=== PATIENT | male | born 1985 | race African-American/Black ===

== ENCOUNTER 2016-11-15 01:43 | Emergency (ER) | payer OTHER ==
--- NOTE | 2016-11-15 01:57 | PDOC ---
History of Present Illness - General Chief Complaint: Rash Stated Complaint: CHEMICAL BURN Time Seen by Provider: 11/15/16 01:57 History Source: Patient - History of Present Illness Initial Comments: 11/15/16 02:25 30 year old male c/o b/l axilla skin maceration after using Veet wax product to body prior to arrival. Past History - Past Medical History Allergies/Adverse Reactions: Allergies Allergy/AdvReac Type Severity Reaction Status Date / Time shellfish derived Allergy Verified 04/10/16 01:23 Home Medications: Ambulatory Orders Methimazole [Tapazole] 10 mg PO DAILY 01/07/15 Diphenhydramine [Benadryl -] 50 mg NR DAILY PRN #20 capsule 04/10/16 Divalproex *ER* [Depakote *ER* -] 250 mg PO DAILY 04/10/16 Bacitracin 1 applic TP TID #1 tube 11/15/16 GI Disorders: Yes (GERD) Seizures: Yes Thyroid Disease: Yes - Immunization History Immunization Up to Date: No - Psycho/Social/Smoking Cessation Hx Anxiety: No Suicidal Ideation: No Smoking History: Unknown if ever smoked Have you smoked in the past 12 months: No Hx Alcohol Use: No Drug/Substance Use Hx: No Substance Use Type: None *DC/Admit/Observation/Transfer Diagnosis at time of Disposition: Skin maceration - Discharge Dispostion Disposition: HOME Condition at time of disposition: Fair - Prescriptions Prescriptions: Bacitracin 1 applic TP TID #1 tube - Patient Instructions Printed Discharge Instructions: How to Perform a Skin Exam, Bacitracin Topical Additional Instructions: apply bacitracin to both axilla. apply ice to the area. keep skin clean and dry follow up with your doctor for a wound check
[2016-11-15 02:30] VITALS: BP 131/87; PULSE 72; TEMP 97.5; BMI 29.5
== END 2016-11-15 02:33 | disposition home or self-care (01) ==
LOC: JER 01:43 → SUPCPDRO 01:43 → JER 02:33
DX: T22.542A Corrosion of first degree of left axilla, initial encounter (principal); T22.5 Corrosion of first degree of shoulder and upper limb, except wrist and hand; T49.4X1A Poisoning by keratolytics, keratoplastics, and other hair treatment drugs and preparations, accidental (unintentional), initial encounter; Y92.038 Other place in apartment as the place of occurrence of the external cause; K21.9 Gastro-esophageal reflux disease without esophagitis; R56.9 Unspecified convulsions; E07.9 Disorder of thyroid, unspecified
CPT/HCPCS: 99281-25

== ENCOUNTER 2017-09-16 12:56 | Emergency (ER) | payer OTHER ==
[2017-09-16 13:01] VITALS: BP 147/72; PULSE 100; TEMP 98.1; BMI 24.3
--- NOTE | 2017-09-16 13:18 | PDOC ---
History of Present Illness - General Chief Complaint: RX Refill Stated Complaint: RX REFILL (PCP SENT) Time Seen by Provider: 09/16/17 13:06 History Source: Patient Exam Limitations: No Limitations - History of Present Illness Initial Comments: 09/16/17 13:15 31 yr pt with history of folliculitus pt asking for refill for permetherin cream pt has used in the past and has had good results Past History - Past Medical History Allergies/Adverse Reactions: Allergies Allergy/AdvReac Type Severity Reaction Status Date / Time shellfish derived Allergy Verified 09/16/17 13:01 Home Medications: Ambulatory Orders Methimazole [Tapazole] 10 mg PO DAILY 01/07/15 Diphenhydramine [Benadryl -] 50 mg NR DAILY PRN #20 capsule 04/10/16 Divalproex *ER* [Depakote *ER* -] 250 mg PO DAILY 04/10/16 Permethrin 5% Topical Cream [Elimite -] 1 applic TP ONCE #1 tube 09/16/17 COPD: No GI Disorders: Yes (GERD) Seizures: Yes Thyroid Disease: Yes (graves disease) - Immunization History Immunization Up to Date: No - Suicide/Smoking/Psychosocial Hx Smoking History: Unknown if ever smoked Have you smoked in the past 12 months: No Hx Alcohol Use: No Drug/Substance Use Hx: No Substance Use Type: None *Physical Exam - Vital Signs Last Vital Signs Temp Pulse Resp BP Pulse Ox 98.1 F 100 H 20 147/72 99 09/16/17 12:57 09/16/17 12:57 09/16/17 12:57 09/16/17 12:57 09/16/17 12:57 - Physical Exam General Appearance: Yes: Nourished, Appropriately Dressed HEENT: positive: EOMI, SALOME Integumentary: positive: Normal Color, Dry, Warm, Other (facial de luna folliculitus , no abscesses, lower legs with same ) *DC/Admit/Observation/Transfer Diagnosis at time of Disposition: Chronic folliculitis - Discharge Dispostion Disposition: HOME Condition at time of disposition: Good - Prescriptions Prescriptions: Permethrin 5% Topical Cream [Elimite -] 1 applic TP ONCE #1 tube - Referrals Referrals: Mary Ann Davis MD [Primary Care Provider] - - Patient Instructions Additional Instructions: use the permetherin cream as directed follow with the tile erector as planned on October 23 cool water to bathe - Post Discharge Activity
== END 2017-09-16 13:19 | disposition home or self-care (01) ==
LOC: JERFT 12:56
DX: L73.8 Other specified follicular disorders (principal)
CPT/HCPCS: 99281-25

== ENCOUNTER 2017-11-12 11:24 | Inpatient (IN) | payer OTHER ==
[2017-11-12 11:57] VITALS: TEMP 98.8; BMI 24.0
--- NOTE | 2017-11-12 12:19 | PDOC ---
Attending Attestation - Resident Resident Name: ChristinaGeraldo lock - ED Attending Attestation I have performed the following: I have examined & evaluated the patient, The case was reviewed & discussed with the resident, I agree w/resident's findings & plan, Exceptions are as noted - HPI HPI: 11/12/17 12:19 31y M hx of graves, seizure d/o, presents with complaint of lightheadedness/ heart racing, cp started when he was walking to the bus. Pt notes he has felt like this for a few days, but feels more lightheaded today than usual. The patient notes that the last time he followed up with his PMD and derm a few weeks ago, he was noted to have a high heart rate. He was given a referral to endocrine, but his appointment is not for another month or two. The pt also endorses mild chest pain/sob. denies any leg sewlling, hemoptysis. GENERAL: The patient is awake, alert, and fully oriented, Nontoxic - in no acute distress, jittery HEAD: Normocephalic, atraumatic. EYES: exalthamos ENT: Normal voice, Moist mucous membranes. NECK: Normal range of motion, supple LUNGS: Breath sounds equal, clear to auscultation bilaterally. No wheezes, no rhonchi, no rales. HEART: tachycardic ABDOMEN: Soft, nontender, No guarding, no rebound. . No CVA tenderness EXTREMITIES: Normal range of motion, no edema. No clubbing or cyanosis. No cords, erythema, or tenderness. NEUROLOGICAL: No facial assymetry, Normal speech, moving all 4 extermities spontaneously and ysmmetrically PSYCH: Normal mood, normal affect. SKIN: Warm, Dry, normal turgor, - Critical Care Time Total Critical Care Time: 35 Critical Care Statement: The care of this patient involved high complexity decision making to prevent further life threatening deterioration of the patient 's condition and/or to evaluate & treat vital organ system(s) failure or risk of failure. - Medical Decision Making 11/12/17 13:13 suspect hyperhtyhridsm no other symptoms to suggest his tachycardia is compensating for another etiology pts labs reviewed noted for very low thryoid function tests based on his TSH and clinical condtion, suspect thyroid storm will give propanolol IV will admit for further management and nik lconsult endocrine
[2017-11-12 12:35] LABS: BASO % 0.5 % (0-2.0); EOS % 2.5 % (0-4.5); HEMATOCRIT 38.7 % (35.4-49); HEMOGLOBIN 13.2 GM/dL (11.7-16.9); LYMPH % 39.5 % (8-40); MCH 28.3 pg (25.7-33.7); MCHC 34.2 g/dl (32.0-35.9); MEAN CELL VOLUME 82.9 fl (80-96); MEAN PLT VOLUME 9.7 fl (7.5-11.1); MONO % 16.6 % (3.8-10.2); NEUT % 40.9 % (42.8-82.8); PLATELET COUNT 210 K/MM3 (134-434); RBC 4.67 M/mm3 (4.00-5.60); RDW 13.7 % (11.9-15.9); WHITE BLOOD COUNT 3.2 K/mm3 (4.0-10.0)
--- NOTE | 2017-11-12 12:37 | PDOC ---
History of Present Illness - General Chief Complaint: Syncope/Near Syncope Stated Complaint: WEAKNESS, DEHYDRATED Time Seen by Provider: 11/12/17 12:18 - History of Present Illness Initial Comments: The patient is a 31M with a history of Graves' Dz and Seizure d/o (not on ppx) who presents with mild, substernal, non-radiating, sharp chest pain associated with palpitations, lightheadedness, and some anxiety. He reports that he chronically feels this way, 2-3 times/month, however, today his symptoms are worse. He denies BLACK, blurry/change in vision, SOB, N/V/D, dysuria, smoking or other drug use. He states that in the past he has been held at his PCP's office before for with similar symptoms, was not given any medication, and allowed to leave once his heart rate slowed. He denies personal history of cardiac dz; however, he states having had a cardiac cath in the past but does not recall the result and denies procedural intervention after. He was also on metoprolol in the past, but it as discontinued by his PCP 'several' years ago because he was told he didn't need it anymore. He endorses a family history of stroke and MD in his aunt. Denies family history of sudden . 11/12/17 12:28 Past History - Past Medical History Allergies/Adverse Reactions: Allergies Allergy/AdvReac Type Severity Reaction Status Date / Time shellfish derived Allergy Verified 11/12/17 12:24 Home Medications: Ambulatory Orders Methimazole [Tapazole] 10 mg PO DAILY 01/07/15 Diphenhydramine [Benadryl -] 50 mg NR DAILY PRN 11/12/17 COPD: No GI Disorders: Yes (GERD) Seizures: Yes Thyroid Disease: Yes (graves disease) - Immunization History Immunization Up to Date: No - Suicide/Smoking/Psychosocial Hx Smoking History: Never smoked Have you smoked in the past 12 months: No Hx Alcohol Use: No Drug/Substance Use Hx: No Substance Use Type: None Review of Systems - Review of Systems Able to Perform ROS?: Yes Comments:: GENERAL/CONSTITUTIONAL: No fever or chills HEAD, EYES, EARS, NOSE AND THROAT: No change in vision. No ear pain or discharge. No sore throat CARDIOVASCULAR: +palpitations, No current chest pain or shortness of breath RESPIRATORY: No cough, wheezing, or hemoptysis GASTROINTESTINAL: No nausea, vomiting, diarrhea or constipation, and denies blood in stool GENITOURINARY: No dysuria, frequency, or change in urination MUSCULOSKELETAL: No joint or muscle swelling or pain. No neck or back pain SKIN: No rash NEUROLOGIC: No headache, vertigo, loss of consciousness, or change in strength/ sensation ENDOCRINE: +Graves' Dz, +anxiety, +palpitations, No increased thirst. No abnormal weight change HEMATOLOGIC/LYMPHATIC: No anemia, easy bleeding, or history of blood clots ALLERGIC/IMMUNOLOGIC: No hives or skin allergy 11/12/17 12:55 Is the patient limited Pashto proficient: No *Physical Exam - Vital Signs Last Vital Signs Temp Pulse Resp BP Pulse Ox 98.8 F 132 H 20 129/79 99 11/12/17 11:52 11/12/17 11:52 11/12/17 11:52 11/12/17 11:52 11/12/17 11:52 - Physical Exam Comments: GENERAL: Awake, alert, and fully oriented, appears anxious HEAD: No signs of trauma, normocephalic, atraumatic EYES: PERRLA, EOMI, sclera anicteric, conjunctiva clear ENT: Hearing grossly normal, nares patent, oropharynx clear without exudates. Dry mucosa NECK: Normal ROM, supple, no lymphadenopathy LUNGS: No distress, speaks full sentences, clear to auscultation bilaterally HEART: Tachycardic with regular rhythm, normal S1 and S2, no murmurs appreciated , peripheral pulses normal and equal bilaterally ABDOMEN: Soft, mild RLQ TTP (reportedly chronic), normoactive bowel sounds. No guarding, no rebound. EXTREMITIES : Normal inspection, Normal range of motion, no edema. No clubbing or cyanosis. NEUROLOGICAL: Cranial nerves II through XII grossly intact. Normal speech, normal gait, no focal sensorimotor deficits SKIN: Warm, Dry, no rashes or lesions noted 11/12/17 12:47 ED Treatment Course - LABORATORY CBC & Chemistry Diagram: 11/12/17 12:30 11/12/17 12:30 Medical Decision Making - Medical Decision Making The patient is a 31M with a history of Graves' Dz and Seizure d/o (not on ppx) who presents with mild, substernal, non-radiating, sharp chest pain associated with palpitations, lightheadedness, and some anxiety. Ddx: ACS, Graves' dx/hyperthyroidism/thyrotoxicosis, PNX, PNA, possibly hypovolemia/dehydration, cocaine/stimulant use, considered but less likely infection ED Course: CMP, CBC, Cardiac Enzymes, TSH, UA, UDS, ECG, CXR 1L NS 11/12/17 12:37 Patient extremely anxious and states that he wants to leave AMA because he feels anxious and threatened. He voiced he feels like he's having a 'Thyroid flair'. However he states that he doesn't feel comfortable but refuses to give specific examples why. The patient appears to be extremely anxious, is tachycardic to the 130s, and diaphoretic. TSH < 0.01, and CXR negative for PNX, not likely PE Propranolol 1mg over 10min for Thyrotoxicosis 11/12/17 14:30 Patient's anxiety moderately improved s/p Propranolol Tachycardia somewhat improved to 110s 11/12/17 15:[address] Layton regarding the patient's Graves'/Thyrotoxicosis. He recommends Methimazole 10mg PO Q8H and Propanolol 10mg PO Q6H. Will give a dose of Methimazole. Patient was only taking Methimazole 10mg PO daily at home. 11/12/17 17:41 Patient eloped from the hospital. Staff plan to contact police to search for patient as he eloped with an IV in place. *DC/Admit/Observation/Transfer Diagnosis at time of Disposition: Thyrotoxicosis Qualifiers: Thyrotoxicosis type: other Thyrotoxic crisis or storm presence: without thyrotoxic crisis or storm Qualified Code(s): E05.80 - Other thyrotoxicosis without thyrotoxic crisis or storm - Discharge Dispostion Disposition: ELOPED Condition at time of disposition: Guarded Decision to Admit order: Yes - Referrals - Patient Instructions - Post Discharge Activity
[2017-11-12 12:51] LABS: ALBUMIN 3.8 g/dl (3.4-5.0); ANION GAP 8 (8-16); BILIRUBIN,TOTAL 0.6 mg/dL (0.2-1.0); BLOOD UREA NITROGEN 15 mg/dL (7-18); CALCIUM 11.5 mg/dL (8.5-10.1); CHLORIDE 98 mmol/L (98-107); CO2 29 mmol/L (21-32); CREATININE 0.6 mg/dL (0.7-1.3); GLUCOSE,RANDOM 94 mg/dL (74-106); SGPT/ALT 27 U/L (12-78); SODIUM 135 mmol/L (136-145); TOT PROT 7.2 g/dl (6.4-8.2)
[2017-11-12 12:59] LABS: ALK PHOS 137 U/L (45-117)
[2017-11-12 13:01] LABS: POTASSIUM 4.6 mmol/L (3.5-5.1); SGOT/AST 48 U/L (15-37)
[2017-11-12 14:26] LABS: URINE APPEARANCE CLEAR; URINE BILIRUBIN NEGATIVE (<2.0 mg/dL); URINE COLOR YELLOW; URINE GLUCOSE (UA) NEGATIVE (NEGATIVE); URINE KETONE NEGATIVE (NEGATIVE); URINE LEUK ESTERASE NEGATIVE (NEGATIVE); URINE NITRITE NEGATIVE (NEGATIVE); URINE PROTEIN NEGATIVE (NEGATIVE); URINE UROBILINOGEN NEGATIVE mg/dL (0.2-1.0)
[2017-11-12 14:36] LABS: OPIATES, URI NEGATIVE ng/ml (CUTOFF=300); URINE AMPHETAMINES NEGATIVE ng/ml (CUTOFF=500); URINE BARBITURATES NEGATIVE ng/ml (CUTOFF=200); URINE BENZODIAZEPINES NEGATIVE ng/ml (CUTOFF=200)
[2017-11-12 14:44] LABS: COCAINE, UR NEGATIVE ng/ml (CUTOFF=300); METHADONE, UR NEGATIVE ng/ml (CUTOFF=300); PHENCYCLIDINE,URINE NEGATIVE ng/ml (CUTOFF=25)
[2017-11-12 14:51] VITALS: BP 126/77; PULSE 113
--- NOTE | 2017-11-12 15:59 | EKG ---
Test Reason : Blood Pressure : / mmHG Vent. Rate : 121 BPM Atrial Rate : 121 BPM P-R Int : 168 ms QRS Dur : 088 ms QT Int : 298 ms P-R-T Axes : 075 041 064 degrees QTc Int : [address] ELEVATION, CONSIDER EARLY REPOLARIZATION, PERICARDITIS, OR INJURY ABNORMAL ECG WHEN COMPARED WITH ECG OF 12-NOV-2017 12:01, NO SIGNIFICANT CHANGE WAS FOUND Confirmed by GARIMA BLOCK MD ([id number]) on 11/12/2017 3:59:18 PM Referred By: Confirmed By:GARIMA BLOCK MD
[2017-11-12] MEDS ORDERED: METHIMAZOLE 10 MG TABLET (FP) PO ONE (17:40)
--- NOTE | 2017-11-12 19:10 | HP ---
Admitting History and Physical - Primary Care Physician PCP: Alexey Crawley - Admission History of Present Illness: 31y M hx of graves, seizure d/o, presents with complaint of lightheadedness/ heart racing, cp started when he was walking to the bus. Pt notes he has felt like this for a few days, but feels more lightheaded today than usual. The patient notes that the last time he followed up with his PMD and derm a few weeks ago, he was noted to have a high heart rate. He was given a referral to endocrine, but his appointment is not for another month or two. The pt also endorses mild chest pain/sob. denies any leg sewlling, hemoptysis. - Past Medical History Endocrine: Yes: Hyperthyroidism - Smoking History Smoking history: Never smoked Have you smoked in the past 12 months: No - Alcohol/Substance Use Hx Alcohol Use: No Home Medications - Allergies Allergies/Adverse Reactions: Allergies Allergy/AdvReac Type Severity Reaction Status Date / Time shellfish derived Allergy Verified 11/12/17 12:24 - Home Medications Home Medications: Ambulatory Orders Methimazole [Tapazole] 10 mg PO DAILY 01/07/15 Diphenhydramine [Benadryl -] 50 mg NR DAILY PRN 11/12/17 Physical Examination Vital Signs: Vital Signs Temperature 98.8 F 11/12/17 11:52 Pulse Rate 113 H 11/12/17 14:50 Respiratory Rate 18 11/12/17 14:50 Blood Pressure 126/77 11/12/17 14:50 O2 Sat by Pulse Oximetry (%) 99 11/12/17 11:52 Constitutional: Yes: No Distress HENT: Yes: Atraumatic Neck: Yes: Supple Cardiovascular: Yes: Regular Rate and Rhythm Respiratory: Yes: CTA Bilaterally Gastrointestinal: Yes: Normal Bowel Sounds Extremities: Yes: WNL Neurological: Yes: Alert, Oriented Labs: CBC, BMP 11/12/17 12:30 11/12/17 12:30 Problem List - Problems (1) Abnormal echocardiogram Code(s): R93.1 - ABNORMAL FINDINGS ON DX IMAGING OF HEART AND COR CIRC (2) Anxiety Code(s): F41.9 - ANXIETY DISORDER, UNSPECIFIED (3) Graves disease Code(s): E05.00 - THYROTOXICOSIS W DIFFUSE GOITER W/O THYROTOXIC CRISIS Assessment/Plan Laboratory Tests 11/12/17 11/12/17 11/12/17 12:30 12:30 14:15 WBC 3.2 L RBC 4.67 Hgb 13.2 Hct 38.7 MCV 82.9 MCH 28.3 MCHC 34.2 RDW 13.7 Plt Count 210 MPV 9.7 Absolute Neuts (auto) 1.3 Neutrophils % 40.9 L Lymphocytes % 39.5 Monocytes % 16.6 H D Eosinophils % 2.5 Basophils % 0.5 Nucleated RBC % 0 Sodium 135 L Potassium 4.6 D Chloride 98 Carbon Dioxide 29 Anion Gap 8 BUN 15 Creatinine 0.6 L Creat Clearance w eGFR > 60 Random Glucose 94 Calcium 11.5 H D Total Bilirubin 0.6 AST 48 H D ALT 27 D Alkaline Phosphatase 137 H Creatine Kinase 114 Troponin I < 0.02 Total Protein 7.2 Albumin 3.8 TSH < 0.01 L D Urine Color Yellow Urine Appearance Clear Urine pH 5.0 Ur Specific [place] 1.008 Urine Protein Negative Urine Glucose (UA) Negative Urine Ketones Negative Urine Blood Negative Urine Nitrite Negative Urine Bilirubin Negative Urine Urobilinogen Negative Ur Leukocyte Esterase Negative Opiates Screen Methadone Screen Barbiturate Screen Phencyclidine Screen Ur Amphetamines Screen MDMA (Ecstasy) Screen Benzodiazepines Screen Cocaine Screen U Marijuana (THC) Screen 11/12/17 14:15 WBC RBC Hgb Hct MCV MCH MCHC RDW Plt Count MPV Absolute Neuts (auto) Neutrophils % Lymphocytes % Monocytes % Eosinophils % Basophils % Nucleated RBC % Sodium Potassium Chloride Carbon Dioxide Anion Gap BUN Creatinine Creat Clearance w eGFR Random Glucose Calcium Total Bilirubin AST ALT Alkaline Phosphatase Creatine Kinase Troponin I Total Protein Albumin TSH Urine Color Urine Appearance Urine pH Ur Specific [place] Urine Protein Urine Glucose (UA) Urine Ketones Urine Blood Urine Nitrite Urine Bilirubin Urine Urobilinogen Ur Leukocyte Esterase Opiates Screen Negative Methadone Screen Negative Barbiturate Screen Negative Phencyclidine Screen Negative Ur Amphetamines Screen Negative MDMA (Ecstasy) Screen Negative Benzodiazepines Screen Negative Cocaine Screen Negative U Marijuana (THC) Screen Negative
[2017-11-13] MEDS ORDERED: METHIMAZOLE 10 MG TABLET (FP) PO SCH (10:00)
--- NOTE | 2017-11-13 17:05 | EKG ---
Test Reason : Blood Pressure : / mmHG Vent. Rate : 111 BPM Atrial Rate : 111 BPM P-R Int : 154 ms QRS Dur : 098 ms QT Int : 316 ms P-R-T Axes : 083 063 071 degrees QTc Int : 429 ms SINUS TACHYCARDIA POSSIBLE LEFT ATRIAL ENLARGEMENT RSR' OR QR PATTERN IN V1 SUGGESTS RIGHT VENTRICULAR CONDUCTION DELAY NONSPECIFIC T WAVE ABNORMALITY ABNORMAL ECG Confirmed by MD KORTNEY, APARNA ([id number]) on 11/13/2017 5:04:36 PM Referred By: Confirmed By:APARNA SHEETS MD
== END 2017-11-12 17:00 | disposition left against medical advice (07) | DRG 424 ==
LOC: JER 11:24 → JERBED 14:22
PROVIDERS: ADMIT Internal Medicine; ATTEND Internal Medicine
DX: E05.80 Other thyrotoxicosis without thyrotoxic crisis or storm (principal); R07.9 Chest pain, unspecified; F41.9 Anxiety disorder, unspecified; K21.9 Gastro-esophageal reflux disease without esophagitis
CPT/HCPCS: 36415; 71045-TC-FY; 80053; 80307; 81003; 82550; 84443; 84484; 85025; 93005; 93010; 99284-25

== ENCOUNTER 2018-02-07 18:44 | Observation (INO) | payer OTHER ==
--- NOTE | 2018-02-07 18:59 | PDOC ---
Rapid Medical Evaluation Chief Complaint: Chest Pain Time Seen by Provider: 02/07/18 18:55 Medical Evaluation: Allergies Allergy/AdvReac Type Severity Reaction Status Date / Time shellfish derived Allergy Verified 11/12/17 12:24 02/07/18 18:56 I have performed a brief in person evaluation of this patient. The patient present with a CC of: Cough and CP Pt has been having CP and cough x 1 week Pertinent PE findings: Lungs Clear Heart Tachy, no rubs or gallops MS: Moves extremities without difficulty. Psych: Appropriate affect I have ordered the following: Cardiac protocol The patient will proceed to the ED for further evaluation: Discharge Disposition - Diagnosis Respiratory abnormalities - Referrals - Patient Instructions - Post Discharge Activity
[2018-02-07 19:02] VITALS: BMI 21.7
[2018-02-07] MEDS ORDERED: ALBUTEROL SO4 2.5/IPRATROPIUM 0.5 INH SOL 3 ML VIAL.NEB. NEB ONE (19:58)
--- NOTE | 2018-02-07 20:04 | PDOC ---
History of Present Illness - General Chief Complaint: Chest Pain Stated Complaint: PALPITATIONS Time Seen by Provider: 02/07/18 18:55 History Source: Patient Exam Limitations: Clinical Condition - History of Present Illness Initial Comments: 02/07/18 19:59 Patient with history of hyperthyroidism on methimazole present with complain of 5 day history of persistent cough, chest tightness, palpitations, nasal congestion and malaise. Patient reported he was seen in another emergency room 5 days ago and was sent home on antibiotics for bronchitis the symptoms still persist. Patient reports finishing the course of 5 day antibiotics. Patient reported last dose of methimazole taking a year ago and only takes his medication when he has hyperthyroidism flareup. patient also report nonbloody diarrhea for 5 days now.Patient denies fever, chills, nausea, vomiting, sweats or dizziness. 02/07/18 20:03 Timing/Duration: other (5 days) Past History - Past Medical History Allergies/Adverse Reactions: Allergies Allergy/AdvReac Type Severity Reaction Status Date / Time shellfish derived Allergy Verified 11/12/17 12:24 Home Medications: Ambulatory Orders Methimazole [Tapazole] 10 mg PO DAILY 01/07/15 Diphenhydramine [Benadryl -] 50 mg NR DAILY PRN 11/12/17 COPD: No GI Disorders: Yes (GERD) Seizures: Yes Thyroid Disease: Yes (graves disease) - Immunization History Immunization Up to Date: No - Suicide/Smoking/Psychosocial Hx Smoking History: Never smoked Have you smoked in the past 12 months: No Hx Alcohol Use: No Drug/Substance Use Hx: No Substance Use Type: None Review of Systems - Review of Systems Able to Perform ROS?: Yes Is the patient limited Uzbek proficient: No Constitutional: Yes: Malaise. No: Chills, Fever, Night Sweats, Weakness HEENTM: Yes: Nose Congestion. No: Eye Pain, Blurred Vision, Tearing, Recent change in vision, Double Vision, Cataracts, Ear Pain, Ocular Prothesis, Ear Discharge, Nose Pain, Tinnitus, Nose Bleeding, Hearing Loss, Throat Pain, Throat Swelling, Mouth Pain, Dental Problems, Difficulty Swallowing, Mouth Swelling, Other Respiratory: Yes: Cough, Productive cough, Other (bronchospasm). No: Orthopnea , SOB with Exertion, SOB at Rest, Stridor, Wheezing, Hemoptysis Cardiac (ROS): Yes: Irregular Heart Rate, Palpitations, Chest Tightness. No: Chest Pain, Edema, Lightheadedness, Syncope ABD/GI: Yes: Diarrhea. No: Abdominal Distended, Nausea, Rectal Bleeding, Vomiting, Abdominal cramping All Other Systems: Reviewed and Negative *Physical Exam - Vital Signs Last Vital Signs Temp Pulse Resp BP Pulse Ox 99.6 F 114 H 22 H 126/70 100 02/07/18 18:53 02/07/18 18:53 02/07/18 18:53 02/07/18 18:53 02/07/18 18:53 - Physical Exam Comments: 02/07/18 20:04 GENERAL: Well developed, well nourished. Awake and alert. No acute distress. mildy anxious HEENT: Normocephalic, atraumatic. PERRLA, EOMI. No conjunctival pallor. Sclera are non-icteric. Moist mucous membranes. Oropharynx is clear. NECK: Supple. Full ROM. CARDIOVASCULAR: Regular rate and rhythm. No murmurs, rubs, or gallops. Distal pulses are 2+ and symmetric. PULMONARY: No evidence of respiratory distress. Lungs clear to auscultation bilaterally. No wheezing, rales or rhonchi. ABDOMINAL: Soft. Non-tender. Non-distended. No rebound or guarding. No organomegaly. Normoactive bowel sounds. MUSCULOSKELETAL Normal range of motion at all joints. EXTREMITIES: No cyanosis. No clubbing. No edema. No calf tenderness. SKIN: Warm and dry. Normal capillary refill. No rashes. No jaundice. NEUROLOGICAL: Alert, awake, appropriate. Gait is normal without ataxia. PSYCHIATRIC: Cooperative. Good eye contact. Appropriate mood General Appearance: Yes: Nourished, Appropriately Dressed, Other (anxious) ED Treatment Course - LABORATORY CBC & Chemistry Diagram: 02/07/18 20:35 02/07/18 20:35 Medical Decision Making - Medical Decision Making 02/07/18 20:04 Patient with history of hyperthyroidism presenting with complain of 5 day history of palpitations, persistent cough, nasal congestion, diarrhea and malaise. Patient seen in another emergency room and given 5 day course of antibiotics which patient does not know the name and still have persistent symptoms. Exam significant for patient being mildly anxious. Lungs clear to auscultation bilateral. Basic labs ordered. Thyroid profile ordered. Chest x- ray ordered. When the treatment ordered to help with bronchospasm. Treat based on imaging lab results. 02/07/18 22:18 elavated tropinis and d-dimer level. TSH low and T3 high. patient likely in thyroid storm. propanolol 60mg given. ASA 325mg PO given. methimazole 10mg PO given. V/Q scan ordered r/o PE instead of CT/PE protocol due to hyperthyroidism. b/l LE doppler ordered to r/o DVT. CXR ordered. low potassium and magnesium levels. will replete. patient to be admitted for observation 02/07/18 22:47 02/08/18 00:05 solu-medrol 125m IV ordered. patient accepted for admission by hospitalist . spoke to bitumastic applier Dr. Durant who will see patient in the AM 02/08/18 00:16 02/08/18 00:17 *DC/Admit/Observation/Transfer Diagnosis at time of Disposition: Respiratory abnormalities Thyrotoxicosis Qualifiers: Thyrotoxicosis type: unspecified thyrotoxicosis type Thyrotoxic crisis or storm presence: with thyrotoxic crisis or storm Qualified Code(s): E05.91 - Thyrotoxicosis, unspecified with thyrotoxic crisis or storm - Discharge Dispostion Condition at time of disposition: Stable Decision to Admit order: Yes Decision to Admit order Date/Time: 02/07/18 22:33 Patient with symptoms of thyroid storm and possible PE. Case discussed with Dr. Layton and hospitalist. both agrees to admit patient for observation. patient to b admitted to telemetry as per Dr. Layton for observation - Referrals - Patient Instructions - Post Discharge Activity
[2018-02-07 20:52] LABS: BASO % 0.6 % (0-2.0); EOS % 0.2 % (0-4.5); HEMATOCRIT 31.3 % (35.4-49); HEMOGLOBIN 10.5 GM/dL (11.7-16.9); LYMPH % 32.8 % (8-40); MCH 27.8 pg (25.7-33.7); MCHC 33.7 g/dl (32.0-35.9); MEAN CELL VOLUME 82.4 fl (80-96); MEAN PLT VOLUME 9.4 fl (7.5-11.1); MONO % 8.4 % (3.8-10.2); PLATELET COUNT 201 K/MM3 (134-434); RBC 3.79 M/mm3 (4.00-5.60); RDW 13.3 % (11.9-15.9); WHITE BLOOD COUNT 7.8 K/mm3 (4.0-10.0)
[2018-02-07 21:18] LABS: ALBUMIN 3.1 g/dl (3.4-5.0); ALK PHOS 106 U/L (45-117); ANION GAP 12 MMOL/L (8-16); BILIRUBIN,TOTAL 0.7 mg/dL (0.2-1); BLOOD UREA NITROGEN 8 mg/dL (7-18); CALCIUM 7.5 mg/dL (8.5-10.1); CHLORIDE 104 mmol/L (98-107); CO2 27 mmol/L (21-32); CREATININE 0.4 mg/dL (0.55-1.3); GLUCOSE,RANDOM 90 mg/dL (74-106); POTASSIUM 3.4 mmol/L (3.5-5.1); SGOT/AST 32 U/L (15-37); SGPT/ALT 27 U/L (13-61); SODIUM 142 mmol/L (136-145); TOT PROT 5.9 g/dl (6.4-8.2)
[2018-02-07 21:25] LABS: INR 1.47 (0.83-1.09); PROTHROMBIN TIME (PATIENT) 17.4 SEC (9.7-13.0)
[2018-02-07] MEDS ORDERED: ASPIRIN 325 MG ENTERIC COATED TABLET (FP) PO ONE (21:45)
[2018-02-07] MEDS ORDERED: ASPIRIN 325 MG ENTERIC COATED TABLET (FP) ONE (22:14)
[2018-02-07] MEDS ORDERED: METHIMAZOLE 10 MG TABLET (FP) PO SCH (23:00)
[2018-02-08] MEDS ORDERED: methylPREDNISolone NA SUCC 125 MG/2 ML VIAL IVPUSH ONE (00:03)
[2018-02-08] MEDS ORDERED: ENOXAPARIN NA (PORCINE) 80 MG/0.8 ML DISP.SYRIN SQ ONE ×2 (00:11→03:22)
[2018-02-08] MEDS ORDERED: POTASSIUM CHLORIDE TABS 20 MEQ TABLET.ER (FP) PO ONE ×2 (02:05→03:21)
--- NOTE | 2018-02-08 02:08 | HP ---
CHIEF COMPLAINT: chest pain, cough, palpitations PCP: Herman @ [facility]; Endo: Calin HISTORY OF PRESENT ILLNESS: This is a 32 year old male with a past medical history of hyperthyroid presented to the ED with cough, chest tightess, palpitations, nasal congestion and malaise since last week. Was seen at [facility] and prescribed azithromycin without relief. Also reports nonbloody diarrhea x 5 days. Pt reports he has not taken his methimazole since May when a physician stopped it because he "didn't need it anymore and it made his blood too thin." ER course was notable for: (1) TSH <0.01; FT4 5.78 (2) troponin 0.08 (3) ddimer 1017 Recent Travel: pt denies PAST MEDICAL HISTORY: hyperthyroid, GERD PAST SURGICAL HISTORY: pt denies Social History: Smoking: quit 2 year ago Alcohol: pt denies Drugs: pt denies Family History: mother with DM father alive and well siblings alive and well Allergies shellfish derived Allergy (Verified 11/12/17 12:24) HOME MEDICATIONS: 3 Medication Instructions omeprazole 20 mg PO DAILY fluticasone nasal spray REVIEW OF SYSTEMS CONSTITUTIONAL: Present: malaise Absent: fever, chills, diaphoresis, generalized weakness, loss of appetite, weight change HEENT: Present: nasal congestion Absent: rhinorrhea, throat pain, throat swelling, difficulty swallowing, mouth swelling, ear pain, eye pain, visual changes CARDIOVASCULAR: Present: chest pain Absent: syncope, palpitations, irregular heart rate, lightheadedness, peripheral edema RESPIRATORY: Present: cough Absent: shortness of breath, dyspnea with exertion, orthopnea, wheezing, stridor , hemoptysis GASTROINTESTINAL: Absent: abdominal pain, abdominal distension, nausea, vomiting, diarrhea, constipation, melena, hematochezia GENITOURINARY: Absent: dysuria, frequency, urgency, hesitancy, hematuria, flank pain, genital pain MUSCULOSKELETAL: Absent: myalgia, arthralgia, joint swelling, back pain, neck pain SKIN: Absent: rash, itching, pallor HEMATOLOGIC/IMMUNOLOGIC: Absent: easy bleeding, easy bruising, lymphadenopathy, frequent infections ENDOCRINE: Absent: unexplained weight gain, unexplained weight loss, heat intolerance, cold intolerance NEUROLOGIC: Absent: headache, focal weakness or paresthesias, dizziness, unsteady gait, seizure, mental status changes, bladder or bowel incontinence PSYCHIATRIC: Absent: anxiety, depression, suicidal or homicidal ideation, hallucinations. PHYSICAL EXAMINATION Vital Signs - 24 hr 3 02/07/18 02/07/18 18:53 19:15 Temperature 99.6 F 99.0 F Pulse Rate 114 H Pulse Rate [ 110 H Left Radial] Respiratory 22 H 20 Rate Blood Pressure 126/70 Blood Pressure 126/72 [Left Arm] O2 Sat by Pulse 100 100 Oximetry (%) GENERAL: Awake, alert, and fully oriented, in no acute distress. HEAD: Normal with no signs of trauma. EYES: Pupils equal, round and reactive to light, extraocular movements intact, sclera anicteric, conjunctiva clear. No lid lag. EARS, NOSE, THROAT: Ears normal, nares patent, oropharynx clear without exudates. Moist mucous membranes. NECK: Normal range of motion, supple without lymphadenopathy, JVD, or masses. LUNGS: Spastic cough noted. Breath sounds equal, clear to auscultation bilaterally. No wheezes, and no crackles. No accessory muscle use. HEART: Regular rate and rhythm, tachycardia noted, normal S1 and S2 without murmur, rub or gallop. ABDOMEN: Soft, nontender, not distended, normoactive bowel sounds, no guarding, no rebound, no masses. No hepatomegaly or splenomegaly. MUSCULOSKELETAL: Normal range of motion at all joints. No bony deformities or tenderness. No CVA tenderness. UPPER EXTREMITIES: 2+ pulses, warm, well-perfused. No cyanosis. No clubbing. No peripheral edema. LOWER EXTREMITIES: 2+ pulses, warm, well-perfused. No calf tenderness. tr peripheral edema bilat ankles NEUROLOGICAL: Cranial nerves II-XII intact. Normal speech. Normal gait. PSYCHIATRIC: Cooperative. Good eye contact. Appropriate mood and affect. SKIN: Warm, dry, normal turgor, no rashes or lesions noted, normal capillary refill. Laboratory Results - last 24 hr 3 02/07/18 02/07/18 02/07/18 20:35 20:35 20:35 WBC 7.8 RBC 3.79 L Hgb 10.5 L Hct 31.3 L D MCV 82.4 MCH 27.8 MCHC 33.7 RDW 13.3 Plt Count 201 MPV 9.4 Absolute Neuts (auto) 4.5 Neutrophils % 58.0 D Lymphocytes % 32.8 Monocytes % 8.4 Eosinophils % 0.2 D Basophils % 0.6 Nucleated RBC % 0 PT with INR 17.40 H INR 1.47 H D-Dimer 1017 H Sodium Potassium Chloride Carbon Dioxide Anion Gap BUN Creatinine Creat Clearance w eGFR Random Glucose Calcium Magnesium Total Bilirubin AST ALT Alkaline Phosphatase Creatine Kinase Troponin I Total Protein Albumin TSH Free T4 3 02/07/18 20:35 WBC RBC Hgb Hct MCV MCH MCHC RDW Plt Count MPV Absolute Neuts (auto) Neutrophils % Lymphocytes % Monocytes % Eosinophils % Basophils % Nucleated RBC % PT with INR INR D-Dimer Sodium 142 Potassium 3.4 L Chloride 104 Carbon Dioxide 27 Anion Gap 12 BUN 8 Creatinine 0.4 L Creat Clearance w eGFR > 60 Random Glucose 90 Calcium 7.5 L Magnesium 1.0 L Total Bilirubin 0.7 AST 32 ALT 27 Alkaline Phosphatase 106 Creatine Kinase 90 Troponin I 0.08 H Total Protein 5.9 L Albumin 3.1 L TSH < 0.01 L Free T4 5.78 H ASSESSMENT/PLAN: 32yM with PMH hyperthyroid and GERD presented to the ED with cough, chest tightness, palpitations, nasal congestion, malaise, nonbloody diarrhea. chest pain with elevated D dimer and troponin - + tachycardia, unable to obtain CTA due to hyperthyroid - US doppler study pending, CXR pending - admit to tele, trend trops - VQ scan ordered, Pulm consult for approval - lovenox 80mg x 1 dose acute bronchitis/URI - tx with azithromycin already, no elevated WBC or fever, defer further antibiotic course - albuterol nebs QID - cont home fluticasone nasal GERD - home omeprazole changed to formulary protonix DVT PPX - received full dose lovenox x 1 dose, f/u for further treatment/PPX FEN - tolerating po - BMP in AM - regular diet as tolerated Dispo: pt currently requires further observation for management of his emergent condition.
[2018-02-08] MEDS ORDERED: methylPREDNISolone NA SUCC 125 MG/2 ML VIAL ONE (03:22)
[2018-02-08] MEDS ORDERED: METHIMAZOLE 10 MG TABLET (FP) PO SCH ×2 (06:00→22:16)
[2018-02-08 06:52] VITALS: BP 129/86; PULSE 96; TEMP 98
[2018-02-08] MEDS ORDERED: ALBUTEROL SO4 0.083% IH SOL 2.5 MG/3 ML VIAL.NEB. NEB SCH (08:00)
--- NOTE | 2018-02-08 09:35 | DS ---
Physical Exam: HOSPITAL COURSE: Date of Admission:02/07/18 Date of Discharge: 02/08/18 Signed out AMA from ED. Minutes to complete discharge: 5 Discharge Summary Reason For Visit: RESPIRATORY ABNORMALITY/THYROIDTOXICOSIS Condition: Stable - Instructions Referrals: Mary Ann Davis MD [Primary Care Provider] - Disposition: AGAINST MEDICAL ADVICE - Home Medications Comprehensive Discharge Medication List: Ambulatory Orders Fluticasone Prop 0.05% Nasal [Flonase -] 1 spray NS BID 02/08/18 Omeprazole 20 mg PO DAILY 02/08/18 This patient is new to me today: Yes Date on this admission: 02/08/18 Emergency Visit: Yes ED Registration Date: 02/07/18 Care time: The patient presented to the Emergency Department on the above date and was hospitalized for further evaluation of their emergent condition. Critical Care patient: No - Discharge Referral Referred to [facility] Med P.C.: No
--- NOTE | 2018-02-08 09:37 | EKG ---
Test Reason : Blood Pressure : / mmHG Vent. Rate : 113 BPM Atrial Rate : 113 BPM P-R Int : 158 ms QRS Dur : 098 ms QT Int : 332 ms P-R-T Axes : 075 043 062 degrees QTc Int : 455 ms SINUS TACHYCARDIA POSSIBLE LEFT ATRIAL ENLARGEMENT INCOMPLETE RIGHT BUNDLE BRANCH BLOCK NONSPECIFIC T WAVE ABNORMALITY ABNORMAL ECG Confirmed by SRAVANTHI DÍAZ MD ([id number]) on 02/08/2018 9:36:44 AM Referred By: Confirmed By:SRAVANTHI DÍAZ MD
[2018-02-08] MEDS ORDERED: PANTOPRAZOLE 20 MG TABLET (FP) PO SCH (10:00)
[2018-02-08] MEDS ORDERED: FLUTICASONE PROP 0.05% 16 GM NASAL SPRAY NS SCH (10:00)
== END 2018-02-08 09:10 | disposition left against medical advice (07) ==
LOC: JER 18:44 → JERBED 22:36 → UNDOADMOB 23:15
PROVIDERS: ADMIT Internal Medicine; ATTEND Nurse Practitioner Acute Care
PROC: 3E0333Z Introduction of Anti-inflammatory into Peripheral Vein, Percutaneous Approach (ICD-10-PCS; principal; 2018-02-07)
PROC: 3E013GC Introduction of Other Therapeutic Substance into Subcutaneous Tissue, Percutaneous Approach (ICD-10-PCS; 2018-02-07)
DX: J98.9 Respiratory disorder, unspecified (principal); E05.91 Thyrotoxicosis, unspecified with thyrotoxic crisis or storm; R77.8 Other specified abnormalities of plasma proteins; R07.9 Chest pain, unspecified; R79.1 Abnormal coagulation profile; J06.9 Acute upper respiratory infection, unspecified; J20.9 Acute bronchitis, unspecified; K21.9 Gastro-esophageal reflux disease without esophagitis
CPT/HCPCS: 36415; 71046-TC-FY; 80053; 82550; 83735; 84439; 84443; 84484; 85025; 85379; 85610; 87324; 87449; 93005; 93010; 93970-TC; 99283-25; G0378

== ENCOUNTER 2018-09-12 03:13 | Inpatient (IN) | payer OTHER ==
--- NOTE | 2018-09-12 04:17 | PDOC ---
History of Present Illness - General Chief Complaint: Chest Pain Stated Complaint: CHEST PAIN Time Seen by Provider: 09/12/18 04:16 History Source: Patient - History of Present Illness Initial Comments: 09/12/18 04:51 32-year-old male complaining of left-sided chest painFor several days. Patient has been seen at [facility] yesterday. Patient had a CAT scan with contrast for abdominal swelling, and leg swelling. Patient reports that bilateral leg swelling is new since discharge from the hospital yesterday. Patient has a past medical history of hyperthyroidism, personality disorder and right-sided heart failure.Patient reports that he recently lost weight after taking Hydroxycut report slight shortness of breath. Denies nausea, vomiting, headache, dizziness.. Past History - Past Medical History Allergies/Adverse Reactions: Allergies Allergy/AdvReac Type Severity Reaction Status Date / Time shellfish derived Allergy Verified 09/12/18 04:45 Home Medications: Ambulatory Orders Fluticasone Prop 0.05% Nasal [Flonase -] 1 spray NS BID 02/08/18 Omeprazole 20 mg PO DAILY 02/08/18 COPD: No GI Disorders: Yes (GERD) Seizures: Yes Thyroid Disease: Yes (graves disease) - Immunization History Immunization Up to Date: No - Suicide/Smoking/Psychosocial Hx Smoking History: Never smoked Have you smoked in the past 12 months: No Hx Alcohol Use: No Drug/Substance Use Hx: No Substance Use Type: None Review of Systems - Review of Systems Able to Perform ROS?: Yes Is the patient limited Marshallese proficient: No Constitutional: No: Symptoms Reported, See HPI, Chills, Diaphoresis, Fever, Loss of Appetite, Malaise, Night Sweats, Weakness, Weight Stable, Unintentional Wgt. Loss, Unexplained wgt Loss, Other HEENTM: No: Symptoms Reported, See HPI, Eye Pain, Blurred Vision, Tearing, Recent change in vision, Double Vision, Cataracts, Ear Pain, Ocular Prothesis, Ear Discharge, Nose Pain, Nose Congestion, Tinnitus, Nose Bleeding, Hearing Loss , Throat Pain, Throat Swelling, Mouth Pain, Dental Problems, Difficulty Swallowing, Mouth Swelling, Other Cardiac (ROS): Yes: Chest Pain, Edema *Physical Exam - Vital Signs Last Vital Signs Temp Pulse Resp BP Pulse Ox 97.8 F 100 H 20 122/92 100 09/12/18 03:13 09/12/18 05:38 09/12/18 05:38 09/12/18 05:38 09/12/18 05:38 - Physical Exam General Appearance: Yes: Appropriately Dressed Respiratory/Chest: positive: Lungs Clear, Normal Breath Sounds Cardiovascular: positive: Regular Rate, Murmur Gastrointestinal/Abdominal: positive: Normal Bowel Sounds, Soft Extremity: positive: Normal Capillary Refill, Normal Inspection, Normal Range of Motion, Swelling (b/l ) Neurologic: positive: Fully Oriented, Alert ED Treatment Course - RADIOLOGY Radiology Studies Ordered: Category Date Time Status CHEST PA & LAT [RAD] Stat Radiology 09/12/18 04:39 Ordered Medical Decision Making - Medical Decision Making 09/12/18 05:08 A: chest pain P: Labs EKG chest xray 09/12/18 06:5 *DC/Admit/Observation/Transfer Diagnosis at time of Disposition: Chest pain Qualifiers: Chest pain type: unspecified Qualified Code(s): R07.9 - Chest pain, unspecified - Discharge Dispostion Condition at time of disposition: Fair - Referrals Referrals: Mary Ann Davis MD [Primary Care Provider] - - Patient Instructions - Post Discharge Activity
--- NOTE | 2018-09-12 04:38 | PDOC ---
Medical Decision Making - Medical Decision Making 09/12/18 04:38 Patient seen by the advanced practice provider under my direct supervision. Ancillary testing reviewed as necessary. I agree with plan as outlined by the advanced practice provider. *DC/Admit/Observation/Transfer Diagnosis at time of Disposition: Chest pain - Discharge Dispostion Condition at time of disposition: Fair - Referrals Referrals: Mary Ann Davis MD [Primary Care Provider] - - Patient Instructions - Post Discharge Activity
[2018-09-12 07:02] LABS: BASO % 0.4 % (0-2.0); EOS % 0.8 % (0-4.5); HEMOGLOBIN 11.3 GM/dL (11.7-16.9); LYMPH % 26.4 % (8-40); MCH 28.8 pg (25.7-33.7); MCHC 33.3 g/dl (32.0-35.9); MEAN CELL VOLUME 86.4 fl (80-96); MEAN PLT VOLUME 8.1 fl (7.5-11.1); MONO % 8.1 % (3.8-10.2); NEUT % 64.3 % (42.8-82.8); PLATELET COUNT 164 K/MM3 (134-434); RBC 3.93 M/mm3 (4.00-5.60); RDW 15.2 % (11.9-15.9); WHITE BLOOD COUNT 4.8 K/mm3 (4.0-10.0)
--- NOTE | 2018-09-12 07:39 | PDOC ---
*Physical Exam - Vital Signs Last Vital Signs Temp Pulse Resp BP Pulse Ox 97.8 F 100 H 20 122/92 100 09/12/18 03:13 09/12/18 05:38 09/12/18 05:38 09/12/18 05:38 09/12/18 05:38 ED Treatment Course - LABORATORY CBC & Chemistry Diagram: 09/12/18 06:30 09/12/18 06:30 - ADDITIONAL ORDERS Additional order review: Laboratory Results 09/12/18 06:30 PT with INR 20.60 H INR 1.74 H Medical Decision Making - Medical Decision Making 09/12/18 07:39 Patient received in signout from VIRGINIA Siegel. Patient here with complaints of lower extremity edema along with chest pain. Patient with history of CHF and hyperthyroidism along with multiple ER visits for the same but has failed to follow up with the saw grinder only receiving workup within institutions via ER. Patient was last seen at [facility] yesterday and has a follow-up appointment with his PCP next week Patient currently has no complaints of chest pain upon my arrival. Patient States was taking Hydroxycut up until 2 months ago for weight loss. Patient also states has been off methimazole for 2 years. Patient pending all labs and x-ray 09/12/18 08:24 Laboratory Tests 09/12/18 09/12/18 09/12/18 06:30 06:30 06:30 WBC 4.8 Hgb 11.3 L Hct 34.0 L Neutrophils % 64.3 PT with INR 20.60 H INR 1.74 H Sodium 142 Potassium 3.6 Chloride 109 H Carbon Dioxide 25 Anion Gap 8 BUN 15 Creatinine 0.9 Est GFR (CKD-EPI)AfAm 128.70 Est GFR (CKD-EPI)NonAf 111.04 Random Glucose 137 H Calcium 7.9 L Magnesium 1.4 L Total Bilirubin 1.2 H Alkaline Phosphatase 180 H B-Natriuretic Peptide 2799.2 H Total Protein 5.6 L Albumin 3.2 L TSH 09/12/18 06:30 WBC Hgb Hct Neutrophils % PT with INR INR Sodium Potassium Chloride Carbon Dioxide Anion Gap BUN Creatinine Est GFR (CKD-EPI)AfAm Est GFR (CKD-EPI)NonAf Random Glucose Calcium Magnesium Total Bilirubin Alkaline Phosphatase B-Natriuretic Peptide Total Protein Albumin TSH 0.01 L Patient ordered for magnesium 1 g. message sent to hospitalist *DC/Admit/Observation/Transfer Diagnosis at time of Disposition: Hyperthyroidism Chest pain Qualifiers: Chest pain type: unspecified Qualified Code(s): R07.9 - Chest pain, unspecified - Discharge Dispostion Decision to Admit order: Yes - Referrals Referrals: Mary Ann Davis MD [Primary Care Provider] - - Patient Instructions - Post Discharge Activity
[2018-09-12 07:41] LABS: ALBUMIN 3.2 g/dl (3.4-5.0); BILIRUBIN,TOTAL 1.2 mg/dL (0.2-1); CALCIUM 7.9 mg/dL (8.5-10.1); CREATININE 0.9 mg/dL (0.55-1.3); MAGNESIUM 1.4 mg/dL (1.8-2.4); N-TERMINAL BNP 2799.2 pg/ml (5-125); POTASSIUM 3.6 mmol/L (3.5-5.1); TOT PROT 5.6 g/dl (6.4-8.2)
[2018-09-12] MEDS ORDERED: MAGNESIUM SULF 50% (8.12 MEQ/2 ML-1 GM VIAL) IVPB ONE (08:25)
[2018-09-12] MEDS ORDERED: CALCIUM GLUCONATE 10% - 1,000 MG/10 ML VIAL IVPB ONE (09:14)
--- NOTE | 2018-09-12 09:40 | HP ---
CHIEF COMPLAINT: Chest discomfort and edema PCP: Dr. Rushing ([facility]) HISTORY OF PRESENT ILLNESS: 32yo M with significant h/o Grave's disease, epilepsy (not on prophylaxis), and personality disorder who presents today with complaints of diffuse thoracic chest pressure. He also endorsed worsening lower extremity edema to his abdomen within the past day or two. Pt states he was at [facility] yesterday where he was found to have a pericardial effusion. He was discharged with instructions to follow-up with an harnessmaker and customer consulting manager for his pericardial effusion and hyperthyroidism respectively. Pt states he has never seen an harnessmaker before and he had his methimazole dose (25mcg) stopped 2 years prior by his PCP. Pt endorses a significant weight loss of 50lbs within the past 6-8 months, however he goes to the gym regularly. He endorses slight anxiety, palpitations, and difficulty sleeping at night. In addition he notes some slight heat and cold intolerance which has worsened within the past months. Pt denies any blurry vision, headache, lightheadedness, dizziness, cough , shortness of breath, abdominal pain, dysuria, polyuria, hematuria, diarrhea/ constipation, n/v, weakness, tremulousness, numbness. In ED cardiac monitoring was placed showing HR fluctuations between ranges of 100bpm to 130bpm. CXR showed enlarged cardiac silhouetted without effusions and ECG showing sinus tachycardia @108bpm with significantly prolonged QTc (568ms) and ? LBBB. TSH noted to be 0.01; T3 and T4 stat collection being done as of this exam. Recent Travel: [place] PAST MEDICAL HISTORY: Grave's Disease Epilepsy Personality disorder unspecified PAST SURGICAL HISTORY: None Social History: Smoking: Former 3 years prior; 3-4 cigs per week Alcohol: Denies Drugs: Denies Lives alone, ambulates independently, independent in ADLs Family History: Mother - DM Father - alive; well No thyroid disease known to pt Allergies shellfish derived Allergy (Verified 09/12/18 04:45) HOME MEDICATIONS: Home Medications Medication Instructions Recorded Omeprazole 20 mg PO DAILY 02/08/18 REVIEW OF SYSTEMS As per HPI PHYSICAL EXAMINATION Vital Signs - 24 hr 09/12/18 09/12/18 03:13 05:38 Temperature 97.8 F Pulse Rate 101 H Pulse Rate [ 100 H Apical] Respiratory 19 20 Rate Blood Pressure 126/85 Blood Pressure 122/92 [Right Arm] O2 Sat by Pulse 97 100 Oximetry (%) GENERAL: NAD, awake, alert, and fully oriented HEENT: NC/AT, exophthalmos noted, no scleral injections noted, EOMI, KRANTHI, sclera anicteric, MMM NECK: L-sided prominent goiter noted without any nodularity appreciated on exam , no JVD, no lymphadenopathy LUNGS: CTA bilaterally. No wheezes, and no crackles. No accessory muscle use. 99 % on RA HEART: Tachycardic with regular rhythm, normal S1 and S2 without murmur, no rubs appreciated. ABDOMEN: Soft, Nt/ND, normoactive bowel sounds, no guarding, minimal nonpitting edema near groin, no hepatomegaly appreciated MUSCULOSKELETAL: No CVA tenderness. EXTREMITIES: 2+ distal pulses throughout, warm, well-perfused. No calf tenderness. 1-2+ nonpitting edema noted in b/l lower extremities NEUROLOGICAL: graphic illustrator II-XII intact. Strength 5/5 throughout all upper and lower extremity moncada. Sensation intact throughout Biceps reflex 2/4, patellar reflex 3/4, Normal speech. Normal gait. No resting or essential tremor noted PSYCHIATRIC: Cooperative. Good eye contact. Flat affect, anxious with flight of ideas intermittently, however can be refocused SKIN: Warm, dry, no rashes noted Laboratory Results 09/12/18 09/12/18 09/12/18 06:30 06:30 06:30 WBC 4.8 RBC 3.93 L Hgb 11.3 L Hct 34.0 L MCV 86.4 MCH 28.8 MCHC 33.3 RDW 15.2 D Plt Count 164 MPV 8.1 D Absolute Neuts (auto) 3.1 Neutrophils % 64.3 Lymphocytes % 26.4 Monocytes % 8.1 Eosinophils % 0.8 D Basophils % 0.4 Nucleated RBC % 0 PT with INR 20.60 H INR 1.74 H Sodium 142 Potassium 3.6 Chloride 109 H Carbon Dioxide 25 Anion Gap 8 BUN 15 Creatinine 0.9 Est GFR (CKD-EPI)AfAm 128.70 Est GFR (CKD-EPI)NonAf 111.04 Random Glucose 137 H Calcium 7.9 L Magnesium 1.4 L Total Bilirubin 1.2 H AST 31 ALT 17 Alkaline Phosphatase 180 H Creatine Kinase 188 Creatine Kinase Index 0.7 CK-MB (CK-2) 1.5 Troponin I 0.03 B-Natriuretic Peptide 2799.2 H Total Protein 5.6 L Albumin 3.2 L TSH 0.01 L ASSESSMENT/PLAN: 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 Suspected pericardial effusion Atypical chest pain Qtc Prolongation Hyperbilirubinemia Normocytic normochromic anemia HypoMagnesemia Personality disorder, unspecified --Propanolol 10mg q6h PO --STAT T3, T4 to be collected --If consistent with thyrotoxicosis will start Methimazole 10mcg q8h NOW as previous admissions have dictated --Will obtain [facility] medical records for pericardial effusion and other significant findings during stay --Record release form signed; fax sent to [facility] records --Cardiac monitoring --Rpt ECG for QTc monitoring at 1500h --Wells Criteria 1.5 given tachycardiac; low risk and unlikely PE at this point --Elevated TB, alk phos, and INR noted on routine labs --Given elevations in all will obtain RUQ US to r/o any biliary tree pathology which could explain stasis --Most likely 2/2 to metabolism changes from excessive T4/T3, but must r/o other causes --Will monitor for acute rise for now --Anemia likely 2/2 to chronic disease --No active signs of bleeding currently; H/H baseline for pt --Can order iron studies for tomorrow --Elopement precautions as patient has eloped on multiple occasions previously --Discussed need to stay for further evaluation of his thyroid and pericardial effusion given his symptoms. FEN: Fluids: not indicated currently Electrolyte abnormalities: HypoMg, cCa 8.5 (will replete both given significant ECG findings) Nutrition: Regular diet as tolerated PPX: DVT - Lovenox SQ daily GI - Continue home omeprazole dose GOC: Full Code Dispo: Telemetry monitoring given significant Qtc elongation and tachycardia Case discussed Hoang Alexadner, DO - IM PGY-2 Visit type - Emergency Visit Emergency Visit: Yes ED Registration Date: 09/12/18 Care time: The patient presented to the Emergency Department on the above date and was hospitalized for further evaluation of their emergent condition. - New Patient This patient is new to me today: Yes Date on this admission: 09/12/18 - Critical Care Critical Care patient: No
[2018-09-12] MEDS ORDERED: MAGNESIUM 1GM/D5W - 1 GM/100 ML IVPB IVPB ONE (10:48)
[2018-09-12] MEDS ORDERED: CALCIUM GLUCONATE 10% - 1,000 MG/10 ML VIAL ONE (10:48)
[2018-09-12] MEDS ORDERED: PANTOPRAZOLE 40 MG TABLET (FP) ONE (10:50)
[2018-09-12 11:05] LABS: INR 1.67 (0.83-1.09); PROTHROMBIN TIME (PATIENT) 19.8 SEC (9.7-13.0)
[2018-09-12] MEDS: PANTOPRAZOLE 20 MG TABLET (FP) PO SCH (11:10)
[2018-09-12] MEDS ORDERED: ENOXAPARIN NA (PORCINE) 40 MG/0.4 ML DISP.SYRIN SQ SCH (12:15)
--- NOTE | 2018-09-12 12:50 | EKG ---
Test Reason : Blood Pressure : / mmHG Vent. Rate : 108 BPM Atrial Rate : 108 BPM P-R Int : 184 ms QRS Dur : 146 ms QT Int : 424 ms P-R-T Axes : 068 238 067 degrees QTc Int : 568 ms SINUS TACHYCARDIA POSSIBLE LEFT ATRIAL ENLARGEMENT RIGHT SUPERIOR AXIS DEVIATION LEFT BUNDLE BRANCH BLOCK ABNORMAL ECG WHEN COMPARED WITH ECG OF 07-FEB-2018 18:48, LEFT BUNDLE BRANCH BLOCK HAS REPLACED INCOMPLETE RIGHT BUNDLE BRANCH BLOCK Confirmed by ABBI MCDONNELL, ABELINO ([id number]) on 09/12/2018 12:50:21 PM Referred By: Confirmed By:ABELINO GO MD
--- NOTE | 2018-09-12 13:30 | PN ---
Teaching Attending Note Name of Resident: Hoang Alexander ATTENDING PHYSICIAN STATEMENT I saw and evaluated the patient. I reviewed the resident's note and discussed the case with the resident. I agree with the resident's findings and plan as documented. SUBJECTIVE: CC: Chest pain HPI: 32 y/o man with h/o hyperthyroidism, Epilepsy, personality problems, who presented with CP. His cp is describes as sharp pain on both sides anteriorly, which is worse with deep inspiration. He denies any change with exertion, bending forward, or food intake. He described the pain as pressure to dr. Alexander. pain stated yesterday and is intermittent . he was seen in [facility] 2 days ago and was discharged form ER after being diagnosed with pericardial effusion. He reports being taken off his methimazole 2 years ago. he denies alcohol, or drug use. reports LE edema x 2-3 weeks. denies palpitations. reviewing the records, he was admitted in 01/31 and was started on topazol, but he left AMA . in ER, he was found to have sinus tachycardia . OBJECTIVE: Anxious, aggravated, partially cooperative. HEENT: MMM, EOMI, round equal pupils, reactive to light, no facial droop. tongue and uvula at mid line CV: tachy, regular rhythm, no MRG Lungs: CTAB Abd: soft, possibly enlarged L hepatic lobe. Abd wall edema. Ext: edema on legs and thighs. no erythema . No fungal infection in feet no tremors in hands ASSESSMENT AND PLAN: 32 y/o man with h/o hyperthyroidism, Epilepsy, personality problems, who presented with CP. 1-Thyrotoxicosis: not compliant - start propranolol and methimazole - consult endocrine - monitor on tele - will need out patient US and thyroid scan and f/u with endo 2- LE edema: could be due to cardiomyopathy form chronic thyrotoxicosis. Need to r/o renal /liver causes - echo - might need to start lasix, but will wait to see the status of the pericardial effusin first - UA - urine protein /cr ratio 3- Reported h/o pericardial effusion: - request faxed to [facility] to obtain echo reprot - obtain echo today - no signs of tamponade. tachycardia is likely due to thyrotoxicosis. he has no JVD, no hypotension. 4- Elevated bili and Alk phos: could be due to hepatic congestion. liver is palpated on exam. - US pending . trend LFTS 5- DVT PX: will use SCDs since he reports pericardial effusion. HLOC
--- NOTE | 2018-09-12 15:52 | CON.CARD ---
Consult Consult Specialty:: cardio - History of Present Illness Chief Complaint: edema History of Present Illness: 32 M here with abdomen/leg swelling. few weeks ago felt swollen--says resolved on its own, no diuretics. reports wt loss of 50 lb in 6-8 mo went to [facility] yesterday where CT showed (pt provides report for my review): "heart enlarged. pericardial effusion. heterogenous mottled appearance of the liver which may be due to congestive heapthopathy, poossibly due to right heart dysfunction. small amt of ascites. moderate body wall anasarca. consteallation of findings are most suggestive of fluid overload possibly due to right heart dysfunction." pt was given rx for lasix and discharged to f/u with pmd (provides me copy of d/ c instructions for review). did not yet mushroom picker the lasix. noted his legs seemed more swollen at home so came to ER today at . also noted vague chest heaviness earlier, which has resolved. denies sob. states he has seen his PMD regularly and until 2-3 mo ago was not told of thyroid problem. referred to alarm technician for abnormal labs 2-3 mo ago. he denies etoh, drug use. denies FH of cmp/chf PMH: Grave's disease, epilepsy (not on prophylaxis), personality disorder, anxiety - Alcohol/Substance Use Hx Alcohol Use: No - Smoking History Smoking history: Never smoked Have you smoked in the past 12 months: No Home Medications - Allergies Allergies/Adverse Reactions: Allergies Allergy/AdvReac Type Severity Reaction Status Date / Time shellfish derived Allergy Verified 09/12/18 04:45 - Home Medications Home Medications: Ambulatory Orders Omeprazole 20 mg PO DAILY 02/08/18 Review of Systems - Review of Systems Constitutional: denies: Chills, Fever Eyes: denies: Eye Pain HENT: denies: Nasal Congestion Neck: denies: Stiffness Cardiovascular: denies: Palpitations Respiratory: denies: Orthopnea, PND Gastrointestinal: denies: Diarrhea, Rectal Bleeding Genitourinary: denies: Burning, Hematuria Musculoskeletal: denies: Muscle Pain Integumentary: denies: Rash Neurological: denies: Numbness, Seizure, Syncope Endocrine: denies: Excessive Sweating Hematology/Lymphatic: denies: Excessive Bleeding Vital Signs: Vital Signs Temperature 98.4 F 09/12/18 11:00 Pulse Rate 96 H 09/12/18 14:45 Respiratory Rate 16 09/12/18 14:45 Blood Pressure 109/73 09/12/18 14:45 O2 Sat by Pulse Oximetry (%) 100 09/12/18 14:45 Constitutional: Yes: Well Nourished, No Distress Eyes: No: Sclera Icterus HENT: No: Nasal Congestion Neck: No: Decreased ROM Respiratory: Yes: CTA Bilaterally. No: Accessory Muscle Use, Rales, Wheezes Gastrointestinal: Yes: Normal Bowel Sounds. No: Distention, Hepatomegaly, Palpable Mass, Tenderness Cardiovascular: Yes: Regular Rate and Rhythm JVD: Yes Carotid Bruit: No PMI: Non-Displaced Heart Sounds: Yes: S1, S2, S3. No: Gallop Murmur: No: Systolic Murmur, Diastolic Murmur Musculoskeletal: Yes: Other (No kyphosis) Extremities: No: Cool, Cyanosis Edema: No Peripheral Pulses: 2+ Left Carotid, 2+ Right Carotid, 2+ Left Doralis Pedis, 2+ Right Dorsalis Pedis Integumentary: No: Jaundice Neurological: Yes: Alert, Oriented (x3) Psychiatric: No: Agitated - Other Data Labs, Other Data: CBC, BMP 09/12/18 06:30 09/12/18 06:30 INR, PTT INR 1.67 (0.83-1.09) H 09/12/18 06:30 Troponin, BNP 09/12/18 06:30 Troponin I 0.03 B-Natriuretic Peptide 2799.2 H Troponin, BNP 09/12/18 06:30 Troponin I 0.03 B-Natriuretic Peptide 2799.2 H Laboratory Tests 09/12/18 09/12/18 09/12/18 06:30 06:30 06:30 WBC 4.8 Hgb 11.3 L Plt Count 164 INR 1.67 H Sodium 142 Potassium 3.6 Carbon Dioxide 25 BUN 15 Creatinine 0.9 Magnesium 1.4 L AST 31 ALT 17 Creatine Kinase 188 Troponin I 0.03 B-Natriuretic Peptide 2799.2 H TSH 09/12/18 06:30 WBC Hgb Plt Count INR Sodium Potassium Carbon Dioxide BUN Creatinine Magnesium AST ALT Creatine Kinase Troponin I B-Natriuretic Peptide TSH 0.01 L Assessment/Plan Echo 2014: nl lv, nl rv, no sig valve path; it was remarked that apical inferior area not well seen ECG: sinus tach, 1st degr AVB. nonspecific IVCD very wide. far right QRS axis-- all new vs 01/31. (QRS wider and axis shifted more to right vs yesterday's ecg from outside ER, given to me to review) CXR: enlarged heart--NO CHANGE VS 01/31. clear lungs/pleura MY REVIEW: HEART SHADOW IS ENLARGED VS PRIOR. chest pain, cardiomegaly clinical evidence of right heart failure and congestive hepatopathy: -small ascites, soft tissue anasarca, pericardial effusion (no size reported) on CT from outside ER yesterday. cardiomegaly on CXR here does in fact look new vs 01/31 -echo ordered here--pt declined earlier b/c wanted to nap. portable bedside echo in ER reviewed by me: severe, global LV hypo (EF approx 20-25%). moderate RV hypo. ONLY SMALL EFFUSION. -no hypotension or clinical tamponade -ECG markedly abnormal suspect due to underlying cardiomyopathy (very wide QRS with far right axis)--? related to chronic uncontrolled hyperthyroidism -BNP 2700 (was undetectable here in 2014). + S3. + JVD. no hepatomegaly or pulsatile liver appreciated. -will obtain official echo in AM -start lasix 40 IV qd -trend LFTS, coags -defer BB or EV-I until volume status much improved grave's dz, hyperthyroidism: -TSH suppressed here -signif wt loss -per hospitalist anemia, mild: -per hospitalist
[2018-09-12] MEDS ORDERED: ENOXAPARIN NA (PORCINE) 40 MG/0.4 ML DISP.SYRIN SQ ONE (17:32)
[2018-09-12] MEDS ORDERED: FUROSEMIDE 40 MG/4 ML INJECTABLE VIAL ONE (18:24)
[2018-09-12] MEDS: FUROSEMIDE 40 MG/4 ML INJECTABLE VIAL IVPUSH SCH (18:38)
[2018-09-12] MEDS: METHIMAZOLE 10 MG TABLET (FP) PO SCH (18:39)
[2018-09-12 19:19] LABS: MAGNESIUM 1.5 mg/dL (1.8-2.4)
[2018-09-12 22:02] LABS: PH,URINE 5.5 (5.0-8.0); URINE APPEARANCE CLEAR; URINE BILIRUBIN NEGATIVE (NEGATIVE); URINE COLOR YELLOW; URINE GLUCOSE (UA) NEGATIVE (NEGATIVE); URINE KETONE NEGATIVE (NEGATIVE); URINE LEUK ESTERASE NEGATIVE (NEGATIVE); URINE NITRITE NEGATIVE (NEGATIVE); URINE PROTEIN NEGATIVE (NEGATIVE); URINE UROBILINOGEN 0.2 mg/dL (0.2-1.0)
[2018-09-13] MEDS ORDERED: diphenhydrAMINE HCL 25 MG CAPSULE (FP) PO ONE (00:53)
[2018-09-13] MEDS: METHIMAZOLE 10 MG TABLET (FP) PO SCH ×3 (06:22→22:10)
[2018-09-13 08:02] LABS: HEMATOCRIT 33.6 % (35.4-49); HEMOGLOBIN 11.2 GM/dL (11.7-16.9); MCH 28.6 pg (25.7-33.7); MCHC 33.2 g/dl (32.0-35.9); MEAN PLT VOLUME 8.6 fl (7.5-11.1); PLATELET COUNT 159 K/MM3 (134-434); RBC 3.91 M/mm3 (4.00-5.60); RDW 15.3 % (11.9-15.9); WHITE BLOOD COUNT 4.9 K/mm3 (4.0-10.0)
[2018-09-13 08:33] LABS: INR 1.59 (0.83-1.09); PROTHROMBIN TIME (PATIENT) 18.8 SEC (9.7-13.0)
[2018-09-13 08:56] LABS: ALBUMIN 3.2 g/dl (3.4-5.0); BILIRUBIN,TOTAL 0.9 mg/dL (0.2-1); CALCIUM 8.1 mg/dL (8.5-10.1); CREATININE 0.9 mg/dL (0.55-1.3); MAGNESIUM 1.7 mg/dL (1.8-2.4); POTASSIUM 3.4 mmol/L (3.5-5.1); TOT PROT 5.5 g/dl (6.4-8.2)
--- NOTE | 2018-09-13 09:15 | CONSULT ---
Consult Consult Specialty:: Endocrinology Referred by:: Dr Kat Reason for Consultation:: Hyperthyroidism - History of Present Illness Chief Complaint: Chest pain History of Present Illness: This is a 32 y/o M with nt h/o Grave's disease, epilepsy (not on prophylaxis), and personality disorder who presents today with complaints of diffuse thoracic chest pressure. He also endorsed worsening lower extremity edema to his abdomen within the past day or two. Pt states he was at [facility] yesterday where he was found to have a pericardial effusion and had CT Scan with contrast. He was discharged with instructions to follow-up with an children's service supervisor and motor vehicle examiner for his pericardial effusion and hyperthyroidism respectively. Pt states he has never seen an children's service supervisor before and he had his methimazole dose (25mcg) stopped 2 years prior by his PCP. Pt endorses a significant weight loss of 50lbs within the past 6-8 months, however he goes to the gym regularly. He says he didn't go for ODONNELL ablation of thyroid because he doesn't want to gain weight from hypothyroidism. - History Source History Provided By: Patient, Medical Record - Past Medical History Endocrine: Yes: Hyperthyroidism - Alcohol/Substance Use Hx Alcohol Use: No - Smoking History Smoking history: Never smoked Have you smoked in the past 12 months: No Home Medications - Allergies Allergies/Adverse Reactions: Allergies Allergy/AdvReac Type Severity Reaction Status Date / Time shellfish derived Allergy Verified 09/12/18 04:45 - Home Medications Home Medications: Ambulatory Orders Omeprazole 20 mg PO DAILY 02/08/18 Metoprolol Succinate [Toprol Xl] 25 mg PO DAILY 09/13/18 Family Disease History - Family Disease History Other Family History: No family h/o thyroid disorder Review of Systems - Review of Systems Constitutional: reports: No Symptoms Eyes: reports: No Symptoms HENT: reports: No Symptoms Neck: reports: No Symptoms Cardiovascular: reports: Chest Pain Respiratory: reports: No Symptoms Gastrointestinal: reports: No Symptoms Musculoskeletal: reports: No Symptoms Neurological: reports: No Symptoms Endocrine: reports: Unexplained Weight Loss Physical Exam Vital Signs: Vital Signs Temperature 97.8 F 09/13/18 06:00 Pulse Rate 88 09/13/18 06:00 Respiratory Rate 20 09/13/18 06:00 Blood Pressure 110/56 L 09/13/18 06:00 O2 Sat by Pulse Oximetry (%) 98 09/13/18 04:15 Constitutional: Yes: No Distress, Calm Eyes: Yes: Conjunctiva Clear, EOM Intact HENT: Yes: Atraumatic, Normocephalic Neck: Yes: Supple, Trachea Midline, Other (No thyroid bruit) Cardiovascular: Yes: Regular Rate and Rhythm Respiratory: Yes: Regular, CTA Bilaterally Gastrointestinal: Yes: Normal Bowel Sounds, Soft Musculoskeletal: Yes: WNL Extremities: Yes: WNL Edema: No Neurological: Yes: Alert, Oriented Labs: CBC, BMP 09/13/18 07:11 09/13/18 07:11 Assessment/Plan AP: Hyperthyroidism Continue Methimazole 10mg TID Propranolol 10 mg Q6H Repeat TFT tomorrow In view of ?CT with Contrast will increase dose of Methimazole if FT4 is not improving. CHF: Cardiology following ? Pericardial effusion Will f/u
--- NOTE | 2018-09-13 10:13 | PN ---
Progress Note, Physician Chief Complaint: TELE: NSR Denies CP, SOB - Current Medication List Current Medications: Active Medications Furosemide (Lasix Injection -) 40 mg IVPUSH DAILY [facility] Last Admin: 09/12/18 18:38 Dose: 40 mg Methimazole (Tapazole -) 10 mg PO ONCE ONE Stop: 09/13/18 11:04 Methimazole (Tapazole -) 10 mg PO TID [facility] Last Admin: 09/13/18 06:22 Dose: 10 mg Pantoprazole Sodium (Protonix -) 20 mg PO DAILY [facility] Last Admin: 09/12/18 11:10 Dose: 20 mg Propranolol HCl (Inderal -) 10 mg PO Q6HPO [facility] Last Admin: 09/13/18 06:21 Dose: 10 mg - Objective Vital Signs: Vital Signs Temperature 97.8 F 09/13/18 06:00 Pulse Rate 88 09/13/18 06:00 Respiratory Rate 20 09/13/18 06:00 Blood Pressure 110/56 L 09/13/18 06:00 O2 Sat by Pulse Oximetry (%) 98 09/13/18 04:15 Constitutional: Yes: No Distress, Calm Eyes: Yes: Conjunctiva Clear Cardiovascular: Yes: Regular Rate and Rhythm Respiratory: Yes: CTA Bilaterally Gastrointestinal: Yes: Soft Edema: No Neurological: Yes: Alert Labs: CBC, BMP 09/13/18 07:11 09/13/18 07:11 INR, PTT INR 1.59 (0.83-1.09) H 09/13/18 07:11 Laboratory Tests 09/12/18 09/12/18 09/13/18 06:30 18:15 07:11 WBC 4.9 Hgb 11.2 L Plt Count 159 Sodium Potassium BUN Creatinine Troponin I 0.03 0.03 B-Natriuretic Peptide 2799.2 H 09/13/18 07:11 WBC Hgb Plt Count Sodium 141 Potassium 3.4 L BUN 20 H Creatinine 0.9 Troponin I B-Natriuretic Peptide - ....Imaging EKG: Image Reviewed (TELE: NSR) Assessment/Plan Assessment/Plan Echo 2015: nl lv, nl rv, no sig valve path; it was remarked that apical inferior area not well seen ECG: sinus tach, 1st degr AVB. nonspecific IVCD very wide. far right QRS axis-- all new vs 01/31. (QRS wider and axis shifted more to right vs yesterday's ecg from outside ER, given to me to review) CXR: enlarged heart--NO CHANGE VS 01/31. clear lungs/pleura chest pain, cardiomegaly clinical evidence of right heart failure and congestive hepatopathy: -small ascites, soft tissue anasarca, pericardial effusion (no size reported) on CT from outside ER yesterday. cardiomegaly on CXR here does in fact look new vs 01/31 -F/u official echo -no hypotension or clinical tamponade -ECG markedly abnormal suspect due to underlying cardiomyopathy (very wide QRS with far right axis)--? related to chronic uncontrolled hyperthyroidism -BNP 2700 (was undetectable here in 2015). + S3. + JVD. no hepatomegaly or pulsatile liver appreciated. -cont IV Lasix -trend LFTS, coags -defer BB or EV-I until volume status much improved grave's dz, hyperthyroidism: -TSH suppressed here -signif wt loss -per hospitalist anemia, mild: -per hospitalist
[2018-09-13] MEDS: PANTOPRAZOLE 20 MG TABLET (FP) PO SCH (10:29)
[2018-09-13] MEDS: FUROSEMIDE 40 MG/4 ML INJECTABLE VIAL IVPUSH SCH (10:29)
[2018-09-13] MEDS ORDERED: METHIMAZOLE 10 MG TABLET (FP) PO ONE (11:03)
--- NOTE | 2018-09-13 11:38 | ECHO ---
Name: KRAIG ABDUL Exam:Adult Echocardiogram Study Date: 09/13/2018 08:36 AM Age: 32 yrs Reason For Study: Pericardial Effusion Height: 74 in Weight: 180 lb BSA: 2.1 m2 MMode/2D Measurements & Calculations IVSd: 0.87 cm Ao root diam: 2.9 cm LVIDd: 6.4 cm LA dimension: 4.4 cm LVIDs: 5.0 cm LVPWd: 1.00 cm LVPWs: 2.2 cm EDV(Teich): 208.9 ml ESV(Teich): 120.9 ml LVOT diam: 1.8 cm RV S Jesse: 5.0 cm/sec Doppler Measurements & Calculations MV E max jesse: 74.2 cm/sec Ao V2 max: 89.2 cm/sec MV A max jesse: 35.9 cm/sec Ao max P.2 mmHg MV E/A: 2.1 Ao V2 mean: 64.2 cm/sec MV dec time: 0.12 sec Ao mean P.9 mmHg Ao V2 VTI: 14.0 cm MERI(I,D): 1.9 cm2 MERI(V,D): 1.8 cm2 LV V1 max P.7 mmHg MR max jesse: 382.3 cm/sec LV V1 mean P.80 mmHg MR max P.5 mmHg LV V1 max: 64.6 cm/sec LV V1 mean: 41.5 cm/sec LV V1 VTI: 10.2 cm SV(LVOT): 26.2 ml TV V2 max: 190.0 cm/sec TV max P.4 mmHg TR max jesse: 226.5 cm/sec PA V2 max: 75.6 cm/sec TR max P.6 mmHg PA max P.3 mmHg Med Peak E' Jesse: 4.1 cm/sec Med E/e': 18.3 Lat Peak E' Jesse: 8.6 cm/sec Lat E/e': 8.6 Left Ventricle The left ventricle is moderately dilated. Ejection Fraction = 15-20%. There is severe global hypokine sis of the left ventricle. Right Ventricle The right ventricle is mildly dilated. The right ventricular systolic function is mildly reduced. Atria The left atrium is moderately dilated. The right atrium is mildly dilated. Mitral Valve The mitral valve is normal in structure and function. There is no mitral valve stenosis. There is mil d mitral regurgitation. Tricuspid Valve The tricuspid valve is normal in structure and function. There is mild tricuspid regurgitation. Right ventricular systolic pressure is normal. Aortic Valve The aortic valve is trileaflet. No hemodynamically significant valvular aortic stenosis. No aortic regurgitation is present. Pulmonic Valve The pulmonic valve is not well seen, but is grossly normal. There is no pulmonic valvular stenosis. M ild pulmonic valvular regurgitation. Great Vessels The aortic root is normal size. Pericardium/Pleura Trivial pericardial effusion not hemodynamically significant. Interpretation Summary The left ventricle is moderately dilated. There is severe global hypokinesis of the left ventricle. Ejection Fraction = 15-20%. The right ventricle is mildly dilated. The right ventricular systolic function is mildly reduced. The left atrium is moderately dilated. The right atrium is mildly dilated. There is mild mitral regurgitation. There is mild tricuspid regurgitation. Right ventricular systolic pressure is normal. Trivial pericardial effusion not hemodynamically significant MD Morejon *Carla 09/13/2018 11:38 AM
[2018-09-13 12:40] LABS: RATIO URIN PROTEIN/URIN CREAT 0.44 MG/DL
[2018-09-13] MEDS ORDERED: POTASSIUM CHLORIDE TABS 20 MEQ TABLET.ER (FP) PO ONE (12:42)
[2018-09-13] MEDS ORDERED: MAGNESIUM OXIDE 400 MG TABLET (FP) PO ONE ×2 (12:43→20:00)
--- NOTE | 2018-09-13 14:26 | PN ---
Physical Exam: SUBJECTIVE: Patient seen and examined at bedside. no complaints. requesting allergy meds. denies fever, cp ,sob, n/v/d, urinary sxs OBJECTIVE: Vital Signs Period Temp Pulse Resp BP Sys/Hicks Pulse Ox Last 24 Hr 97.8 F-98.2 F 88-109 16-20 109-133/56-86 98-100 GENERAL: NAD, awake, alert, and fully oriented,l thin appearing HEENT: NC/AT, no scleral injections noted, EOMI, KRANTHI, sclera anicteric, MMM NECK: no JVD, no lymphadenopathy LUNGS: CTAB HEART: RRR, normal S1 and S2 without murmur, no rubs appreciated. ABDOMEN: Soft, Nt/ND, normoactive bowel sounds, no guarding, no hepatomegaly appreciated MUSCULOSKELETAL: No CVA tenderness. EXTREMITIES: 2+ distal pulses throughout, warm, well-perfused. No calf tenderness. 1-2+ nonpitting edema noted in b/l lower extremities NEUROLOGICAL: dealer development manager II-XII intact. Strength 5/5 throughout all upper and lower extremity [place]. Sensation intact throughout Biceps reflex 2/4, patellar reflex 3/4, Normal speech. Normal gait. No resting or essential tremor noted PSYCHIATRIC: Cooperative. Good eye contact. SKIN: Warm, dry, no rashes noted Laboratory Results - last 24 hr 09/12/18 09/12/18 09/13/18 18:15 21:30 07:11 WBC 4.9 RBC 3.91 L Hgb 11.2 L Hct 33.6 L MCV 86.0 MCH 28.6 MCHC 33.2 RDW 15.3 Plt Count 159 MPV 8.6 PT with INR INR Sodium Potassium Chloride Carbon Dioxide Anion Gap BUN Creatinine Est GFR (CKD-EPI)AfAm Est GFR (CKD-EPI)NonAf Random Glucose Calcium Magnesium 1.5 L Total Bilirubin AST ALT Alkaline Phosphatase Troponin I 0.03 Total Protein Albumin Urine Color Yellow Urine Appearance Clear Urine pH 5.5 Ur Specific [place] 1.005 L Urine Protein Negative Urine Glucose (UA) Negative Urine Ketones Negative Urine Blood Negative Urine Nitrite Negative Urine Bilirubin Negative Urine Urobilinogen 0.2 Ur Leukocyte Esterase Negative U Random Total Protein Urine Creatinine Protein/Creatinin Ratio 09/13/18 09/13/18 09/13/18 07:11 07:11 11:10 WBC RBC Hgb Hct MCV MCH MCHC RDW Plt Count MPV PT with INR 18.80 H INR 1.59 H Sodium 141 Potassium 3.4 L Chloride 110 H Carbon Dioxide 28 Anion Gap 4 L BUN 20 H Creatinine 0.9 Est GFR (CKD-EPI)AfAm 128.70 Est GFR (CKD-EPI)NonAf 111.04 Random Glucose 81 Calcium 8.1 L Magnesium 1.7 L Total Bilirubin 0.9 AST 28 ALT 16 Alkaline Phosphatase 173 H Troponin I Total Protein 5.5 L Albumin 3.2 L Urine Color Urine Appearance Urine pH Ur Specific [place] Urine Protein Urine Glucose (UA) Urine Ketones Urine Blood Urine Nitrite Urine Bilirubin Urine Urobilinogen Ur Leukocyte Esterase U Random Total Protein 7.1 Urine Creatinine 16.0 L Protein/Creatinin Ratio 0.440 Active Medications Generic Name Dose Route Start Last Admin Trade Name Freq PRN Reason Stop Dose Admin Furosemide 40 mg 09/12/18 17:00 09/13/18 10:29 Lasix Injection - IVPUSH 40 mg DAILY YAQUELIN Administration Methimazole 10 mg 09/12/18 19:00 09/13/18 06:22 Tapazole - PO 10 mg TID YAQUELIN Administration Pantoprazole Sodium 20 mg 09/12/18 10:45 09/13/18 10:29 Protonix - PO 20 mg DAILY YAQUELIN Administration Propranolol HCl 10 mg 09/12/18 15:00 09/13/18 12:37 Inderal - PO 10 mg Q6HPO YAQUELIN Administration Echo 2015: nl lv, nl rv, no sig valve path; it was remarked that apical inferior area not well seen ECG: sinus tach, 1st degr AVB. nonspecific IVCD very wide. far right QRS axis-- all new vs 01/31. (QRS wider and axis shifted more to right vs yesterday's ecg from outside ER) CXR: enlarged heart--NO CHANGE VS 01/31. clear lungs/pleura [id number] US/ABDOMEN US -LIMITED Evaluate for biliary tree pathology. Upper abdomen ultrasound. The liver measures 18 cm in sagittal length with a slightly dense and coarse echotexture. A small amount of free fluid/ascites is present in the right upper quadrant. The gallbladder is adequately distended measuring 5.2 cm in sagittal length without gross intraluminal stones. There is significant diffuse thickening of its wall measuring at these 6 mm on the sagittal images and measuring up to 1.2 cm in thickness on the transverse images. A small amount of pericholecystic free fluid is present no intra or extrahepatic bile duct dilatation is seen. The right and left kidney measured 12.4 and 10.7 cm , respectively. Both kidneys appear unremarkable. The spleen measures 10.9 x 5.2 cm in sagittal and transverse dimension with a homogeneous echotexture. A small amount of free fluid is present in the left upper quadrant. Visualized portion of the pancreas appears unremarkable. Visualized portion of the proximal abdominal aorta and inferior vena cava appear unremarkable. Normal flow in the main portal vein. Images of the lower quadrants were not obtained to evaluate for free fluid/ ascites IMPRESSION: Borderline hepatomegaly with mild fatty infiltration versus hepatocellular disease. Adequately distended gallbladder with significant diffuse thickening of its wall and without gross intraluminal stones. Correlate clinically to rule out acalculous cholecystitis. There is a small amount of free fluid/ascites in the right and left upper quadrant as well as in the pericholecystic region. Both kidneys appear unremarkable. Reported By: Mary Quevedo MD 09/12/18 [id number] Interpretation Summary The left ventricle is moderately dilated. There is severe global hypokinesis of the left ventricle. Ejection Fraction = 15-20%. The right ventricle is mildly dilated. The right ventricular systolic function is mildly reduced. The left atrium is moderately dilated. The right atrium is mildly dilated. There is mild mitral regurgitation. There is mild tricuspid regurgitation. Right ventricular systolic pressure is normal. Trivial pericardial effusion not hemodynamically significant MD Morejon *Francescone 09/13/2018 11:38 AM ASSESSMENT/PLAN: 32 yo M PMH hyperthyroidism, Epilepsy, personality problems, who presented with CP, and found w/ 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 and w/ Acute systolic CHF 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 - improving Continue Methimazole 10mg TID Propranolol 10 mg Q6H -Cardiac monitoring -endo consulted, Dr. Berg -Will obtain [facility] medical records to see if pt received any iodine (contrast ) that may have caused above Repeat TFT tomorrow Acute systolic CHF - leg edema, elevated BNP, clear lungs. R sided HF. CXR + cardiomegaly per echo above c/w lasix low salt diet I/O daily weight will need ACEI, when euvolemic will need life vest at dc small pericardial effusion echo reviewed above Qtc Prolongation [id number] monitor, avoid prolonging meds Hyperbilirubinemia -Elevated TB, alk phos, and INR noted on routine labs possibly 2/2 hepatic congestion 2/2 CHF RUQ US reviewed above trend LFTs Normocytic normochromic Anemia likely 2/2 to chronic disease -No active signs of bleeding currently; H/H baseline for pt -f/u iron studies -B12, folate FEN: not indicated currently replete prn low Na diet PPX: DVT - SCDs, ambulation GI - Continue home ppi Full Code Dispo: Telemetry monitoring given significant Qtc elongation -Elopement precautions as patient has eloped on multiple occasions previously -Discussed need to stay for further evaluation of his thyroid and pericardial effusion given his symptoms. Visit type - Emergency Visit Emergency Visit: Yes ED Registration Date: 09/12/18 Care time: The patient presented to the Emergency Department on the above date and was hospitalized for further evaluation of their emergent condition. - New Patient This patient is new to me today: Yes Date on this admission: 09/13/18 - Critical Care Critical Care patient: No
--- NOTE | 2018-09-13 15:17 | EKG ---
Test Reason : Blood Pressure : / mmHG Vent. Rate : 106 BPM Atrial Rate : 106 BPM P-R Int : 178 ms QRS Dur : 148 ms QT Int : 380 ms P-R-T Axes : 071 162 047 degrees QTc Int : 504 ms SINUS TACHYCARDIA POSSIBLE LEFT ATRIAL ENLARGEMENT RIGHT AXIS DEVIATION LEFT BUNDLE BRANCH BLOCK ABNORMAL ECG WHEN COMPARED WITH ECG OF 12-SEP-2018 07:13, QUESTIONABLE CHANGE IN QRS AXIS QT HAS SHORTENED Confirmed by BRE MCDONNELL, SRAVANTHI ([id number]) on 09/13/2018 3:17:29 PM Referred By: Confirmed By:SRAVANTHI DÍAZ MD
[2018-09-13] MEDS: LORATADINE 10 MG TABLET PO SCH (15:24)
--- NOTE | 2018-09-13 18:10 | PN ---
Teaching Attending Note Name of Resident: Carlos Cm ATTENDING PHYSICIAN STATEMENT I saw and evaluated the patient. I reviewed the resident's note and discussed the case with the resident. I agree with the resident's findings and plan as documented. SUBJECTIVE: declined interview and exam. ASSESSMENT AND PLAN: 32 y/o man with h/o hyperthyroidism/grave's , Epilepsy, personality problems, who presented with CP. he was found to have A 1-Thyrotoxicosis: sx improved - cont propranolol and methimazole - d/w Dr. Berg. - tele reviewed. - records still pending. ? received IV dye 2- Acute systolic heart failure. echo reviewed and case was d/w Dr. Aguirre - cont lasix - will need ACEI, when euvolemic - need life vest at dc. to be arranged 3- Small pericardial effusion. 4- Hepatic congestion with transaminitis 5- normocytic anemia : likely de to thyroid disease. - iron studies nad B12/flate 6- DVT PX: will use SCDs. Ambulatory, walking through the hallway. OC
[2018-09-13] MEDS ORDERED: PT OWN MED DRAWER 7, Y5N ONE (19:11)
[2018-09-14 04:10] LABS: SERUM IRON SATURATION 10 % (15-55); TOTAL IRON BINDING CAPACITY 266 ug/dL (250-450); UIBC 240 ug/dL (111-343)
[2018-09-14] MEDS: METHIMAZOLE 10 MG TABLET (FP) PO SCH (05:33)
[2018-09-14 07:25] LABS: BASO % 0.3 % (0-2.0); HEMATOCRIT 34.2 % (35.4-49); HEMOGLOBIN 11.6 GM/dL (11.7-16.9); LYMPH % 44.5 % (8-40); MCHC 33.8 g/dl (32.0-35.9); MEAN CELL VOLUME 85.9 fl (80-96); MEAN PLT VOLUME 8.7 fl (7.5-11.1); MONO % 10.5 % (3.8-10.2); NEUT % 41.7 % (42.8-82.8); PLATELET COUNT 177 K/MM3 (134-434); RBC 3.98 M/mm3 (4.00-5.60); RDW 14.9 % (11.9-15.9); WHITE BLOOD COUNT 5.3 K/mm3 (4.0-10.0)
[2018-09-14 08:09] LABS: INR 1.41 (0.83-1.09); PROTHROMBIN TIME (PATIENT) 16.7 SEC (9.7-13.0)
[2018-09-14] MEDS: LORATADINE 10 MG TABLET PO SCH (09:35)
[2018-09-14] MEDS: PANTOPRAZOLE 20 MG TABLET (FP) PO SCH (09:35)
[2018-09-14] MEDS: FUROSEMIDE 40 MG/4 ML INJECTABLE VIAL IVPUSH SCH (09:35)
--- NOTE | 2018-09-14 09:59 | PN ---
Addendum entered and electronically signed by Kieran Couch, 11:35: spoke w/ [employer] [phone]. the are able to set up life vests 7 days a week they will reach out to [facility] for availability to come and set up life vest. may be able to come today or jeannette even. Original Note: Physical Exam: SUBJECTIVE: Patient seen and examined at bedside. no complaints. denies fever, cp, sob, palpitations, n/v/d, urinary sxs pt wants regular diet OBJECTIVE: Vital Signs Period Temp Pulse Resp BP Sys/Hicks Pulse Ox Last 24 Hr 97.5 F-98.4 F 74-97 18-22 109-122/65-89 97 GENERAL: NAD, awake, alert, and fully oriented, thin appearing HEENT: NC/AT, no scleral injections noted, EOMI, KRANTHI, sclera anicteric, MMM NECK: no JVD, no lymphadenopathy LUNGS: CTAB HEART: RRR, normal S1 and S2 without murmur, no rubs appreciated. ABDOMEN: Soft, Nt/ND, normoactive bowel sounds, no guarding, no hepatomegaly appreciated MUSCULOSKELETAL: No CVA tenderness. EXTREMITIES: 2+ distal pulses throughout, warm, well-perfused. No calf tenderness. 1-2+ nonpitting edema noted in b/l lower extremities, improving NEUROLOGICAL: parachute marker II-XII intact. Strength 5/5 throughout all upper and lower extremity [place]. Sensation intact throughout Biceps reflex 2/4, patellar reflex 3/4, Normal speech. Normal gait. No resting or essential tremor noted PSYCHIATRIC: Cooperative. Good eye contact. SKIN: Warm, dry, no rashes noted Laboratory Results - last 24 hr 09/13/18 09/13/18 09/14/18 07:11 11:10 06:45 WBC 5.3 RBC 3.98 L Hgb 11.6 L Hct 34.2 L MCV 85.9 MCH 29.0 MCHC 33.8 RDW 14.9 Plt Count 177 MPV 8.7 Absolute Neuts (auto) 2.2 Neutrophils % 41.7 L D Lymphocytes % 44.5 H D Monocytes % 10.5 H Eosinophils % 3.0 D Basophils % 0.3 Nucleated RBC % 0 PT with INR INR Iron 26 L TIBC 266 Iron Saturation 10 L Transferrin 210 Vitamin B12 TSH Free T4 U Random Total Protein 7.1 Urine Creatinine 16.0 L Protein/Creatinin Ratio 0.440 09/14/18 09/14/18 09/14/18 06:45 06:45 06:45 WBC RBC Hgb Hct MCV MCH MCHC RDW Plt Count MPV Absolute Neuts (auto) Neutrophils % Lymphocytes % Monocytes % Eosinophils % Basophils % Nucleated RBC % PT with INR 16.70 H INR 1.41 H Iron TIBC Iron Saturation Transferrin Vitamin B12 511 TSH 0.01 L Free T4 1.55 H U Random Total Protein Urine Creatinine Protein/Creatinin Ratio Active Medications Generic Name Dose Route Start Last Admin Trade Name Freq PRN Reason Stop Dose Admin Furosemide 40 mg 09/12/18 17:00 09/14/18 09:35 Lasix Injection - IVPUSH 40 mg DAILY YAQUELIN Administration Loratadine 10 mg 09/13/18 14:45 09/14/18 09:35 Claritin - PO 10 mg DAILY YAQUELIN Administration Methimazole 10 mg 09/12/18 19:00 09/14/18 05:33 Tapazole - PO 10 mg TID YAQUELIN Administration Pantoprazole Sodium 20 mg 09/12/18 10:45 09/14/18 09:35 Protonix - PO 20 mg DAILY YAQUELIN Administration Propranolol HCl 10 mg 09/12/18 15:00 09/13/18 12:37 Inderal - PO 10 mg Q6HPO YAQUELIN Administration Echo 2015: nl lv, nl rv, no sig valve path; it was remarked that apical inferior area not well seen ECG: sinus tach, 1st degr AVB. nonspecific IVCD very wide. far right QRS axis-- all new vs 01/31. (QRS wider and axis shifted more to right vs yesterday's ecg from outside ER) CXR: enlarged heart--NO CHANGE VS 01/31. clear lungs/pleura [id number] US/ABDOMEN US -LIMITED Evaluate for biliary tree pathology. Upper abdomen ultrasound. The liver measures 18 cm in sagittal length with a slightly dense and coarse echotexture. A small amount of free fluid/ascites is present in the right upper quadrant. The gallbladder is adequately distended measuring 5.2 cm in sagittal length without gross intraluminal stones. There is significant diffuse thickening of its wall measuring at these 6 mm on the sagittal images and measuring up to 1.2 cm in thickness on the transverse images. A small amount of pericholecystic free fluid is present no intra or extrahepatic bile duct dilatation is seen. The right and left kidney measured 12.4 and 10.7 cm , respectively. Both kidneys appear unremarkable. The spleen measures 10.9 x 5.2 cm in sagittal and transverse dimension with a homogeneous echotexture. A small amount of free fluid is present in the left upper quadrant. Visualized portion of the pancreas appears unremarkable. Visualized portion of the proximal abdominal aorta and inferior vena cava appear unremarkable. Normal flow in the main portal vein. Images of the lower quadrants were not obtained to evaluate for free fluid/ ascites IMPRESSION: Borderline hepatomegaly with mild fatty infiltration versus hepatocellular disease. Adequately distended gallbladder with significant diffuse thickening of its wall and without gross intraluminal stones. Correlate clinically to rule out acalculous cholecystitis. There is a small amount of free fluid/ascites in the right and left upper quadrant as well as in the pericholecystic region. Both kidneys appear unremarkable. Reported By: Mary Quevedo MD 09/12/18 8833 Interpretation Summary The left ventricle is moderately dilated. There is severe global hypokinesis of the left ventricle. Ejection Fraction = 15-20%. The right ventricle is mildly dilated. The right ventricular systolic function is mildly reduced. The left atrium is moderately dilated. The right atrium is mildly dilated. There is mild mitral regurgitation. There is mild tricuspid regurgitation. Right ventricular systolic pressure is normal. 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 pt has CT report which was w/ iodine contrast increase Methimazole 10 to 15mg TID, will need to be titrated down as outpt Propranolol 10 mg Q6H -Cardiac monitoring -endo consulted, Dr. Berg free T4 trending down 2.5...1.5 Acute systolic CHF - leg edema, elevated BNP, clear lungs. R sided HF. CXR + cardiomegaly - improving per echo above switch lasix IV to PO jeannette pt refuses low salt diet I/O daily weight start lisinopril 2.5mg qd jeannette will need life vest at [place] small pericardial effusion echo reviewed above Qtc Prolongation [id number] monitor, avoid prolonging meds Hyperbilirubinemia -Elevated TB, alk phos, and INR noted on routine labs possibly 2/2 hepatic congestion 2/2 CHF RUQ US reviewed above trend LFTs Normocytic normochromic Anemia likely 2/2 to chronic disease -No active signs of bleeding currently; H/H baseline for pt -f/u iron studies -B12 nl -f/u folate FEN: not indicated currently replete prn Regular diet, pt refuses low salt diet PPX: DVT - SCDs, ambulation GI - Continue home ppi Full Code Dispo: Telemetry monitoring given significant Qtc elongation Visit type - Emergency Visit Emergency Visit: Yes ED Registration Date: 09/12/18 Care time: The patient presented to the Emergency Department on the above date and was hospitalized for further evaluation of their emergent condition. - New Patient This patient is new to me today: Yes Date on this admission: 09/14/18 - Critical Care Critical Care patient: No
--- NOTE | 2018-09-14 10:29 | PN ---
Progress Note, Physician History of Present Illness: No CV complaints Dyspnea improving Tele: NSR, NSVT on 09/14 - Current Medication List Current Medications: Active Medications Furosemide (Lasix Injection -) 40 mg IVPUSH DAILY [facility] Last Admin: 09/14/18 09:35 Dose: 40 mg Loratadine (Claritin -) 10 mg PO DAILY [facility] Last Admin: 09/14/18 09:35 Dose: 10 mg Methimazole (Tapazole -) 10 mg PO TID [facility] Last Admin: 09/14/18 05:33 Dose: 10 mg Pantoprazole Sodium (Protonix -) 20 mg PO DAILY [facility] Last Admin: 09/14/18 09:35 Dose: 20 mg Propranolol HCl (Inderal -) 10 mg PO Q6HPO [facility] Last Admin: 09/13/18 12:37 Dose: 10 mg - Objective Vital Signs: Vital Signs Temperature 98 F 09/14/18 10:00 Pulse Rate 99 H 09/14/18 10:00 Respiratory Rate 18 09/14/18 10:00 Blood Pressure 109/67 09/14/18 10:00 O2 Sat by Pulse Oximetry (%) 98 09/14/18 09:00 Constitutional: Yes: No Distress, Calm Cardiovascular: Yes: Regular Rate and Rhythm Respiratory: Yes: CTA Bilaterally Edema: No Labs: CBC, BMP 09/14/18 06:45 09/13/18 07:11 INR, PTT INR 1.41 (0.83-1.09) H 09/14/18 06:45 Assessment/Plan chest pain, cardiomegaly clinical evidence of right heart failure and congestive hepatopathy: -Echo with severe LV dysfunction (LVEF 15-20%). -ECG markedly abnormal suspect due to underlying cardiomyopathy (very wide QRS with far right axis)--? related to chronic uncontrolled hyperthyroidism -BNP 2700 (was undetectable here in 2015). + S3. + JVD. no hepatomegaly or pulsatile liver appreciated. -cont IV Lasix 40mg daily, would replete Mg (1.5) -Continue Lisinopril 2.5mg daily grave's dz, hyperthyroidism: -TSH suppressed here -signif wt loss -per hospitalist anemia, mild: -per hospitalist
--- NOTE | 2018-09-14 11:39 | PN ---
Teaching Attending Note Name of Resident: Kieran Couch ATTENDING PHYSICIAN STATEMENT I saw and evaluated the patient. I reviewed the resident's note and discussed the case with the resident. I agree with the resident's findings and plan as documented. SUBJECTIVE: No fever or chills. NO CP, no palpitations. No SOB OBJECTIVE: NAD CV: RRR Lungs: CTAB Ext : 1+ edema on LE , improved form before. Abd: soft, ND, NT, decreased abd wall edema A/P : 32 y/o man with h/o hyperthyroidism/grave's , Epilepsy, personality problems, who presented with CP. he was found to have Thyrotoxicosis and acute systolic heart failure 1-Thyrotoxicosis: sx improved - cont propranolol and increase methimazole to 15 TID due to the IV dye he had 09/11 in [facility] ( has CT report with him) - tele reviewed. sinus tahcy episodes 2- New onset Acute systolic heart failure. - cont lasix - will need ACEI, when close to euvolemia , probably tomorrow - need life vest at [place]. will call company for update - refused low salt diet. 3- Small pericardial effusion. 4- Hepatic congestion with transaminitis 5- normocytic anemia : likely de to thyroid disease. - iron studies are pending 6- DVT PX: will use SCDs. Ambulatory HLOC
[2018-09-14 11:52] LABS: ALBUMIN 3.2 g/dl (3.4-5.0); BILIRUBIN,TOTAL 0.7 mg/dL (0.2-1); CALCIUM 7.8 mg/dL (8.5-10.1); CREATININE 0.8 mg/dL (0.55-1.3); MAGNESIUM 1.5 mg/dL (1.8-2.4); PHOSPHOROUS 3.5 mg/dL (2.5-4.9); POTASSIUM 3.6 mmol/L (3.5-5.1); TOT PROT 5.8 g/dl (6.4-8.2)
[2018-09-14] MEDS ORDERED: MAGNESIUM SULF 50% (8.12 MEQ/2 ML-1 GM VIAL) IVPB ONE (12:09)
--- NOTE | 2018-09-14 12:13 | PN ---
Progress Note (short form) - Note Progress Note: Feels better No Complaints Vital Signs Period Temp Pulse Resp BP Sys/Hicks Pulse Ox Last 24 Hr 97.5 F-98.2 F 74-99 18-20 109-122/65-89 97-98 PE: AOx3 Neck: Supple, No JVD HEENT: EOMI Lungs: CTA CVS: S1S2 Abd: Benign Ext: +Edema Neuro: No focal deficit CMP Sodium 144 mmol/L (136-145) 09/14/18 06:45 Potassium 3.6 mmol/L (3.5-5.1) 09/14/18 06:45 Chloride 108 mmol/L (98-107) H 09/14/18 06:45 Carbon Dioxide 28 mmol/L (21-32) 09/14/18 06:45 Anion Gap 8 MMOL/L (8-16) 09/14/18 06:45 BUN 20 mg/dL (7-18) H 09/14/18 06:45 Creatinine 0.8 mg/dL (0.55-1.3) 09/14/18 06:45 Est GFR (CKD-EPI)AfAm 135.08 09/14/18 06:45 Est GFR (CKD-EPI)NonAf 116.55 09/14/18 06:45 Random Glucose 106 mg/dL (74-106) 09/14/18 06:45 Calcium 7.8 mg/dL (8.5-10.1) L 09/14/18 06:45 Phosphorus 3.5 mg/dL (2.5-4.9) 09/14/18 06:45 Magnesium 1.5 mg/dL (1.8-2.4) L 09/14/18 06:45 Iron 26 ug/dL (38-169) L 09/13/18 07:11 TIBC 266 ug/dL (250-450) 09/13/18 07:11 Iron Saturation 10 % (15-55) L 09/13/18 07:11 Transferrin 210 mg/dL (200-370) 09/13/18 07:11 Ferritin 43.3 ng/ml (8-388) 09/14/18 06:45 Total Bilirubin 0.7 mg/dL (0.2-1) 09/14/18 06:45 AST 21 U/L (15-37) 09/14/18 06:45 ALT 16 U/L (13-61) 09/14/18 06:45 Alkaline Phosphatase 183 U/L (45-117) H 09/14/18 06:45 Creatine Kinase 188 U/L (26-308) 09/12/18 06:30 Creatine Kinase Index 0.7 % (0.0-5.0) 09/12/18 06:30 CK-MB (CK-2) 1.5 ng/mL (0.5-3.6) 09/12/18 06:30 Troponin I 0.03 ng/ml (0.00-0.05) 09/12/18 18:15 B-Natriuretic Peptide 2799.2 pg/ml (5-125) H 09/12/18 06:30 Total Protein 5.8 g/dl (6.4-8.2) L 09/14/18 06:45 Albumin 3.2 g/dl (3.4-5.0) L 09/14/18 06:45 Vitamin B12 511 pg/ml (193-986) 09/14/18 06:45 Serum Folate 19 ng/mL (3.1-17.5) H 09/14/18 06:45 TSH 0.01 uIU/ml (0.358-3.74) L 09/14/18 06:45 Free T4 1.55 ng/dl (0.76-1.16) H 09/14/18 06:45 Current Medications Generic Name Dose Route Start Last Admin Trade Name Freq PRN Reason Stop Dose Admin Furosemide 40 mg 09/15/18 10:00 Lasix - PO DAILY YAQUELIN Lisinopril 2.5 mg 09/15/18 10:00 Prinivil PO DAILY YAQUELIN Loratadine 10 mg 09/13/18 14:45 09/14/18 09:35 Claritin - PO 10 mg DAILY YAQUELIN Administration Magnesium Sulfate 2 gm 09/14/18 12:09 Magnesium Sulfate IVPB 09/14/18 12:10 ONCE ONE Methimazole 15 mg 09/14/18 10:30 Tapazole - PO TID YAQUELIN Pantoprazole Sodium 20 mg 09/12/18 10:45 09/14/18 09:35 Protonix - PO 20 mg DAILY YAQUELIN Administration Propranolol HCl 10 mg 09/12/18 15:00 09/14/18 11:39 Inderal - PO 10 mg Q6HPO YAQUELIN Administration AP: Hyperthyroidism: FT4 1.55 down from 2.5 Methimazole increase to 15mg TID Propranolol 10 mg Q6H Repeat TFT in 2 to 3 days In view of CT with Contrast will increase dose of Methimazole if FT4 is not improving. CHF: Cardiology following ? Pericardial effusion Will f/u
[2018-09-14] MEDS: METHIMAZOLE 5 MG TABLET (FP) PO SCH ×2 (13:51→22:35)
[2018-09-14 14:36] VITALS: BMI 23.6
[2018-09-14] MEDS ORDERED: PT OWN MED DRAWER 7, Y5N ONE (17:33)
[2018-09-15 06:13] LABS: BASO % 0.5 % (0-2.0); EOS % 3.6 % (0-4.5); HEMATOCRIT 34.5 % (35.4-49); HEMOGLOBIN 11.5 GM/dL (11.7-16.9); LYMPH % 48.6 % (8-40); MCH 28.6 pg (25.7-33.7); MCHC 33.3 g/dl (32.0-35.9); MEAN CELL VOLUME 85.7 fl (80-96); MEAN PLT VOLUME 8.4 fl (7.5-11.1); MONO % 9.1 % (3.8-10.2); NEUT % 38.2 % (42.8-82.8); PLATELET COUNT 170 K/MM3 (134-434); RBC 4.03 M/mm3 (4.00-5.60); RDW 15.1 % (11.9-15.9); WHITE BLOOD COUNT 5.5 K/mm3 (4.0-10.0)
[2018-09-15] MEDS: METHIMAZOLE 5 MG TABLET (FP) PO SCH ×3 (06:30→22:50)
[2018-09-15 06:37] LABS: BILIRUBIN,TOTAL 0.7 mg/dL (0.2-1); CALCIUM 8.1 mg/dL (8.5-10.1); CREATININE 0.7 mg/dL (0.55-1.3); MAGNESIUM 1.6 mg/dL (1.8-2.4); PHOSPHOROUS 3.9 mg/dL (2.5-4.9); POTASSIUM 3.4 mmol/L (3.5-5.1); TOT PROT 5.3 g/dl (6.4-8.2)
[2018-09-15] MEDS ORDERED: MAGNESIUM SULF 50% (8.12 MEQ/2 ML-1 GM VIAL) IVPB ONE ×2 (06:38→07:44)
[2018-09-15] MEDS ORDERED: POTASSIUM CHLORIDE TABS 20 MEQ TABLET.ER (FP) PO ONE ×2 (06:38→09:00)
[2018-09-15] MEDS ORDERED: PT OWN MED DRAWER 7, Y5N ONE ×4 (06:44→22:14)
[2018-09-15] MEDS: LORATADINE 10 MG TABLET PO SCH (10:00)
[2018-09-15] MEDS: PANTOPRAZOLE 20 MG TABLET (FP) PO SCH (10:00)
[2018-09-15] MEDS: LISINOPRIL 5 MG TABLET (FP) PO SCH (10:00)
[2018-09-15] MEDS: FUROSEMIDE 40 MG TABLET (FP) PO SCH (10:01)
[2018-09-15] MEDS: POTASSIUM CHLORIDE TABS 20 MEQ TABLET.ER (FP) PO SCH (10:02)
--- NOTE | 2018-09-15 10:32 | PN ---
Progress Note, Physician History of Present Illness: No complaints Breathing improved Tele:NSR with PVCs - Current Medication List Current Medications: Active Medications Furosemide (Lasix -) 40 mg PO DAILY [facility] Last Admin: 09/15/18 10:01 Dose: 40 mg Lisinopril (Prinivil) 2.5 mg PO DAILY [facility] Last Admin: 09/15/18 10:00 Dose: 2.5 mg Loratadine (Claritin -) 10 mg PO DAILY [facility] Last Admin: 09/15/18 10:00 Dose: 10 mg Methimazole (Tapazole -) 15 mg PO TID [facility] Last Admin: 09/15/18 06:30 Dose: 15 mg Pantoprazole Sodium (Protonix -) 20 mg PO DAILY [facility] Last Admin: 09/15/18 10:00 Dose: 20 mg Potassium Chloride (K-Dur -) 20 meq PO DAILY [facility] Last Admin: 09/15/18 10:02 Dose: 20 meq Propranolol HCl (Inderal -) 10 mg PO Q6HPO [facility] Last Admin: 09/15/18 06:29 Dose: Not Given - Objective Vital Signs: Vital Signs Temperature 98.3 F 09/14/18 18:00 Pulse Rate 104 H 09/15/18 09:12 Respiratory Rate 18 09/15/18 09:12 Blood Pressure 95/77 09/15/18 09:12 O2 Sat by Pulse Oximetry (%) 98 09/15/18 09:12 Constitutional: Yes: No Distress, Calm Eyes: Yes: WNL HENT: Yes: WNL Neck: Yes: WNL Cardiovascular: Yes: Regular Rate and Rhythm, S3 Respiratory: Yes: CTA Bilaterally Edema: LLE: Trace, RLE: Trace Labs: CBC, BMP 09/15/18 05:30 09/15/18 05:30 INR, PTT INR 1.41 (0.83-1.09) H 09/14/18 06:45 Assessment/Plan chest pain, cardiomegaly clinical evidence of right heart failure and congestive hepatopathy: -Echo with severe LV dysfunction (LVEF 15-20%). -ECG markedly abnormal suspect due to underlying cardiomyopathy (very wide QRS with far right axis)--? related to chronic uncontrolled hyperthyroidism -BNP 2700 (was undetectable here in 2014). + S3. + JVD. no hepatomegaly or pulsatile liver appreciated. -6/2: Appears more euvolemic today, some LE edema. -cont IV Lasix 40mg daily, would replete Mg (1.6) and K aggressively -Continue Lisinopril 2.5mg daily -Awaiting LifeVest grave's dz, hyperthyroidism: -TSH suppressed here -signif wt loss -per hospitalist anemia, mild: -per hospitalist
--- NOTE | 2018-09-15 13:57 | PN ---
Progress Note (short form) - Note Progress Note: Feels better No Complaints Vital Signs Period Temp Pulse Resp BP Sys/Hicks Pulse Ox Last 24 Hr 98.3 F-98.4 F 94-107 18-20 90-134/61-77 98-98 PE: AOx3 Neck: Supple, No JVD HEENT: EOMI Lungs: CTA CVS: S1S2 Abd: Benign Ext: +Edema Neuro: No focal deficit CMP Sodium 140 mmol/L (136-145) 09/15/18 05:30 Potassium 3.4 mmol/L (3.5-5.1) L 09/15/18 05:30 Chloride 105 mmol/L (98-107) 09/15/18 05:30 Carbon Dioxide 28 mmol/L (21-32) 09/15/18 05:30 Anion Gap 7 MMOL/L (8-16) L 09/15/18 05:30 BUN 14 mg/dL (7-18) 09/15/18 05:30 Creatinine 0.7 mg/dL (0.55-1.3) 09/15/18 05:30 Est GFR (CKD-EPI)AfAm 142.70 09/15/18 05:30 Est GFR (CKD-EPI)NonAf 123.13 09/15/18 05:30 Random Glucose 105 mg/dL (74-106) 09/15/18 05:30 Calcium 8.1 mg/dL (8.5-10.1) L 09/15/18 05:30 Phosphorus 3.9 mg/dL (2.5-4.9) 09/15/18 05:30 Magnesium 1.6 mg/dL (1.8-2.4) L 09/15/18 05:30 Iron 26 ug/dL (38-169) L 09/13/18 07:11 TIBC 266 ug/dL (250-450) 09/13/18 07:11 Iron Saturation 10 % (15-55) L 09/13/18 07:11 Transferrin 210 mg/dL (200-370) 09/13/18 07:11 Ferritin 43.3 ng/ml (8-388) 09/14/18 06:45 Total Bilirubin 0.7 mg/dL (0.2-1) 09/15/18 05:30 AST 23 U/L (15-37) 09/15/18 05:30 ALT 15 U/L (13-61) 09/15/18 05:30 Alkaline Phosphatase 159 U/L (45-117) H 09/15/18 05:30 Creatine Kinase 188 U/L (26-308) 09/12/18 06:30 Creatine Kinase Index 0.7 % (0.0-5.0) 09/12/18 06:30 CK-MB (CK-2) 1.5 ng/mL (0.5-3.6) 09/12/18 06:30 Troponin I 0.03 ng/ml (0.00-0.05) 09/12/18 18:15 B-Natriuretic Peptide 2799.2 pg/ml (5-125) H 09/12/18 06:30 Total Protein 5.3 g/dl (6.4-8.2) L 09/15/18 05:30 Albumin 3.0 g/dl (3.4-5.0) L 09/15/18 05:30 Vitamin B12 511 pg/ml (193-986) 09/14/18 06:45 Serum Folate 19 ng/mL (3.1-17.5) H 09/14/18 06:45 TSH 0.01 uIU/ml (0.358-3.74) L 09/14/18 06:45 Free T4 1.55 ng/dl (0.76-1.16) H 09/14/18 06:45 Free T3 2.9 pg/ml (2.0-4.4) 09/14/18 06:45 Current Medications Generic Name Dose Route Start Last Admin Trade Name Baoq PRN Reason Stop Dose Admin Furosemide 40 mg 09/15/18 10:00 09/15/18 10:01 Lasix - PO 40 mg DAILY YAQUELIN Administration Lisinopril 2.5 mg 09/15/18 10:00 09/15/18 10:00 Prinivil PO 2.5 mg DAILY YAQUELIN Administration Loratadine 10 mg 09/13/18 14:45 09/15/18 10:00 Claritin - PO 10 mg DAILY YAQUELIN Administration Methimazole 15 mg 09/14/18 10:30 09/15/18 06:30 Tapazole - PO 15 mg TID YAQUELIN Administration Pantoprazole Sodium 20 mg 09/12/18 10:45 09/15/18 10:00 Protonix - PO 20 mg DAILY YAQUELIN Administration Potassium Chloride 20 meq 09/15/18 10:00 09/15/18 10:02 K-Dur - PO 20 meq DAILY YAQUELIN Administration Propranolol HCl 10 mg 09/12/18 15:00 09/15/18 10:32 Inderal - PO 10 mg Q6HPO YAQUELIN Administration Hyperthyroidism: FT4 1.55 down from 2.5 Methimazole increased to 15mg TID Propranolol 10 mg Q6H Repeat FT4 tomorrow. CHF: Cardiology following ? Pericardial effusion Will f/u
--- NOTE | 2018-09-15 14:24 | PN ---
Progress Note (short form) - Note Progress Note: Subjective: no SOB , no fever ro chills. No BLACK . Objective: Vital Signs: Last Vital Signs Temp Pulse Resp BP Pulse Ox 98.3 F 104 H 18 95/77 98 09/14/18 18:00 09/15/18 09:12 09/15/18 09:12 09/15/18 09:12 09/15/18 09:12 Laboratory Results - last 24 hr 09/14/18 09/15/18 09/15/18 06:45 05:30 05:30 WBC 5.5 RBC 4.03 Hgb 11.5 L Hct 34.5 L MCV 85.7 MCH 28.6 MCHC 33.3 RDW 15.1 Plt Count 170 MPV 8.4 Absolute Neuts (auto) 2.1 Neutrophils % 38.2 L Lymphocytes % 48.6 H Monocytes % 9.1 Eosinophils % 3.6 Basophils % 0.5 Nucleated RBC % 0 Sodium 140 Potassium 3.4 L Chloride 105 Carbon Dioxide 28 Anion Gap 7 L BUN 14 Creatinine 0.7 Est GFR (CKD-EPI)AfAm 142.70 Est GFR (CKD-EPI)NonAf 123.13 Random Glucose 105 Calcium 8.1 L Phosphorus 3.9 Magnesium 1.6 L Total Bilirubin 0.7 AST 23 ALT 15 Alkaline Phosphatase 159 H Total Protein 5.3 L Albumin 3.0 L Free T3 2.9 Physical Exam: NAD CV: RRR Lungs: CTAB Ext: 1+ edema on LE , improved form before. Abd: soft, ND, NT, decreased abd wall edema A/P : 32 y/o man with h/o hyperthyroidism/grave's , Epilepsy, personality problems, who presented with CP. he was found to have Thyrotoxicosis and acute systolic heart failure 1-Thyrotoxicosis: sx improved - cont propranolol and methimazole - tele reviewed. No events 2- New onset Acute systolic heart failure. - cont lasix - lisinopril - [employer] was called, to fit patient today - refuses low salt diet 3- Small pericardial effusion. 4- Hepatic congestion with transaminitis 5- normocytic anemia : likely de to thyroid disease. - iron studies reviewed. 6- DVT PX: SCDs. add heparin HLOC Visit type - Emergency Visit Emergency Visit: Yes ED Registration Date: 09/12/18 Care time: The patient presented to the Emergency Department on the above date and was hospitalized for further evaluation of their emergent condition. - New Patient This patient is new to me today: No - Critical Care Critical Care patient: No
[2018-09-15] MEDS: HEPARIN NA (PORCINE) 5,000 UNITS/ML 1ML VIAL SQ SCH (22:50)
[2018-09-16] MEDS ORDERED: PT OWN MED DRAWER 7, Y5N ONE ×2 (05:54→09:18)
[2018-09-16] MEDS: METHIMAZOLE 5 MG TABLET (FP) PO SCH (06:57)
[2018-09-16] MEDS: HEPARIN NA (PORCINE) 5,000 UNITS/ML 1ML VIAL SQ SCH (06:57)
[2018-09-16] MEDS: PANTOPRAZOLE 20 MG TABLET (FP) PO SCH ×2 (07:39→09:26)
[2018-09-16 07:42] LABS: CALCIUM 9.1 mg/dL (8.5-10.1); MAGNESIUM 1.8 mg/dL (1.8-2.4); PHOSPHOROUS 3.7 mg/dL (2.5-4.9); POTASSIUM 4.7 mmol/L (3.5-5.1)
--- NOTE | 2018-09-16 08:28 | PN ---
Progress Note (short form) - Note Progress Note: Feels better No Complaints Vital Signs Period Temp Pulse Resp BP Sys/Hicks Pulse Ox Last 24 Hr 97.4 F-99 F 95-107 18-20 95-146/40-82 98-99 PE: AOx3 Neck: Supple, No JVD HEENT: EOMI Lungs: CTA CVS: S1S2 Abd: Benign Ext: +Edema Neuro: No focal deficit CMP Sodium 138 mmol/L (136-145) 09/16/18 06:36 Potassium 4.7 mmol/L (3.5-5.1) 09/16/18 06:36 Chloride 102 mmol/L (98-107) 09/16/18 06:36 Carbon Dioxide 31 mmol/L (21-32) 09/16/18 06:36 Anion Gap 5 MMOL/L (8-16) L 09/16/18 06:36 BUN 18 mg/dL (7-18) 09/16/18 06:36 Creatinine 1.0 mg/dL (0.55-1.3) 09/16/18 06:36 Est GFR (CKD-EPI)AfAm 113.31 09/16/18 06:36 Est GFR (CKD-EPI)NonAf 97.76 09/16/18 06:36 Random Glucose 98 mg/dL (74-106) 09/16/18 06:36 Calcium 9.1 mg/dL (8.5-10.1) 09/16/18 06:36 Phosphorus 3.7 mg/dL (2.5-4.9) 09/16/18 06:36 Magnesium 1.8 mg/dL (1.8-2.4) 09/16/18 06:36 Iron 26 ug/dL (38-169) L 09/13/18 07:11 TIBC 266 ug/dL (250-450) 09/13/18 07:11 Iron Saturation 10 % (15-55) L 09/13/18 07:11 Transferrin 210 mg/dL (200-370) 09/13/18 07:11 Ferritin 43.3 ng/ml (8-388) 09/14/18 06:45 Total Bilirubin 0.7 mg/dL (0.2-1) 09/15/18 05:30 AST 23 U/L (15-37) 09/15/18 05:30 ALT 15 U/L (13-61) 09/15/18 05:30 Alkaline Phosphatase 159 U/L (45-117) H 09/15/18 05:30 Creatine Kinase 188 U/L (26-308) 09/12/18 06:30 Creatine Kinase Index 0.7 % (0.0-5.0) 09/12/18 06:30 CK-MB (CK-2) 1.5 ng/mL (0.5-3.6) 09/12/18 06:30 Troponin I 0.03 ng/ml (0.00-0.05) 09/12/18 18:15 B-Natriuretic Peptide 2799.2 pg/ml (5-125) H 09/12/18 06:30 Total Protein 5.3 g/dl (6.4-8.2) L 09/15/18 05:30 Albumin 3.0 g/dl (3.4-5.0) L 09/15/18 05:30 Vitamin B12 511 pg/ml (193-986) 09/14/18 06:45 Serum Folate 19 ng/mL (3.1-17.5) H 09/14/18 06:45 TSH 0.01 uIU/ml (0.358-3.74) L 09/14/18 06:45 Free T4 1.25 ng/dl (0.76-1.16) H 09/16/18 06:36 Free T3 2.9 pg/ml (2.0-4.4) 09/14/18 06:45 Current Medications Generic Name Dose Route Start Last Admin Trade Name Freq PRN Reason Stop Dose Admin Furosemide 40 mg 09/15/18 10:00 09/15/18 10:01 Lasix - PO 40 mg DAILY YAQUELIN Administration Heparin Sodium (Porcine) 5,000 unit 09/15/18 22:00 09/16/18 06:57 Heparin - SQ 5,000 unit TID YAQUELIN Administration Lisinopril 2.5 mg 09/15/18 10:00 09/15/18 10:00 Prinivil PO 2.5 mg DAILY YAQUELIN Administration Loratadine 10 mg 09/13/18 14:45 09/15/18 10:00 Claritin - PO 10 mg DAILY YAQUELIN Administration Methimazole 15 mg 09/14/18 10:30 09/16/18 06:57 Tapazole - PO 15 mg TID YAQUELIN Administration Pantoprazole Sodium 20 mg 09/12/18 10:45 09/16/18 07:39 Protonix - PO 20 mg DAILY YAQUELIN Administration Potassium Chloride 20 meq 09/15/18 10:00 09/15/18 10:02 K-Dur - PO 20 meq DAILY YAQUELIN Administration Propranolol HCl 10 mg 09/12/18 15:00 09/16/18 06:58 Inderal - PO 10 mg Q6HPO YAQUELIN Administration Hyperthyroidism: FT4 1.25 down from 1.55 and 2.5 Decrease Methimazole 20mg BID Propranolol 10 mg Q6H F/u in office in one week after discharge CHF: Cardiology following ? Pericardial effusion Will f/u
[2018-09-16] MEDS ORDERED: MAGNESIUM SULF 50% (8.12 MEQ/2 ML-1 GM VIAL) IVPB ONE (08:44)
--- NOTE | 2018-09-16 09:09 | DS ---
Physical Exam: SUBJECTIVE: Patient seen and examined at bedside. no complaints. denies fever, cp, sob, palpitations, n/v/d, urinary sxs pt wants regular diet OBJECTIVE: Vital Signs Period Temp Pulse Resp BP Sys/Hicks Pulse Ox Last 24 Hr 97.4 F-99 F 95-107 18-20 95-146/40-82 98-99 PHYSICAL EXAM GENERAL: NAD, awake, alert, and fully oriented, thin appearing HEENT: NC/AT, no scleral injections noted, EOMI, KRANTHI, sclera anicteric, MMM NECK: no JVD, no lymphadenopathy LUNGS: CTAB HEART: RRR, normal S1 and S2 without murmur, no rubs appreciated. ABDOMEN: Soft, Nt/ND, normoactive bowel sounds, no guarding, no hepatomegaly appreciated MUSCULOSKELETAL: No CVA tenderness. EXTREMITIES: 2+ distal pulses throughout, warm, well-perfused. No calf tenderness. 1-2+ nonpitting edema noted in b/l lower extremities, improving NEUROLOGICAL: stretcher helper II-XII intact. Strength 5/5 throughout all upper and lower extremity moncada. Sensation intact throughout Biceps reflex 2/4, patellar reflex 3/4, Normal speech. Normal gait. No resting or essential tremor noted PSYCHIATRIC: Cooperative. Good eye contact. SKIN: Warm, dry, no rashes noted LABS Laboratory Results - last 24 hr 09/16/18 06:36 Sodium 138 Potassium 4.7 Chloride 102 Carbon Dioxide 31 Anion Gap 5 L BUN 18 Creatinine 1.0 Est GFR (CKD-EPI)AfAm 113.31 Est GFR (CKD-EPI)NonAf 97.76 Random Glucose 98 Calcium 9.1 Phosphorus 3.7 Magnesium 1.8 Free T4 1.25 H Echo 2015: nl lv, nl rv, no sig valve path; it was remarked that apical inferior area not well seen ECG: sinus tach, 1st degr AVB. nonspecific IVCD very wide. far right QRS axis-- all new vs 01/31. (QRS wider and axis shifted more to right vs yesterday's ecg from outside ER) CXR: enlarged heart--NO CHANGE VS 01/31. clear lungs/pleura [id number] US/ABDOMEN US -LIMITED Evaluate for biliary tree pathology. Upper abdomen ultrasound. The liver measures 18 cm in sagittal length with a slightly dense and coarse echotexture. A small amount of free fluid/ascites is present in the right upper quadrant. The gallbladder is adequately distended measuring 5.2 cm in sagittal length without gross intraluminal stones. There is significant diffuse thickening of its wall measuring at these 6 mm on the sagittal images and measuring up to 1.2 cm in thickness on the transverse images. A small amount of pericholecystic free fluid is present no intra or extrahepatic bile duct dilatation is seen. The right and left kidney measured 12.4 and 10.7 cm , respectively. Both kidneys appear unremarkable. The spleen measures 10.9 x 5.2 cm in sagittal and transverse dimension with a homogeneous echotexture. A small amount of free fluid is present in the left upper quadrant. Visualized portion of the pancreas appears unremarkable. Visualized portion of the proximal abdominal aorta and inferior vena cava appear unremarkable. Normal flow in the main portal vein. Images of the lower quadrants were not obtained to evaluate for free fluid/ ascites IMPRESSION: Borderline hepatomegaly with mild fatty infiltration versus hepatocellular disease. Adequately distended gallbladder with significant diffuse thickening of its wall and without gross intraluminal stones. Correlate clinically to rule out acalculous cholecystitis. There is a small amount of free fluid/ascites in the right and left upper quadrant as well as in the pericholecystic region. Both kidneys appear unremarkable. Reported By: Mary Quevedo MD 09/12/18 1256 Interpretation Summary The left ventricle is moderately dilated. There is severe global hypokinesis of the left ventricle. Ejection Fraction = 15-20%. The right ventricle is mildly dilated. The right ventricular systolic function is mildly reduced. The left atrium is moderately dilated. The right atrium is mildly dilated. There is mild mitral regurgitation. There is mild tricuspid regurgitation. Right ventricular systolic pressure is normal. Trivial pericardial effusion not hemodynamically significant MD Morejon *Francescone 09/13/2018 11:38 AM HOSPITAL COURSE: Date of Admission:09/12/18 HPI 32yo M with significant h/o Grave's disease, epilepsy (not on prophylaxis), and personality disorder who presents today with complaints of diffuse thoracic chest pressure. He also endorsed worsening lower extremity edema to his abdomen within the past day or two. Pt states he was at [facility] yesterday where he was found to have a pericardial effusion. He was discharged with instructions to follow-up with an cross tie tram loader and it service continuity supervisor for his pericardial effusion and hyperthyroidism respectively. Pt states he has never seen an cross tie tram loader before and he had his methimazole dose (25mcg) stopped 2 years prior by his PCP. Pt endorses a significant weight loss of 50lbs within the past 6-8 months, however he goes to the gym regularly. He endorses slight anxiety, palpitations, and difficulty sleeping at night. In addition he notes some slight heat and cold intolerance which has worsened within the past months. Pt denies any blurry vision, headache, lightheadedness, dizziness, cough , shortness of breath, abdominal pain, dysuria, polyuria, hematuria, diarrhea/ constipation, n/v, weakness, tremulousness, numbness. In ED cardiac monitoring was placed showing HR fluctuations between ranges of 100bpm to 130bpm. CXR showed enlarged cardiac silhouetted without effusions and ECG showing sinus tachycardia @108bpm with significantly prolonged QTc (568ms) and ? LBBB. TSH noted to be 0.01; T3 and T4 stat collection being done as of this exam. Date of Discharge: 09/16/18 32 yo M PMH hyperthyroidism, Epilepsy, personality problems, who presented with CP, and found w/ 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 and w/ Acute systolic CHF Admitted for 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 and found with new onset Acute systolic CHF 2/2 Thyrotoxicosis - pt p/w sxs of cp, leg swelling palpitations etc... It was confirmed pt received iodine contrast at prior hospital. endocrine was consulted, Dr Yee and pt was started on Methimazole 15mg TID and Propranolol 10 mg Q6H. pt sxs improved. Methimazole was started to be titrated down in hospital to 20mg BID and pt will cont to titrate down outpt w/ Dr Yee. Propranolol cont at mi. free T4 trending down 2.5...1.5...1.25 Pt noted w/ new onset Acute systolic CHF 2/2 Thyrotoxicosis. echo reviewed above , EF 15-20. pt started on lasix 40qd and lisinopril 2.5mg qd and to cont at mi. pt arranged w/ lifevest prior to dc. pt encouraged to eat low salt diet and check weights and will f/u outpt w/ cardio. Of note, RUQ US reviewed above, was obtained for noted Hyperbilirubinemia and elevated alk phos likely 2/2 hepatic congestion 2/2 CHF. bili has since resolved small pericardial effusion echo reviewed above Qtc Prolongation 568...504 pt should avoid prolonging meds Normocytic normochromic Anemia likely 2/2 to chronic disease/thyroid disease. -No active signs of bleeding currently; H/H has remained at baseline for pt (~11 ) -iron studies: ferritin 43, TIBC 266, iron 26 -B12, folate nl pt stable and ready for dc w/ appropriate f/u Minutes to complete discharge: 38 Discharge Summary Reason For Visit: CHEST PAIN Current Active Problems Abnormal echocardiogram (Acute) Acute systolic heart failure (Acute) Hyperthyroidism (Chronic) Thyrotoxicosis (Chronic) Condition: Stable - Instructions Diet, Activity, Other Instructions: you came in for thyrotoxicosis (hyperthyroid) and were found to have heart failure with ejection fraction of 15-20% due to your thyrotoxicosis ( hyperthyroid) please STOP taking your home metoprolol. please take propanalol 10mg every 6 hours please take methimazole 20mg twice per day and follow up outpatient with Dr Burt to adjust and taper down the dose please take lasix 40mg once a day to help remove excess fluid please take lisinopril 2.5mg once a day to help with your heart and blood pressure please follow up with your primary care physician within 1 week please follow up with it service continuity supervisor Dr Hardin within 1 week to adjust your heart failure meds and check your lifevest please follow up with cross tie tram loader Dr Burt within 1 week if you experience any chest pain, shortness of breath, leg swelling, please call 911 or go to the ER strict low salt diet no strenuous exercises Referrals: freddy newman [Other] - 2 Weeks Reggie Hardin MD [Staff Physician] - 1 Week Matty Yee MD [Staff Physician] - 1 Week Disposition: HOME - Home Medications Comprehensive Discharge Medication List: Ambulatory Orders Omeprazole 20 mg PO DAILY 02/08/18 Furosemide [Lasix -] 40 mg PO DAILY #30 tablet 09/16/18 Lisinopril [Prinivil] 2.5 mg PO DAILY #30 tablet 09/16/18 Methimazole 20 mg PO BID #120 tablet 09/16/18 propRANOLol HCL [Inderal -] 10 mg PO Q6HPO #120 tablet 09/16/18 This patient is new to me today: Yes Date on this admission: 09/16/18 Emergency Visit: Yes ED Registration Date: 09/12/18 Care time: The patient presented to the Emergency Department on the above date and was hospitalized for further evaluation of their emergent condition. Critical Care patient: No - Discharge Referral Referred to [facility] Med [facility] No
[2018-09-16] MEDS: LISINOPRIL 5 MG TABLET (FP) PO SCH (09:24)
[2018-09-16] MEDS: FUROSEMIDE 40 MG TABLET (FP) PO SCH (09:25)
[2018-09-16] MEDS: POTASSIUM CHLORIDE TABS 20 MEQ TABLET.ER (FP) PO SCH (09:25)
[2018-09-16] MEDS: LORATADINE 10 MG TABLET PO SCH (09:25)
[2018-09-16 09:27] VITALS: BP 108/68; PULSE 97; TEMP 98.4
--- NOTE | 2018-09-16 14:21 | PN ---
Teaching Attending Note Name of Resident: Marcelo Chairez ATTENDING PHYSICIAN STATEMENT I saw and evaluated the patient. I reviewed the resident's note and discussed the case with the resident. I agree with the resident's findings and plan as documented. SUBJECTIVE: No fever or chills. Has no BLACK. no SOB. Removed his vest last night and declined cardiac monitoring OBJECTIVE: NAD CV: RRR Lungs: CTAB Ext: No edme aon LE Abd: soft, ND, NT, No edema on Abd wall A/P : 32 y/o man with h/o hyperthyroidism/grave's , Epilepsy, personality problems, who presented with CP. he was found to have Thyrotoxicosis and acute systolic heart failure. 1-Thyrotoxicosis: - cont propranolol and methimazole ( 20 BID per d/w Endo) 2- New onset Acute systolic heart failure. - cont lasix - lisinopril - Life vest at [facility]. patientis not wearing. advised to comply to prevent cardiac arrhythmias and -educated about low salt diet 3- Small pericardial effusion. f/u with card 4- Hepatic congestion with transaminitis 5- normocytic anemia : likely de to thyroid disease. DC home . f/u with PCP , card, and Endo
[2018-09-16] MEDS ORDERED: METHIMAZOLE 5 MG TABLET (FP) PO SCH (22:00)
== END 2018-09-16 13:42 | disposition home or self-care (01) | DRG 424 ==
LOC: JER 03:13 → JERBED 08:32 → J4W 09-13 00:30
PROVIDERS: ADMIT Internal Medicine; ATTEND Internal Medicine
DX: E05.00 Thyrotoxicosis with diffuse goiter without thyrotoxic crisis or storm (principal); I50.21 Acute systolic (congestive) heart failure; E83.42 Hypomagnesemia; I31.3 Pericardial effusion (noninflammatory); R18.8 Other ascites; D63.8 Anemia in other chronic diseases classified elsewhere; I45.81 Long QT syndrome; G40.909 Epilepsy, unspecified, not intractable, without status epilepticus; F60.9 Personality disorder, unspecified; R07.89 Other chest pain; F41.9 Anxiety disorder, unspecified; I44.0 Atrioventricular block, first degree; E80.6 Other disorders of bilirubin metabolism; R74.0 Nonspecific elevation of levels of transaminase and lactic acid dehydrogenase [LDH]
CPT/HCPCS: 36415; 71046-TC-FY; 76705-TC; 80048; 80053; 81003; 82550; 82553; 82570; 82607; 82728; 82746; 83540; 83550; 83735; 83880; 84100; 84156; 84439; 84443; 84466; 84480; 84481; 84484; 85025; 85027; 85610; 93005; 93010; 93306-TC; 99284-25; J1644

== ENCOUNTER 2019-01-09 21:59 | Observation (INO) | payer OTHER ==
[2019-01-09] MEDS ORDERED: ASPIRIN 81 MG CHEWABLE TABLETS PO ONE (23:12)
--- NOTE | 2019-01-09 23:18 | PDOC ---
History of Present Illness - General Chief Complaint: Chest Pain Stated Complaint: CHEST PAIN Time Seen by Provider: 01/09/19 22:49 History Source: Patient, Old Records Exam Limitations: No Limitations - History of Present Illness Initial Comments: 01/09/19 23:25 HISTORY OF PRESENT ILLNESS: 33-year-old male past medical history of Graves' disease, epilepsy, anxiety, heart failure presents emergency department for evaluation of left sided chest pain worsening over the past 3 days. Patient states the pain is a pressure squeezing sensation on the left side of his chest. He denies any shortness of breath, cough. Patient reports an intermittent compliance with his inhibitors and beta blockers due to recent life stressors. Patient reports abdominal bloating and feels is having increased difficulty walking up inclines and stairs. Patient reports one pillow orthopnea denies PND. Patient reports in September of this year was diagnosed with pericardial effusion which she reports had an outpatient echocardiogram is been improved as well as his EF improved from 15% to 25%. No recent travel or sick contacts. PAST MEDICAL HISTORY: Denies past medical history SURGICAL HISTORY: Denies ALLERGIES: No known drug allergies REVIEW OF SYSTEMS General/Constitutional: Denies fever or chills. Denies weakness, weight change. HEENT: Denies change in vision. Denies ear pain or discharge. Denies sore throat. Cardiovascular: see HPI Respiratory: Denies cough, wheezing, or hemoptysis. Gastrointestinal: see HPI Genitourinary: Denies dysuria, frequency, or change in urination. Musculoskeletal: Denies joint or muscle swelling or pain. Denies neck or back pain. Skin and breasts: Denies rash or easy bruising. Neurologic: Denies headache, vertigo, loss of consciousness, or loss of sensation. Psychiatric: Denies depression or anxiety. Endocrine: Denies increased thirst. Denies abnormal weight change. Hematologic/Lymphatic: Denies anemia, easy bleeding, or history of blood clots. Allergic/Immunologic: Denies hives or skin allergy. Denies latex allergy. PHYSICAL EXAM General Appearance: Well-appearing, appropriately dressed. No apparent distress , no intoxication. HEENT: EOMI, PERRLA, normal ENT inspection, normal voice, TMs normal, pharynx normal. No conjunctival pallor. No photophobia, scleral icterus. Neck: Supple. Trachea midline. No tenderness, rigidity, carotid bruit, stridor , lymphadenopathy, or thyromegaly. Respiratory/Chest: Lungs CTAB. No shortness of breath, chest tenderness, respiratory distress, accessory muscle use. Diminished breath sounds. No crackles, rales, rhonchi, stridor, wheezing, dullness Cardiovascular: RRR. S1, S2. No JVD, murmur, bradycardia, tachycardia. Vascular Pulses: Dorsalis-Pedis (R): 2+, Dorsalis-Pedis (L): 2+ Gastrointestinal/Abdominal: Normal bowel sounds. Abdomen soft, non-distended. No tenderness or rebound tenderness. No organomegaly, pulsatile mass, guarding, hernia, hepatomegaly, splenomegaly. No fluid wave noted. Lymphatic: No adenopathy, tenderness. Musculoskeletal/Extremities: Normal inspection. FROM of all extremities, normal capillary refill. Pelvis Stable. No CVA tenderness. No tenderness to extremities, swelling, erythema or deformity. 1+ pedal edema. Integumentary: Appropriate color, dry, warm. No cyanosis, erythema, jaundice or rash Neurologic: junior assistant manager II-XII intact. Fully oriented, alert. Appropriate mood/affect. Motor strength 5/5. No appreciable EOM palsy, facial droop or sensory deficit. 01/09/19 23:26 Past History - Past Medical History Allergies/Adverse Reactions: Allergies Allergy/AdvReac Type Severity Reaction Status Date / Time shellfish derived Allergy Verified 01/09/19 22:23 Home Medications: Ambulatory Orders Omeprazole 20 mg PO DAILY 02/08/18 Furosemide [Lasix -] 40 mg PO DAILY #30 tablet 09/16/18 Lisinopril [Prinivil] 2.5 mg PO DAILY #30 tablet 09/16/18 Methimazole 20 mg PO BID #120 tablet 09/16/18 propRANOLol HCL [Inderal -] 10 mg PO Q6HPO #120 tablet 09/16/18 Aspirin [Adult Aspirin Regimen] 81 mg PO DAILY #30 tablet. 01/10/19 Atorvastatin Ca [Lipitor] 40 mg PO HS #30 tablet 01/10/19 COPD: No GI Disorders: Yes (GERD) Seizures: Yes Thyroid Disease: Yes (graves disease) - Immunization History Immunization Up to Date: No - Psycho Social/Smoking Cessation Hx Smoking History: Never smoked Have you smoked in the past 12 months: No Hx Alcohol Use: No Drug/Substance Use Hx: No Substance Use Type: None *Physical Exam - Vital Signs Last Vital Signs Temp Pulse Resp BP Pulse Ox 97.9 F 89 18 109/74 97 01/10/19 15:29 01/10/19 15:29 01/10/19 15:29 01/10/19 15:29 01/10/19 04:45 Heart Score/ECG Review - History History: Moderately suspicious - Electrocardiogram EKG: Non specific repolarization disturbance - Age Age: </= 45 - Risk Factors Risk Factors Heart Score: Yes Hx Hypertension, Yes Positive family hx of cardiac disease Based on the list above the patient has:: 1-2 risk factors - Troponin Troponin: </= normal limit - Score Heart Score - Total: 3 ED Treatment Course - LABORATORY CBC & Chemistry Diagram: 01/10/19 06:40 01/10/19 06:40 - ADDITIONAL ORDERS Additional order review: 01/10/19 00:21 RBC 3.96 L MCV 94.2 MCHC 32.9 RDW 16.4 H MPV 9.1 Neutrophils % 43.8 Lymphocytes % 44.7 H Monocytes % 8.1 Eosinophils % 2.7 Basophils % 0.7 - RADIOLOGY Radiology Studies Ordered: Category Date Time Status CXRPORT [CHEST X-RAY PORTABLE*] [RAD] Stat Radiology 01/10/19 01:27 Completed - Medications Given in the ED: ED Medications Discontinued Medications Generic Name Dose Route Start Last Admin Trade Name Freq PRN Reason Stop Dose Admin Aspirin 162 mg 01/09/19 23:12 01/09/19 23:27 Asa - PO 01/09/19 23:13 162 mg ONCE ONE Administration Potassium Chloride 40 meq 01/10/19 09:24 01/10/19 09:30 K-Dur - PO 01/10/19 09:25 40 meq ONCE ONE Administration Propranolol HCl 10 mg 01/10/19 00:45 01/10/19 01:00 Inderal - PO 01/10/19 00:46 10 mg ONCE ONE Administration Regadenoson 0.4 mg 01/10/19 09:45 01/10/19 11:44 Lexiscan IVPUSH 01/10/19 09:46 0.4 mg ONCE ONE Administration Medical Decision Making - Medical Decision Making 01/09/19 23:28 A/P: 33-year-old male with left sided chest pain with extensive cardiac history Palpation has had left-sided chest pain for 3 days. He has been noncompliant with his CHF medications for unknown amount of time. Unsure of his been taking his thyroid medications at this time. Given patient's symptoms and significant cardiac history patient is likely to be admitted for cardiac evaluation. 01/10/19 00:28 EKG sinus rhythm with rate of 81. Left bundle-branch block present. When compared to EKG performed 09/12/18 no significant changes noted. 01/10/19 01:50 Chest x-ray as read by me: Cardiomegaly. Lung moncada are clear without infiltrate or consolidation noted. Prominent hilar noted. No significant change from study performed 09/12/18. I will contact the hospitalist team for admission. Discharge - Discharge Information Problems reviewed: Yes Clinical Impression/Diagnosis: Chest pain Qualifiers: Chest pain type: unspecified Qualified Code(s): R07.9 - Chest pain, unspecified Condition: Stable - Follow up/Referral - Patient Discharge Instructions - Post Discharge Activity
[2019-01-09] MEDS ORDERED: ASPIRIN 81 MG CHEWABLE TABLETS ONE (23:19)
[2019-01-10 00:36] LABS: BASO % 0.7 % (0-2.0); EOS % 2.7 % (0-4.5); HEMATOCRIT 37.3 % (35.4-49); HEMOGLOBIN 12.3 GM/dL (11.7-16.9); LYMPH % 44.7 % (8-40); MCHC 32.9 g/dl (32.0-35.9); MEAN CELL VOLUME 94.2 fl (80-96); MEAN PLT VOLUME 9.1 fl (7.5-11.1); MONO % 8.1 % (3.8-10.2); NEUT % 43.8 % (42.8-82.8); PLATELET COUNT 166 K/MM3 (134-434); RBC 3.96 M/mm3 (4.00-5.60); RDW 16.4 % (11.9-15.9); WHITE BLOOD COUNT 4.9 K/mm3 (4.0-10.0)
[2019-01-10 00:49] LABS: INR 1.27 (0.83-1.09)
--- NOTE | 2019-01-10 01:09 | PDOC ---
*Physical Exam - Vital Signs Last Vital Signs Temp Pulse Resp BP Pulse Ox 97.3 F L 76 18 108/73 100 01/09/19 22:23 01/09/19 22:23 01/09/19 22:23 01/09/19 22:23 01/09/19 22:23 ED Treatment Course - LABORATORY CBC & Chemistry Diagram: 01/10/19 00:21 01/10/19 00:21 - ADDITIONAL ORDERS Additional order review: Laboratory Results 01/10/19 01/10/19 00:21 00:21 PT with INR 15.00 H INR 1.27 H Creatine Kinase 327 H Troponin I < 0.02 01/10/19 00:21 RBC 3.96 L MCV 94.2 MCHC 32.9 RDW 16.4 H MPV 9.1 Neutrophils % 43.8 Lymphocytes % 44.7 H Monocytes % 8.1 Eosinophils % 2.7 Basophils % 0.7 - Medications Given in the ED: ED Medications Discontinued Medications Generic Name Dose Route Start Last Admin Trade Name Yvonne PRN Reason Stop Dose Admin Aspirin 162 mg 01/09/19 23:12 01/09/19 23:27 Asa - PO 01/09/19 23:13 162 mg ONCE ONE Administration Propranolol HCl 10 mg 01/10/19 00:45 01/10/19 01:00 Inderal - PO 01/10/19 00:46 10 mg ONCE ONE Administration Medical Decision Making - Medical Decision Making 01/10/19 01:08 Case reviewed, agree with assessment and plan Discharge - Discharge Information Problems reviewed: Yes Clinical Impression/Diagnosis: Chest pain Qualifiers: Chest pain type: unspecified Qualified Code(s): R07.9 - Chest pain, unspecified Condition: Fair - Follow up/Referral Referrals: Mary Ann Davis MD [Primary Care Provider] - - Patient Discharge Instructions - Post Discharge Activity
[2019-01-10 01:17] LABS: ALBUMIN 3.6 g/dl (3.4-5.0); BILIRUBIN,TOTAL 0.6 mg/dL (0.2-1); BLOOD UREA NITROGEN 13.6 mg/dL (7-18); CALCIUM 8.2 mg/dL (8.5-10.1); CREATININE 1.1 mg/dL (0.55-1.3); MAGNESIUM 1.7 mg/dL (1.8-2.4); N-TERMINAL BNP 1428.2 pg/ml (5-125); POTASSIUM 3.7 mmol/L (3.5-5.1); TOT PROT 6.3 g/dl (6.4-8.2)
--- NOTE | 2019-01-10 02:02 | PDOC ---
*Physical Exam - Vital Signs Last Vital Signs Temp Pulse Resp BP Pulse Ox 97.3 F L 76 18 108/73 100 01/09/19 22:23 01/09/19 22:23 01/09/19 22:23 01/09/19 22:23 01/09/19 22:23 ED Treatment Course - LABORATORY CBC & Chemistry Diagram: 01/10/19 00:21 01/10/19 00:21 - ADDITIONAL ORDERS Additional order review: Laboratory Results 01/10/19 01/10/19 01/10/19 00:21 00:21 00:21 PT with INR 15.00 H INR 1.27 H Sodium 145 Potassium 3.7 Chloride 107 Carbon Dioxide 30 Anion Gap 9 BUN 13.6 Creatinine 1.1 Est GFR (CKD-EPI)AfAm 100.27 Est GFR (CKD-EPI)NonAf 86.51 Random Glucose 76 Calcium 8.2 L Magnesium 1.7 L Total Bilirubin 0.6 AST 35 ALT 19 Alkaline Phosphatase 170 H Creatine Kinase 327 H Creatine Kinase Index 0.4 CK-MB (CK-2) 1.5 Troponin I < 0.02 B-Natriuretic Peptide 1428.2 H Total Protein 6.3 L Albumin 3.6 TSH 1.21 D Free T4 0.84 01/10/19 00:21 RBC 3.96 L MCV 94.2 MCHC 32.9 RDW 16.4 H MPV 9.1 Neutrophils % 43.8 Lymphocytes % 44.7 H Monocytes % 8.1 Eosinophils % 2.7 Basophils % 0.7 - Medications Given in the ED: ED Medications Discontinued Medications Generic Name Dose Route Start Last Admin Trade Name Freq PRN Reason Stop Dose Admin Aspirin 162 mg 01/09/19 23:12 01/09/19 23:27 Asa - PO 01/09/19 23:13 162 mg ONCE ONE Administration Propranolol HCl 10 mg 01/10/19 00:45 01/10/19 01:00 Inderal - PO 01/10/19 00:46 10 mg ONCE ONE Administration Medical Decision Making - Medical Decision Making 01/10/19 01:55 Signout taken from VIRGINIA Adams. Mr. Yun is a 33 yo male w/ pmh of Graves disease , epilepsy, anxiety, heart failure (prior episode of thyrotoxicosis) who presents for evaluation of several day history of chest pain to L chest and worsening dyspnea on exertion. Patient also reports he has not taken CHF medications for several days. EKG significant for left axis deviation and left BBB (unchanged from previous). Patient will be admitted to hospitalist for cardiac evaluation. 01/10/19 03:28 Patient admitted to hospitalist team. Discharge - Discharge Information Problems reviewed: Yes Clinical Impression/Diagnosis: Chest pain Qualifiers: Chest pain type: unspecified Qualified Code(s): R07.9 - Chest pain, unspecified Condition: Fair - Admission Yes - Follow up/Referral Referrals: Mary Ann Davis MD [Primary Care Provider] - - Patient Discharge Instructions - Post Discharge Activity
--- NOTE | 2019-01-10 03:38 | PN ---
Teaching Attending Note Name of Resident: Mark Hamlin ATTENDING PHYSICIAN STATEMENT I saw and evaluated the patient. I reviewed the resident's note and discussed the case with the resident. I agree with the resident's findings and plan as documented. SUBJECTIVE: Patient is a 33 year old man with PMH of Graves' disease, Epilepsy, Anxiety and Systolic CHF who presents to the ER for evaluation of left sided chest pain worsening over the past 3 days. Patient states the pain is a pressure squeezing sensation on the left side of his chest. He denies any shortness of breath or cough. Patient reports an intermittent compliance with his inhibitors and beta blockers due to recent life stressors. Patient reports abdominal bloating and feels he is having increased difficulty walking up inclines and stairs. Patient reports one pillow orthopnea denies PND. Patient reports that in September of this year he was diagnosed with pericardial effusion. He reports he had an outpatient Echocardiogram and EF was up to 25%. OBJECTIVE: Alert Vital Signs Period Temp Pulse Resp BP Sys/Hicks Pulse Ox Last 24 Hr 97.3 F 76-83 18-18 108-115/73-76 97-100 HEENT: No Jaundice, eye redness or discharge, PERRLA, EOMI. Normocephalic, atraumatic. External ears are normal and hearing is grossly intact. No nasal discharge. Neck: Supple, nontender. No palpable adenopathy or thyromegaly. No JVD Chest: Good effort. Clear to auscultation and percussion. Heart: Regular. No S3, rub or murmur Abdomen: Not distended, soft, nontender and no HSM. No rebound or guarding. Normal bowel sounds. Ext: Peripheral pulses intact. No leg edema. Skin: Warm and dry. No petechiae, rash or ecchymosis. Neuro: Alert. Oriented x3. CN 2-12 grossly intact. Sensation grossly intact in all four extremities and DTR are symmetric. Psych: Appropriate mood and affect. Good insight. Current Medications Generic Name Dose Route Start Last Admin Trade Name Freq PRN Reason Stop Dose Admin Enoxaparin Sodium 40 mg 01/10/19 10:00 Lovenox - SQ DAILY YAQUELIN Furosemide 40 mg 01/10/19 10:00 Lasix - PO DAILY YAQUELIN Lisinopril 2.5 mg 01/10/19 10:00 Prinivil PO DAILY YAQUELIN Methimazole 20 mg 01/10/19 10:00 Tapazole - PO BID [facility] Non-Formulary Medication 20 mg 01/10/19 10:00 Omeprazole PO DAILY [facility] Propranolol HCl 10 mg 01/10/19 06:00 Inderal - PO Q6HPO [facility] Home Medications Medication Instructions Recorded Omeprazole 20 mg PO DAILY 02/08/18 Furosemide [Lasix -] 40 mg PO DAILY #30 tablet 09/16/18 Lisinopril [Prinivil] 2.5 mg PO DAILY #30 tablet 09/16/18 Methimazole 20 mg PO BID #120 tablet 09/16/18 propRANOLol HCL [Inderal -] 10 mg PO Q6HPO #120 tablet 09/16/18 Abnormal Lab Results 01/10/19 01/10/19 01/10/19 00:21 00:21 00:21 RBC 3.96 L RDW 16.4 H Lymphocytes % 44.7 H PT with INR 15.00 H INR 1.27 H Calcium Magnesium Alkaline Phosphatase Creatine Kinase 327 H B-Natriuretic Peptide Total Protein 01/10/19 00:21 RBC RDW Lymphocytes % PT with INR INR Calcium 8.2 L Magnesium 1.7 L Alkaline Phosphatase 170 H Creatine Kinase B-Natriuretic Peptide 1428.2 H Total Protein 6.3 L ASSESSMENT AND PLAN: 1. Chest pain - Pain is atypical. EKG shows NSR, LAE and LBBB but no significant ST-T wave changes. Initial troponin is negative. CXR shows cardiomegaly, hilar prominence, increased hilar prominence, pulmonary congestion and obscured left costophrenic angle. Will get sonogram to rule out left-sided pleural effusion. Will admit to telemetry to rule out ACS, diurese with IV lasix, get daily standing weight, restrict dietary salt intake and consult cardiology. Will get urinalysis, replenish magnesium IV, get PTH and Vitamin D level. Continue comprehensive care for all of patients comorbid conditions including Grave's disease. 2. DVT prophylaxis - Lovenox 40 mg SQ q 24 hours. 3. Advance directives - Full code
--- NOTE | 2019-01-10 04:51 | HP ---
CHIEF COMPLAINT: chest pain PCP: [facility]: Dr. Bourne HISTORY OF PRESENT ILLNESS: Patient is a 33 year old male with history of Grave's disease, epilepsy (not on antiepiliptics), anxiety, and systolic heart failure (EF 15-20%) presents with complaint of chest pain. Described as left sided, squeezing, pressure- like pain that that is intermittent. Patient endorses pain has been ongoing for past three days. First noted as he was walking up stairs, however also occurs at rest. 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 He denies palliative features. He states that he is complaint with his home medications. Denies subjective fevers, chills, shortness of breath, abdominal pain, nausea, vomiting. Patient admits that he was recently diagnosed with ?pericarditis, and has been started on Lasix. ER course was notable for: (1) EKG normal sinus rhythm at 81 BPM (2) Troponin 0,02 (3) Recent Travel: denies PAST MEDICAL HISTORY: Grave's disease, epilepsy, anxiety, systolic heart failure PAST SURGICAL HISTORY: denies Social History: Smoking: former smoker (quarter pack per day), quit three years ago Alcohol: denies Drugs: denies Family History: -Mother: Diabetes mellitus -Father: Denies significant history. Allergies shellfish derived Allergy (Verified 01/09/19 22:23) HOME MEDICATIONS: Home Medications Medication Instructions Recorded Omeprazole 20 mg PO DAILY 02/08/18 Furosemide [Lasix -] 40 mg PO DAILY #30 tablet 09/16/18 Lisinopril [Prinivil] 2.5 mg PO DAILY #30 tablet 09/16/18 Methimazole 20 mg PO BID #120 tablet 09/16/18 propRANOLol HCL [Inderal -] 10 mg PO Q6HPO #120 tablet 09/16/18 REVIEW OF SYSTEMS CONSTITUTIONAL: Absent: fever, chills, diaphoresis, generalized weakness, malaise, loss of appetite, weight change HEENT: Absent: rhinorrhea, nasal congestion, throat pain, throat swelling, difficulty swallowing, mouth swelling, ear pain, eye pain, visual changes CARDIOVASCULAR: Admits: chest pain. Absent: syncope, palpitations, irregular heart rate, lightheadedness, peripheral edema RESPIRATORY: Absent: cough, shortness of breath, dyspnea with exertion, orthopnea, wheezing, stridor, hemoptysis GASTROINTESTINAL: Absent: abdominal pain, abdominal distension, nausea, vomiting, diarrhea, constipation, melena, hematochezia GENITOURINARY: Absent: dysuria, frequency, urgency, hesitancy, hematuria, flank pain, genital pain MUSCULOSKELETAL: Absent: myalgia, arthralgia, joint swelling, back pain, neck pain SKIN: Absent: rash, itching, pallor HEMATOLOGIC/IMMUNOLOGIC: Absent: easy bleeding, easy bruising, lymphadenopathy, frequent infections ENDOCRINE: Absent: unexplained weight gain, unexplained weight loss, heat intolerance, cold intolerance NEUROLOGIC: Absent: headache, focal weakness or paresthesias, dizziness, unsteady gait, seizure, mental status changes, bladder or bowel incontinence PSYCHIATRIC: Absent: anxiety, depression, suicidal or homicidal ideation, hallucinations. PHYSICAL EXAMINATION Vital Signs - 24 hr 01/09/19 01/10/19 22:23 04:01 Temperature 97.3 F L Pulse Rate 76 Pulse Rate [ 83 Right] Respiratory 18 18 Rate Blood Pressure 108/73 Blood Pressure 115/76 [Right Arm] O2 Sat by Pulse 100 97 Oximetry (%) GENERAL: The patient is awake, alert, and fully oriented, in no acute distress. HEAD: Normocephalic, atraumatic. EYES: PERRL, extraocular movements intact, sclera anicteric, conjunctiva clear. ENT: Oropharynx clear, without erythema or exudates. Moist mucous membranes. NECK: Trachea midline, full range of motion. Supple without lymphadenopathy. LUNGS: Breath sounds equal, clear to auscultation bilaterally, no wheezes, no crackles. No accessory muscle use. HEART: Regular rate and rhythm, S1, S2 without murmur, rub or gallop. ABDOMEN: Soft, nondistended, nontender to light and deep palpation x4 quadrants , no rebound tenderness, no guarding. Normoactive bowel sounds x4 quadrants. no hepatosplenomegaly, no masses. EXTREMITIES: 2+ radial, dorsalis pedis pulses bilaterally. Warm, well-perfused. No lower extremity edema bilaterally. NEUROLOGICAL: Cranial nerves II through XII grossly intact. Normal speech. No gross focal deficits. PSYCH: Normal mood, normal affect upon my encounter. SKIN: Warm, dry. Laboratory Results - last 24 hr 01/10/19 01/10/19 01/10/19 00:21 00:21 00:21 WBC 4.9 RBC 3.96 L Hgb 12.3 Hct 37.3 MCV 94.2 MCH 31.0 MCHC 32.9 RDW 16.4 H Plt Count 166 MPV 9.1 Absolute Neuts (auto) 2.2 Neutrophils % 43.8 Lymphocytes % 44.7 H Monocytes % 8.1 Eosinophils % 2.7 Basophils % 0.7 Nucleated RBC % 0 PT with INR 15.00 H INR 1.27 H Sodium Potassium Chloride Carbon Dioxide Anion Gap BUN Creatinine Est GFR (CKD-EPI)AfAm Est GFR (CKD-EPI)NonAf Random Glucose Calcium Magnesium Total Bilirubin AST ALT Alkaline Phosphatase Creatine Kinase 327 H Creatine Kinase Index 0.4 CK-MB (CK-2) 1.5 Troponin I < 0.02 B-Natriuretic Peptide Total Protein Albumin TSH Free T4 01/10/19 00:21 WBC RBC Hgb Hct MCV MCH MCHC RDW Plt Count MPV Absolute Neuts (auto) Neutrophils % Lymphocytes % Monocytes % Eosinophils % Basophils % Nucleated RBC % PT with INR INR Sodium 145 Potassium 3.7 Chloride 107 Carbon Dioxide 30 Anion Gap 9 BUN 13.6 Creatinine 1.1 Est GFR (CKD-EPI)AfAm 100.27 Est GFR (CKD-EPI)NonAf 86.51 Random Glucose 76 Calcium 8.2 L Magnesium 1.7 L Total Bilirubin 0.6 AST 35 ALT 19 Alkaline Phosphatase 170 H Creatine Kinase Creatine Kinase Index CK-MB (CK-2) Troponin I B-Natriuretic Peptide 1428.2 H Total Protein 6.3 L Albumin 3.6 TSH 1.21 D Free T4 0.84 ASSESSMENT/PLAN: Patient is a 33 year old male with history of Grave's disease, epilepsy (not on antiepiliptics), anxiety, and systolic heart failure (EF 15-20%) presents with complaint of chest pain. Atypical chest pain -EKG reveals sinus rhythm at 81 with left axis deviation (prior study with right axis deviation) and left bundle branch block (seen on prior EKG) -Initial troponin 0.02. Will follow -Chest radiograph reveals cardiomegaly. -Cardiac ECHO -Cardiology consult (Dr. Bourne) -Cardiac monitoring Systolic heart failure -EF 15- 20% with severe global hypokinesis of left ventricle, RV mildly dilated and systolic function mildly reduced. Left and right atriu mldly dilated. -BNP 1428 (2299 on past admission) -Continue home Lisinopril, Lasix -Holding Propranolol in anticipation of any further cardiac testing. Reinstate once clinically appropriate. -Patient was fitted for LifeVest at prior admission 10/02, however patient noted not to be wearing upon presentation. Grave's Disease -Continue home Methimazole -Follow TSH, free T4 FEN -No IV fluids indicated -Hypomagnesemia, repleted. Follow BMP, replete as necessary -NPO pending cardiology evaluation Prophylaxis -Lovenx 40mg subq daily Disposition -Admit for telemetry observation ATTENDING PHYSICIAN STATEMENT I saw and evaluated the patient. I reviewed the resident's note and discussed the case with the resident. I agree with the resident's findings and plan as documented. SUBJECTIVE: OBJECTIVE: ASSESSMENT AND PLAN:
[2019-01-10] MEDS ORDERED: SODIUM CHLORIDE 1,000 ML IV SCH (05:00)
[2019-01-10 05:24] VITALS: BMI 24.7
[2019-01-10 07:35] LABS: ALBUMIN 3.2 g/dl (3.4-5.0); ALK PHOS 151 U/L (45-117); ANION GAP 7 MMOL/L (8-16); BILIRUBIN,TOTAL 0.5 mg/dL (0.2-1); BLOOD UREA NITROGEN 12.4 mg/dL (7-18); CALCIUM 8.1 mg/dL (8.5-10.1); CHLORIDE 107 mmol/L (98-107); CO2 28 mmol/L (21-32); GLUCOSE,RANDOM 121 mg/dL (74-106); MAGNESIUM 1.9 mg/dL (1.8-2.4); PHOSPHOROUS 4.2 mg/dL (2.5-4.9); POTASSIUM 3.3 mmol/L (3.5-5.1); SGOT/AST 23 U/L (15-37); SGPT/ALT 17 U/L (13-61); SODIUM 141 mmol/L (136-145); TOT PROT 5.5 g/dl (6.4-8.2)
[2019-01-10 07:42] LABS: HEMATOCRIT 35.2 % (35.4-49); HEMOGLOBIN 11.9 GM/dL (11.7-16.9); MCH 31.3 pg (25.7-33.7); MCHC 33.7 g/dl (32.0-35.9); MEAN CELL VOLUME 92.8 fl (80-96); MEAN PLT VOLUME 9.1 fl (7.5-11.1); PLATELET COUNT 155 K/MM3 (134-434); RBC 3.79 M/mm3 (4.00-5.60); RDW 16.1 % (11.9-15.9); WHITE BLOOD COUNT 4.5 K/mm3 (4.0-10.0)
--- NOTE | 2019-01-10 09:10 | CON.CARD ---
Consult Consult Specialty:: Cardiology Referred by:: Dr. Conner Reason for Consultation:: Chest pain - History of Present Illness Chief Complaint: chest pain History of Present Illness: Patient is a 33 year old man with PMH of Graves' disease, Epilepsy, Anxiety and Systolic CHF who presents to the ER for evaluation of left sided chest pain worsening over the past 3 days. Patient states the pain is a pressure squeezing sensation on the left side of his chest. He denies any shortness of breath or cough. Patient reports an intermittent compliance with his inhibitors and beta blockers due to recent life stressors. Patient reports abdominal bloating and feels he is having increased difficulty walking up inclines and stairs. Patient reports one pillow orthopnea denies PND. Patient reports that in September of this year he was diagnosed with pericardial effusion. He reports he had an outpatient Echocardiogram and EF was up to 25%. He states the pain is worse laying down, denies recent URI, cough. Not exertional, no jaw pain, no N/V. EF reduced, presumed due to hyperthyroid; but repeat echo in November showed persistent severe EF. Last visit he was recommended to have ICD; but he refused it. - History Source History Provided By: Patient, Medical Record - Past Medical History Cardio/Vascular: Yes: CHF Pulmonary: No: Asthma, Bronchitis, Cancer, COPD, O2 Dependent, Pneumonia, Previously Intubated, Pulmonary Embolus, Pulmonary Fibrosis, Sleep Apnea, Other Gastrointestinal: No: Ascites, Cancer, Constipation, Crohn's Disease, Diverticulitis, Diverticulosis, Esophageal Varices, Gastritis, GERD, GI Bleed, Hemorrhoids, Hiatal Hernia, Inflamatory Bowel Disease, Irritable Bowel Disease, Pancreatitis, Peptic Ulcer Disease, Ulcerative Colitis, Other Hepatobiliary: No: Cirrhosis, Cholelithiasis, Cholecystitis, Choledocholithiasis , Hepatitis A, Hepatitis B, Hepatitis C, Other Renal/: No: Renal Failure, Renal Inusuff, BPH, Cancer, Hematuria, Hemodialysis , Neurogenic Bladder, Renal Calculi, UTI, Other Heme/Onc: No: Anemia, B12 Deficiency, Bleeding Disorder, Cancer, Current Chemotherapy, Current Radiation Therapy, Hemochromatosis, Hypercoaguable State, Myeloproliferative Synd, Sickle Cell Disease, Sickle Cell Trait, Thrombocytopenia, Other Infectious Disease: No: AIDS, C-Diff, Herpes Zoster, HIV, MRSA, STD's, Tuberculosis, VREF, Other Psych: No: Addictions, Anxiety, Bipolar, Depression, Panic, Psychosis, Schizophrenia, Other Endocrine: Yes: Hyperthyroidism - Alcohol/Substance Use Hx Alcohol Use: No - Smoking History Smoking history: Never smoked Have you smoked in the past 12 months: No - Social History History of Recent Travel: No Home Medications - Allergies Allergies/Adverse Reactions: Allergies Allergy/AdvReac Type Severity Reaction Status Date / Time shellfish derived Allergy Verified 01/09/19 22:23 - Home Medications Home Medications: Ambulatory Orders Omeprazole 20 mg PO DAILY 02/08/18 Furosemide [Lasix -] 40 mg PO DAILY #30 tablet 09/16/18 Lisinopril [Prinivil] 2.5 mg PO DAILY #30 tablet 09/16/18 Methimazole 20 mg PO BID #120 tablet 09/16/18 propRANOLol HCL [Inderal -] 10 mg PO Q6HPO #120 tablet 09/16/18 Family Medical History Family History: Unremarkable Review of Systems - Review of Systems Constitutional: reports: No Symptoms Eyes: reports: No Symptoms HENT: reports: No Symptoms Neck: reports: No Symptoms Cardiovascular: reports: Chest Pain Respiratory: reports: No Symptoms Gastrointestinal: reports: No Symptoms Genitourinary: reports: No Symptoms Breasts: reports: No Symptoms Reported Musculoskeletal: reports: No Symptoms Integumentary: reports: No Symptoms Neurological: reports: No Symptoms Endocrine: reports: No Symptoms Hematology/Lymphatic: reports: No Symptoms Vital Signs: Vital Signs Temperature 97.7 F 01/10/19 06:00 Pulse Rate 82 01/10/19 06:00 Respiratory Rate 18 01/10/19 06:00 Blood Pressure 120/76 01/10/19 06:00 O2 Sat by Pulse Oximetry (%) 97 01/10/19 04:45 Constitutional: Yes: No Distress, Calm Eyes: Yes: Conjunctiva Clear Respiratory: Yes: CTA Bilaterally Gastrointestinal: Yes: Soft Cardiovascular: Yes: Regular Rate and Rhythm Heart Sounds: Yes: S1, S2 Edema: No Peripheral Pulses WNL: Yes Neurological: Yes: Alert, Oriented - Other Data Labs, Other Data: CBC, BMP 01/10/19 06:40 01/10/19 06:40 INR, PTT INR 1.27 (0.83-1.09) H 01/10/19 00:21 Troponin, BNP 01/10/19 01/10/19 01/10/19 00:21 00:21 06:40 Troponin I < 0.02 < 0.02 B-Natriuretic Peptide 1428.2 H Troponin, BNP 01/10/19 01/10/19 01/10/19 00:21 00:21 06:40 Troponin I < 0.02 < 0.02 B-Natriuretic Peptide 1428.2 H Echo: Pending Imaging - Results EKG: Image Reviewed Assessment/Plan IMP: Cardiomyopathy, possibly due to hyperthyroid Persistent Low EF Atypical CP, enzymes neg Abnl ECG ( LBBB) REC: 1. Repeat echo 2. For Lexiscan MPI, r/o ischemia 3. Continue ASA and home meds Further reccs pending above
[2019-01-10] MEDS ORDERED: POTASSIUM CHLORIDE TABS 20 MEQ TABLET.ER (FP) PO ONE (09:24)
[2019-01-10] MEDS ORDERED: PT OWN MED DRAWER 7, Y5N ONE ×2 (09:28→16:31)
[2019-01-10] MEDS ORDERED: REGADENOSON 0.4 MG/5 ML PRE-FILLED SYRINGE IVPUSH ONE ×2 (09:45→10:27)
[2019-01-10] MEDS ORDERED: FUROSEMIDE 40 MG TABLET (FP) PO SCH (10:00)
[2019-01-10] MEDS ORDERED: PANTOPRAZOLE 20 MG TABLET (FP) PO SCH (10:00)
[2019-01-10] MEDS ORDERED: METHIMAZOLE 10 MG TABLET (FP) PO SCH (10:00)
[2019-01-10] MEDS ORDERED: ENOXAPARIN NA (PORCINE) 40 MG/0.4 ML DISP.SYRIN SQ SCH (10:00)
[2019-01-10] MEDS ORDERED: LISINOPRIL 5 MG TABLET (FP) PO SCH (10:00)
[2019-01-10] MEDS ORDERED: PATIENT'S OWN MEDICATION (NON-FORMULARY) (Omeprazole 20 MG) PO SCH (10:00)
--- NOTE | 2019-01-10 10:34 | ECHO ---
Name: KRAIG ABDUL Exam:Adult Echocardiogram Study Date: 01/10/2019 09:07 AM Age: 33 yrs Reason For Study: evaluate for systolic function Height: 74 in Weight: 192 lb BSA: 2.1 m2 Left Ventricle The left ventricle is mildly dilated. Ejection Fraction = 15-20%. Left ventricular systolic function is severely reduced. There is severe global hypokinesis of the left ventricle. Right Ventricle The right ventricle is mildly dilated. The right ventricular systolic function is mildly reduced. Atria Normal left and right atrial size and function. Mitral Valve The mitral valve is normal in structure and function. There is no mitral valve stenosis. There is mil d mitral regurgitation. Tricuspid Valve The tricuspid valve is normal in structure and function. There is mild tricuspid regurgitation. Right ventricular systolic pressure is elevated at 30-40mmHg. Aortic Valve The aortic valve is trileaflet. No hemodynamically significant valvular aortic stenosis. No aortic regurgitation is present. Pulmonic Valve The pulmonic valve is not well seen, but is grossly normal. There is no pulmonic valvular stenosis. Great Vessels The aortic root is normal size. Pericardium/Pleura There is no pericardial effusion. Interpretation Summary The left ventricle is mildly dilated. There is severe global hypokinesis of the left ventricle. Ejection Fraction = 15-20%. Left ventricular systolic function is severely reduced. The right ventricle is mildly dilated. The right ventricular systolic function is mildly reduced. There is mild mitral regurgitation. There is mild tricuspid regurgitation. Right ventricular systolic pressure is elevated at 30-40mmHg. There is no pericardial effusion. MD Morejon *Carla 01/10/2019 10:34 AM
--- NOTE | 2019-01-10 13:24 | PN ---
Teaching Attending Note Name of Resident: Hoang Alexander ATTENDING PHYSICIAN STATEMENT I saw and evaluated the patient. I reviewed the resident's note and discussed the case with the resident. I agree with the resident's findings and plan as documented with exceptions below. SUBJECTIVE: Patient seen and examined. intermittent chest pain. Also reports bloating and leg swelling, orthopnea. Chest symptoms reports more when lying flat. No exertional symptoms. Reports exercising till few days back with no c/o exertional chest pain or dyspnea. OBJECTIVE: Vital Signs Period Temp Pulse Resp BP Sys/Hicks Pulse Ox Last 24 Hr 97.3 F-97.8 F 62-83 18-18 108-122/73-95 97-100 Intake & Output 01/07/19 01/08/19 01/09/19 01/10/19 23:59 23:59 23:59 23:59 Intake Total 250 Balance 250 Weight 187 lb 192 lb 6 oz General: sitting in chair, no acute distress Neck: soft, supple, no JVD visualized Chest: CTAB, no rales or wheezing CVS:S1S2 regular Abdomen:soft, NT, ND, pos bowel sounds Extremities: 1+ pitting pedal edema Home Medications Medication Instructions Recorded Omeprazole 20 mg PO DAILY 02/08/18 Furosemide [Lasix -] 40 mg PO DAILY #30 tablet 09/16/18 Lisinopril [Prinivil] 2.5 mg PO DAILY #30 tablet 09/16/18 Methimazole 20 mg PO BID #120 tablet 09/16/18 propRANOLol HCL [Inderal -] 10 mg PO Q6HPO #120 tablet 09/16/18 Active Medications Enoxaparin Sodium (Lovenox -) 40 mg SQ DAILY [facility] Last Admin: 01/10/19 09:30 Dose: 40 mg Furosemide (Lasix -) 40 mg PO DAILY [facility] Last Admin: 01/10/19 09:30 Dose: 40 mg Lisinopril (Prinivil) 2.5 mg PO DAILY [facility] Last Admin: 01/10/19 09:31 Dose: 2.5 mg Methimazole (Tapazole -) 20 mg PO BID [facility] Last Admin: 01/10/19 09:32 Dose: 20 mg Pantoprazole Sodium (Protonix -) 20 mg PO DAILY [facility] Last Admin: 01/10/19 09:30 Dose: 20 mg Propranolol HCl (Inderal -) 10 mg PO Q6HPO YAQUELIN Last Admin: 01/10/19 06:42 Dose: 10 mg Laboratory Results - last 24 hr 01/10/19 01/10/19 01/10/19 00:21 00:21 00:21 WBC 4.9 RBC 3.96 L Hgb 12.3 Hct 37.3 MCV 94.2 MCH 31.0 MCHC 32.9 RDW 16.4 H Plt Count 166 MPV 9.1 Absolute Neuts (auto) 2.2 Neutrophils % 43.8 Lymphocytes % 44.7 H Monocytes % 8.1 Eosinophils % 2.7 Basophils % 0.7 Nucleated RBC % 0 PT with INR 15.00 H INR 1.27 H Sodium Potassium Chloride Carbon Dioxide Anion Gap BUN Creatinine Est GFR (CKD-EPI)AfAm Est GFR (CKD-EPI)NonAf Random Glucose Calcium Phosphorus Magnesium Total Bilirubin AST ALT Alkaline Phosphatase Creatine Kinase 327 H Creatine Kinase Index 0.4 CK-MB (CK-2) 1.5 Troponin I < 0.02 B-Natriuretic Peptide Total Protein Albumin TSH Free T4 01/10/19 01/10/19 01/10/19 00:21 06:40 06:40 WBC 4.5 RBC 3.79 L Hgb 11.9 Hct 35.2 L MCV 92.8 MCH 31.3 MCHC 33.7 RDW 16.1 H Plt Count 155 MPV 9.1 Absolute Neuts (auto) Neutrophils % Lymphocytes % Monocytes % Eosinophils % Basophils % Nucleated RBC % PT with INR INR Sodium 145 141 Potassium 3.7 3.3 L Chloride 107 107 Carbon Dioxide 30 28 Anion Gap 9 7 L BUN 13.6 12.4 Creatinine 1.1 1.0 Est GFR (CKD-EPI)AfAm 100.27 112.51 Est GFR (CKD-EPI)NonAf 86.51 97.08 Random Glucose 76 121 H Calcium 8.2 L 8.1 L Phosphorus 4.2 Magnesium 1.7 L 1.9 Total Bilirubin 0.6 0.5 AST 35 23 ALT 19 17 Alkaline Phosphatase 170 H 151 H Creatine Kinase Creatine Kinase Index CK-MB (CK-2) Troponin I < 0.02 B-Natriuretic Peptide 1428.2 H Total Protein 6.3 L 5.5 L Albumin 3.6 3.2 L TSH 1.21 D Free T4 0.84 CXR results and images reviewed ASSESSMENT AND PLAN: 33 yom with PMhx of Grave's disease, epilepsy (not on antiepiliptics), anxiety, and systolic heart failure (EF 15-20%), suspected from hyperthyroidism, suspected non compliance, comes with intermittent chest pain for 3-4 days, abdominal bloating. -Chest pain -Suspected medication/Life vest non compliance -Grave's disease -Chronic systolic heart failure/Cardiomyopathy, ?From Hyperthyroidism Plan: Cardiology input noted, telemetry with no events. ACS ruled out. 2D echo/stress test results reviewed Counseled on medication and lifevest compliance. Discussed with Dr. Aguirre, attempting to retrieve cath test results from [facility]. Dispo planning and outpatient follow up for AICD accordingly. Continue lasix/lisinopril/methimazole/propranolol DVTPPX lovenox Dispo pending cardiology clearance. Discussed with patient and social work.
[2019-01-10] MEDS ORDERED: MAGNESIUM OXIDE 400 MG TABLET (FP) PO SCH (13:30)
--- NOTE | 2019-01-10 14:07 | EKG ---
Test Reason : Blood Pressure : / mmHG Vent. Rate : 081 BPM Atrial Rate : 081 BPM P-R Int : 204 ms QRS Dur : 156 ms QT Int : 454 ms P-R-T Axes : 081 -76 070 degrees QTc Int : 527 ms NORMAL SINUS RHYTHM POSSIBLE LEFT ATRIAL ENLARGEMENT LEFT AXIS DEVIATION LEFT BUNDLE BRANCH BLOCK ABNORMAL ECG WHEN COMPARED WITH ECG OF 12-SEP-2018 19:42, QUESTIONABLE CHANGE IN QRS AXIS Confirmed by SRAVANTHI DÍAZ MD ([id number]) on 01/10/2019 2:07:06 PM Referred By: Confirmed By:SRAVANTHI DÍAZ MD
[2019-01-10 15:31] VITALS: BP 109/74; PULSE 89; TEMP 97.9
--- NOTE | 2019-01-10 23:01 | DS ---
Physical Exam: SUBJECTIVE: Patient seen and examined OBJECTIVE: Vital Signs Period Temp Pulse Resp BP Sys/Hicks Pulse Ox Last 24 Hr 97.7 F-97.9 F 62-89 18-18 109-122/74-95 97-97 PHYSICAL EXAM GENERAL: The patient is awake, alert, and fully oriented, in no acute distress. HEAD: Normal with no signs of trauma. EYES: PERRL, extraocular movements intact, sclera anicteric, conjunctiva clear. ENT: Ears normal, nares patent, oropharynx clear without exudates, moist mucous membranes. NECK: Trachea midline, full range of motion, supple. LUNGS: Breath sounds equal, clear to auscultation bilaterally, no wheezes, no crackles, no accessory muscle use. HEART: Regular rate and rhythm, S1, S2 without murmur, rub or gallop. ABDOMEN: Soft, nontender, nondistended, normoactive bowel sounds, no guarding, no rebound, no hepatosplenomegaly, no masses. EXTREMITIES: 2+ pulses, warm, well-perfused, no edema. NEUROLOGICAL: Cranial nerves II through XII grossly intact. Normal speech, gait not observed. PSYCH: Normal mood, normal affect. SKIN: Warm, dry, normal turgor, no rashes or lesions noted. LABS Laboratory Results - last 24 hr 01/10/19 01/10/19 01/10/19 00:21 00:21 00:21 WBC 4.9 RBC 3.96 L Hgb 12.3 Hct 37.3 MCV 94.2 MCH 31.0 MCHC 32.9 RDW 16.4 H Plt Count 166 MPV 9.1 Absolute Neuts (auto) 2.2 Neutrophils % 43.8 Lymphocytes % 44.7 H Monocytes % 8.1 Eosinophils % 2.7 Basophils % 0.7 Nucleated RBC % 0 PT with INR 15.00 H INR 1.27 H Sodium Potassium Chloride Carbon Dioxide Anion Gap BUN Creatinine Est GFR (CKD-EPI)AfAm Est GFR (CKD-EPI)NonAf Random Glucose Calcium Phosphorus Magnesium Total Bilirubin AST ALT Alkaline Phosphatase Creatine Kinase 327 H Creatine Kinase Index 0.4 CK-MB (CK-2) 1.5 Troponin I < 0.02 B-Natriuretic Peptide Total Protein Albumin TSH Free T4 01/10/19 01/10/19 01/10/19 00:21 06:40 06:40 WBC 4.5 RBC 3.79 L Hgb 11.9 Hct 35.2 L MCV 92.8 MCH 31.3 MCHC 33.7 RDW 16.1 H Plt Count 155 MPV 9.1 Absolute Neuts (auto) Neutrophils % Lymphocytes % Monocytes % Eosinophils % Basophils % Nucleated RBC % PT with INR INR Sodium 145 141 Potassium 3.7 3.3 L Chloride 107 107 Carbon Dioxide 30 28 Anion Gap 9 7 L BUN 13.6 12.4 Creatinine 1.1 1.0 Est GFR (CKD-EPI)AfAm 100.27 112.51 Est GFR (CKD-EPI)NonAf 86.51 97.08 Random Glucose 76 121 H Calcium 8.2 L 8.1 L Phosphorus 4.2 Magnesium 1.7 L 1.9 Total Bilirubin 0.6 0.5 AST 35 23 ALT 19 17 Alkaline Phosphatase 170 H 151 H Creatine Kinase Creatine Kinase Index CK-MB (CK-2) Troponin I < 0.02 B-Natriuretic Peptide 1428.2 H Total Protein 6.3 L 5.5 L Albumin 3.6 3.2 L TSH 1.21 D Free T4 0.84 HOSPITAL COURSE: Date of Admission:01/10/19 Date of Discharge: 01/10/19 Discharge Summary Reason For Visit: CHEST PAIN Condition: Stable - Instructions Diet, Activity, Other Instructions: You were seen here due your chest pain. You had an ultrasound of your heart which showed your heart was still weakened. In addition you had a stress test which showed your chronic heart problem, but no new problems. MEDICATIONS: It is important to be compliant with ALL of your medications. Please continue to take your home medications as below: Propanolol 10mg every 6 hours per day Lasix 40mg PO DAILY Lisinopril 2.5mg DAILY Methimazole 20mg TWICE daily You are being sent aspirin 81mg daily to take which has been sent to your pharmacy You are also being sent Lipitor 40mg to take NIGHTLY --If you develop muscle aches and joint pains this may be due to your medication and you need to call your doctors to let them know It is EXTREMELY important to wear your LifeVest because you are at risk of having an abnormal heart rhythm which would be dangerous. Weigh yourself daily and notify your doctor if weight gain > 3lbs in 2 days. FOLLOW-UPs: Please follow-up with your primary care physicians Please follow-up with your gun tester: Dr. Bourne to discuss a defibillator as you are at high risk of sudden cardiac If you notice new chest pain, trouble breathing or any new concerns, please call 911 or come to ED. Referrals: Tarik Bourne MD [Staff Physician] - 1 Week Mary Ann Davis MD [Primary Care Provider] - 1 Week Disposition: HOME - Home Medications Comprehensive Discharge Medication List: Ambulatory Orders Omeprazole 20 mg PO DAILY 02/08/18 Furosemide [Lasix -] 40 mg PO DAILY #30 tablet 09/16/18 Lisinopril [Prinivil] 2.5 mg PO DAILY #30 tablet 09/16/18 Methimazole 20 mg PO BID #120 tablet 09/16/18 propRANOLol HCL [Inderal -] 10 mg PO Q6HPO #120 tablet 09/16/18 Aspirin [Adult Aspirin Regimen] 81 mg PO DAILY #30 tablet. 01/10/19 Atorvastatin Ca [Lipitor] 40 mg PO HS #30 tablet 01/10/19 ATTENDING PHYSICIAN STATEMENT I saw and evaluated the patient. I reviewed the resident's note and discussed the case with the resident. I agree with the resident's findings and plan as documented. SUBJECTIVE: OBJECTIVE: ASSESSMENT AND PLAN:
== END 2019-01-10 17:36 | disposition home or self-care (01) ==
LOC: JER 21:59 → JERBED 01-10 03:29 → J4W 01-10 04:33
PROVIDERS: ADMIT Internal Medicine; ATTEND Hospitalist
PROC: 3E033GC Introduction of Other Therapeutic Substance into Peripheral Vein, Percutaneous Approach (ICD-10-PCS; principal; 2019-01-10)
PROC: 3E013GC Introduction of Other Therapeutic Substance into Subcutaneous Tissue, Percutaneous Approach (ICD-10-PCS; 2019-01-10)
DX: R07.89 Other chest pain (principal); G40.909 Epilepsy, unspecified, not intractable, without status epilepticus; E05.00 Thyrotoxicosis with diffuse goiter without thyrotoxic crisis or storm; F41.9 Anxiety disorder, unspecified; I50.20 Unspecified systolic (congestive) heart failure; K21.9 Gastro-esophageal reflux disease without esophagitis; I44.7 Left bundle-branch block, unspecified; I42.9 Cardiomyopathy, unspecified; Z91.14 Patient's other noncompliance with medication regimen; Z79.82 Long term (current) use of aspirin
CPT/HCPCS: 36415; 71045-TC-FY; 78452-TC; 80053; 82550; 82553; 83735; 83880; 84100; 84439; 84443; 84481; 84484; 85025; 85027; 85610; 93005; 93010; 93017; 93306-TC; 96372; 96374; 99283-25; A9502; C1887; G0378; J2785

== ENCOUNTER 2020-01-09 03:00 | Inpatient (IN) | payer OTHER ==
--- NOTE | 2020-01-09 03:09 | PDOC ---
History of Present Illness - General Stated Complaint: CHEST PAIN Time Seen by Provider: 01/09/20 03:04 - History of Present Illness Initial Comments: HPI: 01/09/20 03:08 34 yo M PMH Grave's disease, systolic heart failure (EF 15-20%) 2/2 thyrotoxicosis (supposed to wear LifeVest, discuss AICD options with Dr. Bourne), epilepsy (not on antiepiliptics), and anxiety, presenting with chest pain for the past two days. States that he has separate L sided 6/10 sharp non- radiating chest pain and a 7/10 L chest pressure, each of which are intermittent, lasting minutes to seconds at a time, without associated SOB, N/V, or diaphoresis. No association with activity. Further complains of intermittent "room tilting" sensation over the past 1.5 weeks, lasting minutes to seconds at a time, without association with head movement. Has never had this type of sy mptom before. Notes that he has actually moved to [place] and now follows with [facility]; here currently visiting friends. Reports that he had an echo a week ago which showed an EF of 30%. States that he is planned for an ICD in about 8 weeks. ROS: GENERAL/CONSTITUTIONAL: denies fever, chills, diaphoresis, generalized weakness HEAD, EYES, EARS, NOSE AND THROAT: denies rhinorrhea, nasal congestion, throat pain, throat swelling NEUROLOGIC: endorses dizziness like "room is tilting". Denies headache, focal weakness, unsteady gait, seizure, mental status changes, bladder or bowel incontinence CARDIOVASCULAR: endorses chest pain and chest pressure. Denies syncope, light headedness, peripheral edema RESPIRATORY: denies cough, shortness of breath, dyspnea with exertion, wheezing GASTROINTESTINAL: denies abdominal pain, abdominal distension, nausea, vomiting, diarrhea, constipation, melena, hematochezia GENITOURINARY: denies dysuria, frequency, urgency, hesitancy, hematuria, flank pain, genital pain MUSCULOSKELETAL: denies myalgia, arthralgia, joint swelling, back pain, neck pain SKIN: denies rash, itching, pallor HEMATOLOGIC/IMMUNOLOGIC: denies easy bleeding, easy bruising, lymphadenopathy, frequent infections ENDOCRINE: denies unexplained weight gain, unexplained weight loss, heat intolerance, cold intolerance PSYCHIATRIC: denies anxiety, depression, suicidal or homicidal ideation, hallucinations PE: Gen: well-developed, well-nourished, NAD Neuro: AAOX4, CN II-XII intact, FTN intact, EOMI, PERRLA, 5/5 strength, SILT. No nystagmus, HINTS without saccade, no skew. HEENT: atraumatic, normocephalic Neck: trachea midline, supple CV: regular rate, regular rhythm, no murmurs, rubs, or gallops Pulm: CTA b/l, no wheezing Abd: soft, non-distended, non-tender MSK: full ROM, intact pulses Extr: no edema, no deformities Skin: warm, dry MDM: Concern for ACS v CHF exacerbation v posterior stroke v vertigo. "Room tilting" appears more central than peripheral considering lack of nystagmus and lack of association with head movement. - CBC, CMP - EKG, CXR - TSH - COVID - BNP - CT head - likely admit 01/09/20 03:15 EKG sinus with PVCs at 89 bpm, MO 202, QRS 154, QTc 506, LAD, LBBB, similar to prior. 01/09/20 04:32 K 6 with hemolysis, will get repeat BMP. CXR without acute abnormality. CBC wnl, BUN elevated, BNP 800, trop negative. 01/09/20 04:50 CT head without acute abnormality. Will admit for dizziness and chest pain. Past History - Medical History Allergies/Adverse Reactions: Allergies Allergy/AdvReac Type Severity Reaction Status Date / Time shellfish derived Allergy Verified 01/09/20 03:47 Home Medications: Ambulatory Orders Furosemide [Lasix] 80 mg PO DAILY 01/09/20 Levothyroxine [Synthroid -] 75 mcg PO DAILY 01/09/20 Metoprolol Succinate [Toprol Xl] 75 mg PO DAILY 01/09/20 Sacubitril/Valsartan [Entresto 24 mg-26 mg Tablet] 1 each PO DAILY 01/09/20 Spironolactone 25 mg PO DAILY 01/09/20 COPD: No GI Disorders: Yes (GERD) HTN: Yes Hypercholesterolemia: Yes Seizures: Yes Thyroid Disease: Yes (graves disease) - Immunization History Immunization Up to Date: No - Psycho-Social/Smoking History Smoking History: Never smoked Have you smoked in the past 12 months: No ED Treatment Course - LABORATORY CBC & Chemistry Diagram: 01/09/20 03:15 01/09/20 05:40 Discharge - Discharge Information Problems reviewed: Yes Clinical Impression/Diagnosis: ACS (acute coronary syndrome), Dizziness Condition: Unchanged/Unknown Disposition: ELOPED - Follow up/Referral - Patient Discharge Instructions - Post Discharge Activity
--- OUTSIDE RECORDS SUMMARY | 2020-01-09 03:27 | XMS ---
:1985 Author Organization [facility] Care Team Providers Name Role Phone Anette Finley Unavailable [facility], [facility] Unavailable Unavailable EMERGENCY SERVICE, X Unavailable Unavailable FRANKIE PRICE Unavailable Unavailable CINDI PAUL Unavailable Unavailable Re-disclosure Warning The records that you are about to access may contain information from federally- assisted alcohol or drug abuse programs. If such information is present, then the following federally mandated warning applies: This information has been disclosed to you from records protected by federal confidentiality rules (42 CFR part 2). The federal rules prohibit you from making any further disclosure of this information unless further disclosure is expressly permitted by the written consent of the person to whom it pertains or as otherwise permitted by 42 CFR part 2. A general authorization for the release of medical or other information is NOT sufficient for this purpose. The Federal rules restrict any use of the information to criminally investigate or prosecute any alcohol or drug abuse patient.The records that you are about to access may contain highly sensitive health information, the redisclosure of which is protected by Article 27-F of the [facility] Public Health law. If you continue you may haveaccess to information: Regarding HIV / AIDS; Provided by facilities licensed or operated by the [facility] Office of Mental Health; or Provided by the [facility] Office for People With Developmental Disabilities. If such information is present, then the following [facility] mandated warning applies: This information has been disclosed to you from confidential records which are protected by state law. State law prohibits you from making any further disclosure of this information without the specific written consent of the person to whom it pertains, or as otherwise permitted by law. Any unauthorized further disclosure in violation of state law may result in a fine or chcf sentence or both. A general authorization for the release of medical or other information is NOT sufficient authorization for further disclosure. Allergies and Adverse Reactions Type Description Substance Reaction Status Data Source(s ) Drug allergy shellfish Drug allergy vomiting Active eCW3 ([facility]) Food allergy Tomato Tomato [facility] Drug allergy Tomato Tomato [facility] Food allergy Peanut Peanut [facility] Drug allergy Peanut Peanut [facility] Food allergy avocado avocado Nausea [facility] Drug allergy avocado avocado Nausea [facility] Drug allergy haloperidol haloperidol [facility] Food allergy Shellfish Shellfish Anaphylaxis SV [facility] Drug allergy Ibuprofen Ibuprofen [facility] Drug allergy Lorazepam Lorazepam [facility] r[facility]ation Drug allergy Aspirin Aspirin [facility] r[facility] Drug allergy [facility] r[facility]ation Encounters Encounter Providers Location Date Indications Data Source(s ) Outpatient Attender: Anette 12/11/2019 [facility] Garrett Finley 03:16:03 PM [facility] EDT Patient admitted. Outpatient Attender: FRANKIE PRICE 12/09/2019 03:44:16 PM [facility] EDT [facility] Patient admitted. Inpatient Attender: BEVERLY 09/01/2019 DEPRESSION [facility] CINDIAdmitter: 04:25:00 PM EDT - [facility] CINDI PAUL 09/03/2019 [facility] 04:00:00 PM EDT DEPRESSION Patient admitted. Emergency Attender: BEVERLY 09/01/2019 01:08:00 PSYCH [facility] CINDIAttender: PM EDT [facility] EMERGENCY SERVICE, Corpor ation XAdmitter: CINDI PAUL PSYCH Outpatient Attender: [id number] 06/03/2019 12:22:41 PM [facility] ([facility]) Patient admitted. Outpatient [facility] 12/24/2018 12:00:00 AM eCW3 ([facility] A28 EDT - 12/24/2018 12:00:00 Health Care) AM EDT Medications Medication Brand Start Product Dose Route Administrative Pharmacy [facility] Indications Reaction Description Data Name Date Form Instructions Instructions Source(s) Ativan Ativan 2 mg UNK active Ativan [facility] (Lorazepam) (Loraz 2019 (Lorazepam) [place] O epam) 03:09: Oral 2 mg PO [facility] O 16 PM Care EDT Corporatio n Medication administered onsite Tylenol Tylenol 09/01/2019 650 UNK active Tylen ol [place] (Acetaminoph (Acetaminoph 02:58:01 PM mg (Acetaminophen) [facility] Oral 650 mg PO [facility] Medication administered onsite Ativan Ativan 09/01/2019 1 mg UNK active Ativan [place] (Lorazepam) O (Lorazepam) O 02:07:46 PM (Lorazepam) [facility] Oral 1 mg PO [facility] Medication administered onsite Methimazole 10 Tapazole 10 1.0 active T apazole eCW3 MG Oral Tablet MG {tablet_with_food} 10 MG ([place] [Tapazole] [place] Tapazole 10 MG [facility]) Furosemide 80 Furosemide completed [place] MG Oral Tablet [80 mg r ounty Furosemide [80 Tablet]: 1 Health mg Tablet]: 1 Tablet Oral Care Tablet Oral DAILY IN Nicky oratio DAILY IN MORNING n MORNING Methimazole 10 Methimazole completed [place] MG Oral Tablet [10 mg r ounty Methimazole [10 Tablet]: 1 Health mg Tablet]: 1 Tablet Oral Care Tablet Oral DAILY Corpora hugo DAILY n 24 HR [facility]op[facility] [25 mg]: r [facility] succinate 25 MG 1 Tablet Health Extended Oral DAILY Care Release Oral IN MORNING C orporatio Tablet n Metoprolol XL [25 mg]: 1 Tablet Oral DAILY IN MORNING Omeprazole 40 Omeprazole completed [place] MG Delayed [40 mg]: 1 r C ounty Release Oral Tablet Oral Health Capsule DAILY Care Omeprazole [40 Corpo ratio mg]: 1 Tablet n Oral DAILY sacubitril 24 Entresto completed [place] MG / valsartan (sacubitril- r County 26 MG Oral valsartan) [facility] Tablet Entresto [24 mg-26 mg Care (sacubitril-jacques Tablet]: 2 Corporatio sartan) [24 Tablet Oral n mg-26 mg 2 TIMES A Tablet]: 2 DAY Tablet Oral 2 TIMES A DAY Spironolactone Spironolacto completed [place] 25 MG Oral ne [25 mg r Co unty Tablet Tablet]: 1 Health Spironolactone Tablet Oral Care [25 mg Tablet]: DAILY Cor poratio 1 Tablet Oral n DAILY Divalproex Depakote 999 MG oral completed Dep akote [place] Sodium 125 MG r Coun ty Delayed Release [facility] Oral Tablet Care [Depakote] Corporati o n Insurance Providers Payer name Policy type Policy ID Covered Covered green party's Policy P addy / Coverage green party ID relationship to [place] [facility] type [place] UNK UNK UNK UNK UNK UNK 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 [id number] SP [id number] MEDICAID [id number] SP [id number] Problems, Conditions, and Diagnoses Code Display Name Description Problem Type Effective Data Sour ce(s) Dates [id number] Schizoaffective Schizoaffective Complaint 03/07/2017 [facility] disorder, bipolar disorder, bipolar 12:00:00 PM Hospital type (disorder) type EST [id number] Posttraumatic Posttraumatic Complaint 03/06/2017 [facility] stress [facility] stress disorder 12:00:00 PM Hos pital (disorder) EST Outreach Outreach Diagnosis 12/11/2019 [facility] 03:16:03 PM For [facility] Hospital Discharge Hospital Discharge Diagnosis 0 [facility] Appointment Appointment 03:44:16 PM For [facility] Z91.018 Allergy to other ALLERGY TO OTHER Diagnosis 09/03/2019 [facility] foods FOODS [facility]:00:00 [facility] Z88.8 Allergy status to ALLERGY STATUS TO Diagnosis 09/03/2019 [place] other drugs, OTH DRUG/MEDS/BIOL 04:00:00 PM [facility] medicaments and SUBST STATUS EDT [facility] biological [facility] substances status Z91.013 Allergy to seafood ALLERGY TO SEAFOOD Diagnosis 0 [place] 04:00:00 PM [facility] F17.210 Nicotine NICOTINE Diagnosis 09/03/2019 [place] dependence, DEPENDENCE, 04:00:00 PM [facility] cigarettes, CIGARETTES, EDT Care uncomplicated UNCOMPLICATED Corporat ion E07.9 Disorder of DISORDER OF Diagnosis 09/03/2019 [place] thyroid, THYROID, 04:00:00 PM [facility] unspecified UNSPECIFIED EDT Care Corporation K21.0 Gastro-esophageal GASTRO-ESOPHAGEAL Diagnosis 09/03/2019 [place] reflux disease with REFLUX DISEASE WITH 04:00:0 0 PM [facility] esophagitis ESOPHAGITIS EDT [facility] G40.89 Other seizures OTHER SEIZURES Diagnosis 09/03/2019 [place] 04:00:00 PM [facility] EDT [facility] I50.9 Heart failure, HEART FAILURE, Diagnosis 09/03/2019 [place] unspecified UNSPECIFIED 04:00:00 PM [facility] EDT [facility] U07.1 COVID-19 ACUTE COVID-19 ACUTE Diagnosis 09/03/2019 [facility] RESPIRATORY DISEASE RESPIRATORY DISEASE 04:00:0 0 PM [facility] EDT [facility] 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[place] personality PERSONALITY 04:00:00 PM [facility] disorder DISORDER EDT Care [facility] F25.1 Schizoaffective SCHIZOAFFECTIVE Diagnosis 09/03/2019 [place] master disorder, DISORDER, 04:00:00 PM [facility] depressive type DEPRESSIVE TYPE EDT [facility] F41.8 Other specified OTHER SPECIFIED Diagnosis 09/01/2019 [place] anxiety disorders ANXIETY DISORDERS 04:25:00 PM [facility] EDT [facility] 311 DEPRESSIVE DISORDER DEPRESSIVE DISORDER Diagnosis 000 [facility] NOT ELSEWHERE 10:15:00 AM Hospital CLASSIFIED EST Results ID Date Data Source [id number] 01/02/2020 12:30:00 AM EDT [facility] Name Value Range Interpretation Description Data Sup porting Code Source(s) Document(s ) 2018 Novel [facility] Coronavirus RNA Interpretation Unspecified Specimen Qualitative MARIVEL Probe Detection This lab was ordered by Jass Addison-[id number] and reported by Jass at [facility]. ID Date Data Source [id number] 12/01/2019 03:57:00 PM EDT [facility] Name Value Range Interpretation Description Data Sup porting Code Source(s) Document(s ) 2018 Novel [facility] Coronavirus RNA Interpretation Unspecified Specimen Qualitative MARIVEL Probe Detection This lab was ordered by Jass Addison-[id number] and reported by Jass at [facility]. ID Date Data Source [id number] 11/27/2019 11:17:00 PM EDT [facility] Name Value Range Interpretation Code Description Data Daisy rce(s) Supporting Document(s ) SARS-CoV-2 [facility] Ql MARIVEL+probe This lab was ordered by [facility] nd reported by [facility]. ID Date Data Source [id number] 11/22/2019 01:30:00 PM EDT [facility] Name Value Range Interpretation Description Data Sup porting Code Source(s) Document(s ) 2019 Novel [facility] Coronavirus RNA Interpretation Unspecified Specimen Qualitative MARIVEL Probe Detection This lab was ordered by [facility] Edgardo Addison-[id number] and reported by [facility] at [facility]. ID Date Data Source [id number] 11/05/2019 01:13:00 AM EDT [facility] Name Value Range Interpretation Description Data Sup porting Code Source(s) Document(s ) 2019 Novel [facility] Coronavirus RNA Interpretation Unspecified Specimen Qualitative MARIVEL Probe Detection This lab was ordered by [facility] kiana [facility] and reported by [facility] at [facility]. ID Date Data Source [id number] 09/02/2019 12:00:00 AM EDT [facility] Name Value Range Interpretation Code Description Data Daisy rce(s) Supporting Document(s ) 2019-nCoV [facility] RNA XXX MARIVEL+probe- Imp This lab was ordered by [facility] and reported by [employer] ID Date Data Source [id number] 09/01/2019 04:25:00 PM EDT [facility] [id number] Corporation Name Value Range Interpretation Description Data Sup porting Code Source(s) Document(s ) Chest (PACSIMAGE <td> [place] Portable 09/01/2019 [facility] ) Final 16:25</td><td> Care Result Chest Portable [facility] Name: CHANTELL </td><td><adeola De La Torre MRN: [id number] Sex: M styleCode="Giovanna : lics">(PACSIMA 1985 GE Location: M Admitting )</paragraph>< Physician: br/>
EMERGENCY Final Result SERVICE Requesting

Physician: Name: MARI ABDUL Exam:
CHEST PORTABLE 09/01/2019 Sex: M 16:43
EXAM: Chest : Portable 1 1985 view Location: M COMPARISON:Non
e Admitting INDICATION: Physician: Covid EMERGENCY FINDINGS: SERVICE LINES AND
TUBES: none. Requesting LUNGS AND Physician: PLEURA: Clear MARI PEACOCK lungs. The costophrenic

sulci are not Exam: CHEST blunted. PORTABLE HEART AND 09/01/2019 MEDIASTINUM: 16:43 Cardiac silhouette is

<br/ enlarged with > EXAM: borderline Chest Portable enlarged anthony 1 view which may be

vascular. No pulmonary COMPARISON:Non venous e congestion..

BONES AND SOFT INDICATION: TISSUES: No Covid acute

abnormality. FINDINGS: IMPRESSION: Cardiac

silhouette is LINES AND enlarged. No TUBES: none. infiltrate.
LUNGS AND Resident PLEURA: Clear Radiologist: lungs. The Attending costophrenic Radiologist: sulci are not Brooke Dyer MD
Finalizing blunted. Radiologist:
Brooke Dyer HEART AND MEDIASTINUM: Transcribed Cardiac Date: silhouette is 09/01/2019 enlarged with 17:02 borderline Finalized
Date: enlarged 09/01/2019 anthony which may 17:03 be vascular. No pulmonary venous congestion..
BONES AND SOFT TISSUES: No acute abnormality.

IMPRESSION:

Cardiac silhouette is enlarged.
No infiltrate.

<br/ >

Resident Radiologist:
Attending Radiologist: Brooke Dyer MD
Finalizing Radiologist: Brooke Dyer MD
Transcribed Date: 09/01/2019 17:02
Finalized Date: 09/01/2019 17:03

</td > ID Date Data Source [id number] 09/01/2019 02:15:00 PM EDT [facility] [id number] Corporation Name Value Range Interpretation Description Data Sup porting Code Source(s) Document(s ) Leukocytes 5.0 k/mm3 4.5-10 <td> [place] [#/volume] in .8 09/01/2019 [facility] Blood by k/mm3 14:15</td><td> Health Care Automated count WBC </td><td> Corporati on 5.0
(4.5-10.8) k/mm3 </td> Hemoglobin 14.9 g/dL 12.3-1 <td> [place] [Mass/volume] in 6.0 09/01/2019 [facility] Blood g/dL 14:15</td><td> Health Care HGB </td><td> [facility] 14.9
(12.3-16.0) g/dL </td> Erythrocytes 4.76 m/mm3 4.20-5 <td> [place] [#/volume] in .50 09/01/2019 [facility] Blood m/mm3 14:15</td><td> Health Care RBC </td><td> [facility] 4.76
(4.20-5.50) m/mm3 </td> Hematocrit 44.1 % 38.0-4 <td> [place] [Volume 7.0 % 09/01/2019 [facility] Fraction] of 14:15</td><td> Health Care Blood by HCT </td><td> [facility] Automated count 44.1
(38.0-47.0) % </td> Erythrocyte mean 92.6 fL 80.0-9 <td> [place] corpuscular 5.0 fL 09/01/2019 [facility] volume [Entitic 14:15</td><td> Health Ca re volume] by MCV </td><td> [facility] Automated count 92.6
(80.0-95.0) fL </td> Erythrocyte 13.2 % 11.5-1 <td> [place] distribution 4.5 % 09/01/2019 [facility] width [Entitic 14:15</td><td> Health Car e volume] by RDW </td><td> [facility] Automated count 13.2
(11.5-14.5) % </td> Erythrocyte mean 33.8 % 32.0-3 <td> [place] corpuscular 6.0 % 09/01/2019 [facility] hemoglobin 14:15</td><td> Health Care concentration [facility] [Mass/volume] in </td><td> Blood from [place] by Automated 33.8 count
(32.0-36.0) % </td> Erythrocyte mean 31.3 pg 27.0-3 <td> [place] corpuscular 1.5 pg 09/01/2019 [facility] hemoglobin 14:15</td><td> Health Care [Entitic mass] MCH </td><td> Corporatio n by Automated count 31.3
(27.0-31.5) pg </td> Platelets 232 k/mm3 160-41 <td> [place] [#/volume] in 0 09/01/2019 [facility] Blood by k/mm3 14:15</td><td> Health Care Automated count Platelet Count Corporati on </td><td> 232
(160-410) k/mm3 </td> Lymphocytes 38.2 % 21.0-5 <td> [place] [#/volume] in 5.0 % 09/01/2019 [facility] Blood by 14:15</td><td> Health Care Automated count Lymphocytes Corporation </td><td> 38.2
(21.0-55.0) % </td> Platelet mean 10.5 fL 9.8-12 <td> [place] volume [Entitic .8 fL 09/01/2019 [facility] volume] in Blood 14:15</td><td> Health C are by Automated MPV </td><td> Corporation count 10.5
(9.8-12.8) fL </td> Monocytes/Leukoc 10.9 % 0.0-11 <td> [place] ytes [Pure .0 % 09/01/2019 [facility] number fraction] 14:15</td><td> Health C are in Blood by Monocytes. Corporation Automated count </td><td> 10.9
(0.0-11.0) % </td> Basophils+Eosino 2.8 % 0.0-5. <td> [place] phils+Monocytes 0 % 09/01/2019 [facility] [#/volume] in 14:15</td><td> Health Care Blood by Eosinophils [facility] Automated count </td><td> 2.8
(0.0-5.0) % </td> Immature 0.0 % 0.0-0. <td> [place] granulocytes/100 5 % 09/01/2019 [facility] leukocytes in 14:15</td><td> Health Care Blood by IG% </td><td> Corporation Automated count 0.0
(0.0-0.5) %
The IG fraction represents metamyelocytes , myelocytes and/or
promyelocytes and is only reported as part of the automated
differential when found at a percentage of less than 6.
If higher than 6%, a manual differential will be performed.

(0.0-0.5) % </td> Basophils 0.8 % 0.0-2. <td> [place] [#/volume] in 0 % 09/01/2019 [facility] Blood by 14:15</td><td> Health Care Automated count Basophils Corporation </td><td> 0.8
(0.0-2.0) % </td> Neutrophils [#] 47.3 % 32.0-7 <td> [place] in Body fluid by 0.0 % 09/01/2019 [facility] Manual count 14:15</td><td> Health Care Neutrophils Corporation </td><td> 47.3
(32.0-70.0) % </td> Sodium 135 mEq/L 135-14 <td> [place] [Moles/volume] 5 09/01/2019 [facility] in Serum or mEq/L 14:15</td><td> Health Care Plasma Sodium-Serum [facility] </td><td> 135
(135-145) mEq/L </td> Glucose 90 mg/dL 70-105 <td> [place] [Mass/volume] in mg/dL 09/01/2019 [facility] Blood 14:15</td><td> Health Care Glucose-Serum [facility] </td><td> 90
(70-105) mg/dL </td> Potassium 4.8 mEq/L 3.5-5. <td> [place] [Moles/volume] 1 09/01/2019 [facility] in Serum or mEq/L 14:15</td><td> Health Care Plasma Potassium-Seru [facility] m </td><td> 4.8
(3.5-5.1) mEq/L </td> Carbon dioxide, 27 mEq/L 22-30 <td> [place] total mEq/L 09/01/2019 [facility] [Moles/volume] 14:15</td><td> Health Car e in Serum or CO2 </td><td> Corporation Plasma 27
(22-30) mEq/L </td> Chloride 100 mEq/L 98-107 <td> [place] [Moles/volume] mEq/L 09/01/2019 [facility] in Serum or 14:15</td><td> Health Care Plasma Chloride [facility] </td><td> 100
(98-107) mEq/L </td> Creatinine 1.19 mg/dL 0.72-1 <td> [place] [Moles/volume] .25 09/01/2019 [facility] in Serum or mg/dL 14:15</td><td> Health Care Plasma Creatinine. [facility] </td><td> 1.19
(0.72-1.25) mg/dL </td> Aspartate 23 U/L 4-35 <td> [place] aminotransferase U/L 09/01/2019 [facility] [Enzymatic 14:15</td><td> Health Care activity/volume] AST (SGOT) [facility] in Serum or </td><td> Plasma 23
(4-35) U/L </td> Urea nitrogen 25 mg/dL 6-22 <td> [place] [Mass/volume] in mg/dL 09/01/2019 [facility] Blood 14:15</td><td> Health Care BUN Corporation </td><td><para graph styleCode="Ary d"> 25 H </paragraph><b r/> (6-22) mg/dL </td> Alanine 6 U/L 6-55 <td> [place] aminotransferase U/L 09/01/2019 [facility] [Enzymatic 14:15</td><td> Health Care activity/volume] ALT (SGPT) Corporation in Serum or </td><td> Plasma 6
(6-55) U/L </td> Bilirubin.total 0.6 mg/dL 0.2-1. <td> [place] [Mass/volume] in 3 09/01/2019 [facility] Blood mg/dL 14:15</td><td> Health Care Bilirubin - Corporation Total </td><td> 0.6
(0.2-1.3) mg/dL </td> Albumin 4.7 g/dL 3.4-4. <td> [place] [Mass/volume] in 8 g/dL 09/01/2019 [facility] Serum or Plasma 14:15</td><td> Health Ca re Albumin Corporation </td><td> 4.7
(3.4-4.8) g/dL </td> Calcium 9.5 mg/dL 8.6-10 <td> [place] [Mass/volume] in .2 09/01/2019 [facility] Blood mg/dL 14:15</td><td> Health Care Calcium Corporation </td><td> 9.5
(8.6-10.2) mg/dL </td> Proteins - Total 8.1 g/dL 6.4-8. <td> [place] 3 g/dL 09/01/2019 [facility] 14:15</td><td> Health Care Proteins - Corporation Total </td><td> 8.1
(6.4-8.3) g/dL </td> Globulin 3.4 gm/dL 2.9-4. <td> [place] [Mass/volume] in 0 09/01/2019 [facility] Serum gm/dL 14:15</td><td> Health Care Globulin Corporation </td><td> 3.4
(2.9-4.0) gm/dL </td> Hemolysis index No <td> [place] of Serum or Hemolysis 09/01/2019 [facility] Plasma 14:15</td><td> Health Care Hemolysis Corporation Index </td><td> No Hemolysis
</td> Anion gap in 8 mEq/L 7-13 <td> [place] Serum or Plasma mEq/L 09/01/2019 [facility] 14:15</td><td> Health Care Anion Gap [facility] </td><td> 8
(7-13) mEq/L </td> Lipemic index of No Lipemia <td> [place] Serum or Plasma 09/01/2019 [facility] 14:15</td><td> Health Care Lipemia Index [facility] </td><td> No Lipemia
</td> Icteric index of Not <td> [place] Serum or Plasma Icteric 09/01/2019 [facility] 14:15</td><td> Health Care Icteric Index [facility] </td><td> Not Icteric
</td> Cholesterol in 59 mg/dL >60 <td> [place] HDL mg/dL 09/02/2019 [facility] [Mass/volume] in 09:21</td><td> Health C are Serum or Plasma HDL [facility] Cholesterol </td><td> 59
(>60) mg/dL </td> Hemoglobin A1C 5.7 % 4.0-5. <td> [place] 6 % 09/02/2019 [facility] 09:21</td><td> Health Care Hemoglobin Corporation A1C </td><td><para graph styleCode="Ary d"> 5.7 H </paragraph><b r/> (4.0-5.6) %
Increased risk for diabetes mellitus is seen in patients with HgA1C values
between 5.7-6.4%. Values > or = 6.5% are considered diagnostic of diabetes
mellitus.
Hemolytic anemias, hemoglobinopat hies, or recent transfusion may impact
HbA1c results. Clinical correlation is recommended.
=====
ESTIMATED AVERAGE GLUCOSE (eAG)
-----
RELATIONSHIP BETWEEN A1C AND eAG
=====
A1C(%) eAG(mg/dL)
6 126
7 154
8 183
9 212
10 -240
11 -269
12 -298
Source: Adapted from [place] [employer]. Standards of medical
care in diabetes-2014. Diabetes Care.2014;37(S upp 1):S14-S80, table 8.

(4.0-5.6) % </td> Cholesterol 227 mg/dL 125-24 <td> [place] [Moles/volume] 0 09/02/2019 [place] in Serum or mg/dL 09:21</td><td> [facility] Plasma Cholesterol [facility] </td><td> 227
(125-240) mg/dL </td> Cholesterol in 160 mg/dL <150 <td> [place] LDL mg/dL 09/02/2019 [facility] [Mass/volume] in 09:21</td><td> Health C are Serum or Plasma LDL [facility] Cholesterol </td><td><para graph styleCode="Ary d"> 160 * AB </paragraph><b r/> (<150) mg/dL </td> Triglyceride 41 mg/dL 30-200 <td> [place] [Mass/volume] in mg/dL 09/02/2019 [facility] Serum or Plasma 09:21</td><td> Health Ca re Triglyceride Corporation </td><td> 41
(30-200) mg/dL </td> ID Date Data Source [id number] 08/27/2019 03:53:00 PM EDT [facility] Name Value Range Interpretation Code Description Data Daisy rce(s) Supporting Document(s ) SARS-CoV-2 [facility] RNA [facility] Ql MARIVEL+probe This lab was ordered by [facility] nd reported by [facility]. ID Date Data Source [id number] 07/07/2019 04:05:00 AM EDT [facility] Name Value Range Interpretation Description Data Sup porting Code Source(s) Document(s ) [facility] coronavirus 2 RNA [Presence] in Respiratory specimen by MARIVEL with probe detection This lab was ordered by [facility] and reported by [facility]. ID Date Data Source [id number] 07/05/2019 10:00:00 AM EDT [facility] Name Value Range Interpretation Description Data Sup porting Code Source(s) Document(s ) SARS [facility] coronavirus 2 RNA [Presence] in Respiratory specimen by MARIVEL with probe detection This lab was ordered by [facility] and reported by [facility]. ID Date Data Source [id number] 07/03/2019 04:20:00 PM EDT [facility] Name Value Range Interpretation Description Data Sup porting Code Source(s) Document(s ) [facility] coronavirus 2 RNA [Presence] in Respiratory specimen by MARIVEL with probe detection This lab was ordered by [facility] and reported by [facility]. ID Date Data Source [id number] 06/30/2019 06:00:00 PM EDT [facility] Name Value Range Interpretation Description Data Sup porting Code Source(s) Document(s ) [facility] coronavirus 2 RNA [Presence] in Respiratory specimen by MARIVEL with probe detection This lab was ordered by [facility] and reported by [facility]. ID Date Data Source [id number] 06/30/2019 06:00:00 PM EDT [facility] Name Value Range Interpretation Description Data Sup porting Code Source(s) Document(s ) [facility] coronavirus 2 RNA [Presence] in Respiratory specimen by MARIVEL with probe detection This lab was ordered by [facility] and reported by [facility]. Procedure Social History Code Duration Value Status Description Data Source(s ) Smoking 12/24/2018 Never Smoker completed Never Smoker eCW3 ([facility] [place] 12:00:00 AM EDT [facility]) Smoking Unknown if ever completed Unknown if ever [facility] smoked smoked [facility] Never Smoker completed Never Smoker eCW3 ([facility]) Smoking Unknown if ever completed Unknown if ever [facility] smoked [employer] Vital Signs ID Date Data Source UNK Name Value Range Interpretation Code Description Data Source(s) Diastolic blood 72 mm[Hg] 72 mm[Hg] eCW3 ([facility]) Systolic blood 106 mm[Hg] 106 mm[Hg] eCW3 ([facility]) Body temperature 97.9 [degF] 97.9 [degF] eCW3 ( [facility]) Body mass index 25.36 kg/m2 25.36 kg/m2 eCW3 ([facility] udson (BMI) [Ratio] [facility]) Body weight 187 [lb_av] 187 [lb_av] eCW3 ([facility]) Body height [in_i] eCW3 ([facility]) Diastolic blood 80 mmHg 80 mmHg [facility] Systolic blood 130 mmHg 130 mmHg [facility] Heart rate 122 bpm 122 bpm [facility] Diastolic blood 85 mmHg 85 mmHg [facility] Systolic blood 111 mmHg 111 mmHg [facility] Respiratory rate 18 bpm 18 bpm [facility] Heart rate 111 bpm 111 bpm [facility] Respiratory rate 19 bpm 19 bpm [facility] Diastolic blood 76 mmHg 76 mmHg [facility] Systolic blood 124 mmHg 124 mmHg [facility] Heart rate 122 bpm 122 bpm [facility] No Vital Sign [facility] for this episode. Care Co rporation Patient Treatment Plan of Care Planned Activity Planned Date Details Description Data Source (s) Ativan (Lorazepam) O 09/01/2019 03:09:16 [facility] Tylenol (Acetaminoph 09/01/2019 02:58:01 [facility] Ativan (Lorazepam) O 09/01/2019 02:07:46 [facility]
[2020-01-09 03:53] VITALS: BMI 26.3
[2020-01-09 03:53] LABS: BASO % 0.8 % (0-2.0); EOS % 1.7 % (0-4.5); HEMATOCRIT 44.2 % (35.4-49); LYMPH % 36.3 % (8-40); MCH 32.5 pg (25.7-33.7); MCHC 33.9 g/dl (32.0-35.9); MEAN CELL VOLUME 95.9 fl (80-96); MEAN PLT VOLUME 9.8 fl (7.5-11.1); MONO % 11.1 % (3.8-10.2); NEUT % 50.1 % (42.8-82.8); PLATELET COUNT 169 K/MM3 (134-434); RBC 4.61 M/mm3 (4.00-5.60); RDW 14.8 % (11.9-15.9); WHITE BLOOD COUNT 6.6 K/mm3 (4.0-10.0)
[2020-01-09 04:03] LABS: INR 1.15 (0.83-1.09); PROTHROMBIN TIME (PATIENT) 13.6 SEC (9.7-13.0)
[2020-01-09 04:06] LABS: ACTIVATED PTT 26.6 SECONDS (25.2-36.5)
[2020-01-09 04:27] LABS: ALBUMIN 4.5 g/dl (3.4-5.0); ALK PHOS 67 U/L (45-117); ANION GAP 6 MMOL/L (8-16); BLOOD UREA NITROGEN 24.2 mg/dL (7-18); CHLORIDE 102 mmol/L (98-107); CO2 30 mmol/L (21-32); CREATININE 1.2 mg/dL (0.55-1.3); GLUCOSE,RANDOM 84 mg/dL (74-106); N-TERMINAL BNP 865.4 pg/ml (5-125); SGOT/AST 44 U/L (15-37); SGPT/ALT 16 U/L (13-61); SODIUM 138 mmol/L (136-145)
--- NOTE | 2020-01-09 05:10 | PDOC ---
Attending Attestation - Resident Resident Name: YingMason valerio - ED Attending Attestation I have performed the following: I have examined & evaluated the patient, The case was reviewed & discussed with the resident, I agree w/resident's findings & plan, Exceptions are as noted - HPI HPI: 01/09/20 06:25 See resident HPI - Physicial Exam PE: 01/09/20 06:25 Agree with documented exam - Medical Decision Making 01/09/20 06:25 34M with HF 2/2 thyrotoxicosis, supposed to be using LifeVest but not compliant, internal defib placement scheduled in 2 months CP and persistent sensation of dysequilibrium ACS r/o, arrythmia? electrolyte derangement, vertigo f/u labs, ekg, cxr, ct h dispo per clinical course, likely admit Discharge - Discharge Information Problems reviewed: Yes Clinical Impression/Diagnosis: ACS (acute coronary syndrome), Dizziness Condition: Unchanged/Unknown Disposition: ELOPED - Follow up/Referral - Patient Discharge Instructions - Post Discharge Activity
--- NOTE | 2020-01-09 05:22 | HP ---
CHIEF COMPLAINT: Chest pain (L side) PCP: HISTORY OF PRESENT ILLNESS: Mr. Yun is a 34 year old man with PMH of Graves' disease, and Systolic CHF thyrotoxicosis Echo in 2019 = EF of 15-20% with global hypokenisis of the left ventricle, epilepsy (not on antiepiliptics), and anxiety, who presents to the ER for evaluation of chest pain for the past week. Patient states the pain is a pressure sensation on the left side of his chest. THe patient rates the pain as a 7/10 and does not radiate anywhere. He denies any shortness of breath or cough. No association with activity. Further complains of intermittent "room tilting" sensation over the past 1.5 weeks, lasting minutes to seconds at a time, without association with head movement. Recent Travel: denies PAST MEDICAL HISTORY: as above PAST SURGICAL HISTORY: denies Social History: Smoking: denies Alcohol: denies Drugs: denies Allergies shellfish derived Allergy (Verified 01/09/20 03:47) HOME MEDICATIONS: Home Medications Medication Instructions Recorded Furosemide [Lasix] 80 mg PO DAILY 01/09/20 Levothyroxine [Synthroid -] 75 mcg PO DAILY 01/09/20 Metoprolol Succinate [Toprol Xl] 75 mg PO DAILY 01/09/20 Sacubitril/Valsartan [Entresto 24 1 each PO DAILY 01/09/20 mg-26 mg Tablet] Spironolactone 25 mg PO DAILY 01/09/20 REVIEW OF SYSTEMS CONSTITUTIONAL: Absent: fever, chills, diaphoresis, generalized weakness, malaise, loss of appetite, weight change CARDIOVASCULAR: Absent: chest pain, syncope, palpitations, irregular heart rate, ligh theadedness, peripheral edema RESPIRATORY: Absent: cough, shortness of breath, dyspnea with exertion, orthopnea, wheezing, stridor, hemoptysis GASTROINTESTINAL: Absent: abdominal pain, abdominal distension, nausea, vomiting, diarrhea, constipation, melena, hematochezia PHYSICAL EXAMINATION Vital Signs - 24 hr 01/09/20 01/09/20 03:28 03:39 Temperature 97.8 F Pulse Rate 91 H Respiratory 18 Rate Blood Pressure 114/78 O2 Sat by Pulse 100 Oximetry (%) GENERAL: Awake, alert, and fully oriented, in no acute distress. HEAD: Normal with no signs of trauma. LUNGS: Breath sounds equal, clear to auscultation bilaterally. No wheezes, and no crackles. No accessory muscle use. HEART: Regular rate and rhythm, normal S1 and S2 without murmur, rub or gallop. ABDOMEN: Soft, nontender, not distended, normoactive bowel sounds, no guarding, no rebound, no masses. No hepatomegaly or splenomegaly. UPPER EXTREMITIES: 2+ pulses, warm, well-perfused. No cyanosis. No clubbing. No peripheral edema. LOWER EXTREMITIES: 2+ pulses, warm, well-perfused. No calf tenderness. No peripheral edema. Laboratory Results - last 24 hr 01/09/20 01/09/20 01/09/20 03:15 03:15 03:15 WBC 6.6 RBC 4.61 Hgb 15.0 Hct 44.2 D MCV 95.9 MCH 32.5 MCHC 33.9 RDW 14.8 Plt Count 169 MPV 9.8 Absolute Neuts (auto) 3.3 Neutrophils % 50.1 Lymphocytes % 36.3 Monocytes % 11.1 H Eosinophils % 1.7 Basophils % 0.8 Nucleated RBC % 0 PT with INR 13.60 H INR 1.15 H PTT (Actin FS) 26.6 Sodium 138 Potassium 6.0 H Chloride 102 Carbon Dioxide 30 Anion Gap 6 L BUN 24.2 H Creatinine 1.2 Est GFR (CKD-EPI)AfAm 89.62 Est GFR (CKD-EPI)NonAf 77.33 Random Glucose 84 Calcium 9.0 AST 44 H ALT 16 Alkaline Phosphatase 67 Creatine Kinase 400 H Creatine Kinase Index 0.5 CK-MB (CK-2) 2.0 Troponin I < 0.02 B-Natriuretic Peptide 865.4 H Total Protein 8.0 Albumin 4.5 ASSESSMENT/PLAN: Mr. Yun is a 34 year old man with PMH of Graves' disease, Epilepsy, Anxiety and Systolic CHF thyrotoxicosis, epilepsy (not on antiepiliptics), and anxiety, who presents to the ER for evaluation of chest pain and dizziness for the past week. #ACS r/o tele repeat EKG follow up on second trop echo lipid profile consult cardiology - Dr. Morales - appreciate the recommendations #dizziness history of hitting his head playing football- diagnosed with vertigo in the past possible relation to reduced ejection fraction CT head negative for acute cranial pathology UA #FEN Regular diet #DVTppx 40mg sq lovenox Family Medical History Family History: As Documented Visit type - Emergency Visit Emergency Visit: Yes Care time: The patient presented to the Emergency Department on the above date and was hospitalized for further evaluation of their emergent condition. - New Patient This patient is new to me today: Yes Date on this admission: 01/09/20 - Critical Care Critical Care patient: No ATTENDING PHYSICIAN STATEMENT I saw and evaluated the patient. I reviewed the resident's note and discussed the case with the resident. I agree with the resident's findings and plan as documented. SUBJECTIVE: OBJECTIVE: ASSESSMENT AND PLAN:
--- NOTE | 2020-01-09 05:23 | PN ---
Teaching Attending Note Name of Resident: Sunday Layton ATTENDING PHYSICIAN STATEMENT I saw and evaluated the patient. I reviewed the resident's note and discussed the case with the resident. I agree with the resident's findings and plan as documented. SUBJECTIVE: Patient is a 34 year old man with a PMH of Grave's disease, HFrEF (EF 15-20% - due to thyrotoxicosis), Unspecified personality disorder, GERD, Epilepsy (not on antiepiliptics) and Anxiety who presents to the ER with chest pain for 5 to 7 days. States that he has separate left sided 6/10 sharp non-radiating chest pain and a 7/10 left chest pressure, each of which are intermittent, lasting seconds to minutes each time. There is no associated SOB, nausea, vomiting or diapho resis. The pain is has no association with activity. Further complains of intermittent "room tilting" sensation over the past 1.5 weeks, lasting minutes to seconds at a time, without association with head movement. Has never had this type of symptom before. He is supposed to wear LifeVest and discussed AICD options with Dr. Bourne. Lives in [place] and follows with [facility] and reports an ECHO last week showed LVEF of 30%. Scheduled for ICD placement in 8 weeks. Denies alcohol, tobacco or illicit drug use. No sick contacts or recent travels. Family history of DM in mother. OBJECTIVE: Alert Vital Signs Period Temp Pulse Resp BP Sys/Hicks Pulse Ox Last 24 Hr 97.8 F 91 18 114/78 100 HEENT: No Jaundice, eye redness or discharge, PERRLA, EOMI. Normocephalic, atraumatic. External ears are normal and hearing is grossly intact. No nasal discharge. Neck: Supple, nontender. No palpable adenopathy or thyromegaly. No JVD Chest: Good effort. Clear to auscultation and percussion. Heart: Regular. No S3, rub or murmur Abdomen: Not distended, soft, nontender and no HSM. No rebound or guarding. Normal bowel sounds. Ext: Peripheral pulses intact. No leg edema. Skin: Warm and dry. No petechiae, rash or ecchymosis. Neuro: Alert. Oriented x3. CN 2-12 grossly intact. Sensation grossly intact in all four extremities and DTR are symmetric. Psych: Appropriate mood and affect. Good insight. Home Medications Medication Instructions Recorded Furosemide [Lasix] 80 mg PO DAILY 01/09/20 Levothyroxine [Synthroid -] 75 mcg PO DAILY 01/09/20 Metoprolol Succinate [Toprol Xl] 75 mg PO DAILY 01/09/20 Sacubitril/Valsartan [Entresto 24 1 each PO DAILY 01/09/20 mg-26 mg Tablet] Spironolactone 25 mg PO DAILY 01/09/20 Abnormal Lab Results 01/09/20 01/09/20 01/09/20 03:15 03:15 03:15 Monocytes % 11.1 H PT with INR 13.60 H INR 1.15 H Potassium 6.0 H Anion Gap 6 L BUN 24.2 H AST 44 H Creatine Kinase 400 H B-Natriuretic Peptide 865.4 H ASSESSMENT AND PLAN: 1. Chest pain/Dizziness - Etiology chest pain is unclear. Reports a recent cardiac catheterisation at [facility] but does not remember the results. Will strive to get his records from [facility] during the day. Dizziness may be due to his very poor LV function and/or effects of antihypertensives and diuretics. No acute abnormality on CXR. No evidence of acute intracranial pathology on noncontrast head CT scan. Viral testing for COVID-19 ordered and patient placed on airborne, droplet and contact isolation. TSH pending. EKG shows NSR at 86/minute, PVCs, LAD, LBBB and QTc 506 with no significant acute ischemic ST-T wave changes. Not significantly changed compared to prior EKG. Initial troponin is negative. Will avoid drugs that may prolong QTc. Will admit to telemetry, trend troponin, repeat EKG, get ECHO, fasting lipids, urinalysis, do neurochecks and implement fall precautions. Consult Cardiology and Neurology. Will continue comprehensive care for all of patients comorbid conditions. 2. Hypertension Will restart suitable outpatient antihypertensive drugs when clinically appropriate. Subsequently, will revise regimen to ensure [id number] excellent BP control. Patient counseled on the injurious effects of uncontrolled hypertension. Nonpharmacologic measures to control hypertension like weight loss, salt restriction and exercise stressed. Importance of adherence to treatment regimen and attainment of normotension emphasized. 3. DVT prophylaxis - Lovenox 40 mg SQ q 24 hours. 4. Advance directives - Full code
--- OUTSIDE RECORDS SUMMARY | 2020-01-09 06:07 | XMS ---
:1985 Author Organization [facility] Care Team Providers Name Role Phone Anette Finley Unavailable [facility] Unavailable Unavailable EMERGENCY SERVICE, X Unavailable Unavailable FRANKIE PRICE Unavailable Unavailable BERENSON, CINDI Unavailable Unavailable Re-disclosure Warning The records that [...] is protected by Article 27-F of the [facility] Public Health law. If you continue you may haveaccess to information: Regarding HIV / AIDS; Provided by facilities licensed or operated by the [facility] Office of Mental Health; or Provided by the [facility] Office for People With Developmental Disabilities. If such information is present, then the following [facility] mandated warning applies: This information has [...] law may result in a fine or detention sentence or both. A general authorization for the release of medical or other information is NOT sufficient authorization for further disclosure. Allergies and Adverse Reactions Type Description Substance Reaction Status Data Source(s ) Drug allergy shellfish Drug allergy vomiting Active eCW3 ([facility]) Food allergy Tomato Tomato [facility] Drug allergy Tomato Tomato [facility] Food allergy Peanut Peanut [facility] Drug allergy Peanut Peanut [facility] Food allergy avocado avocado Nausea [facility] rporation Drug allergy avocado avocado Nausea [facility] rporation Drug allergy haloperidol haloperidol [facility] rporation Food allergy Shellfish Shellfish Anaphylaxis SV [facility] Drug allergy Ibuprofen Ibuprofen [facility] rporation Drug allergy Lorazepam Lorazepam [facility] rporation Drug allergy Aspirin Aspirin [facility]ation Drug allergy [place] [facility] rporation Encounters Encounter Providers Location Date Indications Data Source(s ) Outpatient Attender: Anette 12/11/2019 [facility] Garrett Finley 03:16:03 PM [facility] EDT Patient admitted. Outpatient Attender: FRANKIE PRICE 12/09/2019 03:44:16 PM [facility] EDT [facility] Patient admitted. Inpatient Attender: BEVERLY 09/01/2019 DEPRESSION [facility] CINDIAdmitter: 04:25:00 PM EDT - Health Care CINDI PAUL 09/03/2019 [facility] 04:00:00 PM EDT DEPRESSION Patient admitted. Emergency Attender: BEVERLY 09/01/2019 01:08:00 PSYCH [facility] CINDIAttender: PM EDT [facility] EMERGENCY SERVICE, Corpor ation XAdmitter: CINDI PAUL PSYCH Outpatient Attender: [id number] 06/03/2019 12:22:41 PM [facility]SI ([facility]) Patient admitted. Outpatient [facility] 12/24/2018 12:00:00 AM eCW3 ([facility] A28 EDT - 12/24/2018 12:00:00 Health Care) AM EDT Medications Medication Brand Start Product Dose Route Administrative Pharmacy [facility] Indications Reaction Description Data Name Date Form Instructions Instructions Source(s) Ativan Ativan 2 mg UNK active Ativan [facility] (Lorazepam) (Loraz 2019 (Lorazepam) [place] O epam) 03:09: Oral 2 mg PO [facility] O 16 PM Care EDT Corporatio n Medication administered onsite Tylenol Tylenol 09/01/2019 650 UNK active Tylen ol [place] (Acetaminoph (Acetaminoph 02:58:01 PM mg (Acetaminophen) [facility] mg [facility] Medication administered onsite Ativan Ativan 09/01/2019 1 mg UNK active Ativan [place] (Lorazepam) O (Lorazepam) O 02:07:46 PM (Lorazepam) [facility] Oral 1 mg PO [facility] Medication administered onsite Methimazole 10 Tapazole 10 1.0 active T apazole eCW3 MG Oral Tablet MG {tablet_with_food} 10 MG ([place] [Tapazole] [place] Tapazole [address] [facility]) Furosemide 80 Furosemide completed [place] MG Oral [...] hugo DAILY n 24 HR Metoprolol completed [facility] tcheste metoprolol XL [25 mg]: r [facility] succinate 25 MG 1 Tablet [...] (sacubitril- [place] County 26 MG Oral valsartan) [facility] Tablet Entresto [24 mg-26 mg Care (sacubitril-jacques [...] 125 MG r Coun ty Delayed Release Heal th Oral Tablet Care [Depakote] Corporati o n Insurance Providers Payer name Policy type Policy ID Covered Covered democrat's Policy P addy / Coverage democrat ID relationship to [place] [facility] ormation type [place] UNK UNK 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 [id number] SP [id number] MEDICAID [id number] SP [id number] Problems, Conditions, and Diagnoses Code Display Name Description Problem Type Effective Data Sour ce(s) Dates [id number] Schizoaffective Schizoaffective Complaint 03/07/2017 [facility] disorder, bipolar disorder, bipolar 12:00:00 PM Hospital type (disorder) type EST [id number] Posttraumatic Posttraumatic Complaint 03/06/2017 [facility] stress [facility] stress disorder 12:00:00 PM Hos pital (disorder) EST Outreach Outreach Diagnosis 12/11/2019 [facility] 03:16:03 PM For [facility] Hospital Discharge Hospital Discharge Diagnosis 0 [facility] Appointment Appointment 03:44:16 PM For [facility] Z91.018 Allergy to other ALLERGY TO OTHER Diagnosis 09/03/2019 [facility] foods FOODS 04:00:00 [facility] Lexy Z88.8 Allergy status to ALLERGY STATUS TO Diagnosis 09/03/2019 [place] other drugs, OTH DRUG/MEDS/BIOL 04:00:00 PM [facility] medicaments and SUBST STATUS EDT [facility] [employer] substances status Z91.013 Allergy to seafood ALLERGY TO SEAFOOD Diagnosis 0 [place] 04:00:00 PM [facility] F17.210 Nicotine NICOTINE Diagnosis 09/03/2019 [place] dependence, DEPENDENCE, 04:00:00 PM [facility] cigarettes, CIGARETTES, EDT Care uncomplicated UNCOMPLICATED Corporat ion E07.9 Disorder of DISORDER OF Diagnosis 09/03/2019 [place] thyroid, THYROID, 04:00:00 PM [facility] unspecified UNSPECIFIED EDT Care [facility] K21.0 Gastro-esophageal GASTRO-ESOPHAGEAL Diagnosis 09/03/2019 [place] reflux disease with REFLUX DISEASE WITH 04:00:0 0 PM [facility] esophagitis ESOPHAGITIS EDT [facility] G40.89 Other seizures OTHER SEIZURES Diagnosis 09/03/2019 [place] 04:00:00 PM [facility] EDT [facility] I50.9 Heart failure, HEART FAILURE, Diagnosis 09/03/2019 [place] unspecified UNSPECIFIED 04:00:00 PM [facility] EDT [facility] U07.1 COVID-19 ACUTE COVID-19 ACUTE Diagnosis 09/03/2019 [facility] RESPIRATORY DISEASE RESPIRATORY DISEASE 04:00:0 0 PM [facility] EDT [facility] 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[place] personality PERSONALITY 04:00:00 PM [facility] disorder DISORDER EDT [facility] F25.1 Schizoaffective SCHIZOAFFECTIVE Diagnosis 09/03/2019 [place] disorder, DISORDER, 04:00:00 PM [facility] depressive type DEPRESSIVE TYPE EDT [facility] F41.8 Other specified OTHER SPECIFIED Diagnosis 09/01/2019 [place] [facility] anxiety disorders ANXIETY DISORDERS 04:25:00 PM [facility] EDT [facility] 311 DEPRESSIVE DISORDER DEPRESSIVE DISORDER Diagnosis 000 [facility] NOT ELSEWHERE 10:15:00 AM Hospital CLASSIFIED EST Results ID Date Data Source [id number] 01/02/2020 12:30:00 AM EDT [facility] Name Value Range Interpretation Description Data Sup porting Code Source(s) Document(s ) 2018 Novel [facility] Coronavirus RNA Interpretation Unspecified Specimen Qualitative MARIVEL Probe Detection This lab was ordered by Jass Addison-[id number] and reported by Jass at [facility]. ID Date Data Source [id number] 12/01/2019 03:57:00 PM EDT [facility] Name Value Range Interpretation Description Data Sup porting Code Source(s) Document(s ) 2019 Novel [facility] Coronavirus RNA Interpretation Unspecified Specimen Qualitative MARIVEL Probe Detection This lab was ordered by Jass Addison-[id number] and reported by Jass at [facility]. ID Date Data Source [id number] 11/27/2019 11:17:00 PM EDT [facility] Name Value Range Interpretation Code Description Data Daisy rce(s) Supporting Document(s ) SARS-CoV-2 [facility] Ql MARIVEL+probe This lab was ordered by [facility] nd reported by [facility]. ID Date Data Source [id number] 11/22/2019 01:30:00 PM EDT [facility] Name Value Range Interpretation Description Data Sup porting Code Source(s) Document(s ) 2019 Novel [facility] Coronavirus RNA Interpretation Unspecified Specimen Qualitative MARIVEL Probe Detection This lab was ordered by [facility] Deo bruno [id number] and [facility]. ID Date Data Source [id number] 11/05/2019 01:13:00 AM [facility] Name Value Range Interpretation Description Data Sup porting Code Source(s) Document(s ) 2019 Novel [facility] Coronavirus RNA Interpretation Unspecified Specimen Qualitative MARIVEL Probe Detection This lab was ordered by [facility] Deo bruno [id number] and [facility]. ID Date Data Source [id number] 09/02/2019 12:00:00 AM EDT [facility] Name Value Range Interpretation Code Description Data Daisy rce(s) Supporting Document(s ) 2019-nCoV [facility] RNA XXX MARIVEL+probe- Imp This lab was ordered by [facility] and reported by [employer] ID Date Data Source [id number] 09/01/2019 04:25:00 PM EDT [facility] [id number] Corporation Name Value Range Interpretation Description Data Sup porting Code Source(s) Document(s ) Chest (PACSIMAGE <td> [place] Portable 09/01/2019 [facility] ) Final 16:25</td><td> Care Result Chest Portable Corporation Name: CHANTLEL </td><td><adeola De La Torre MRN: [id number] Sex: M styleCode="Giovanna : lics">(PACSIMA 1985 GE [...] 17:03

</td > ID Date Data Source [id number] 09/01/2019 02:15:00 PM EDT [facility] [id number] Corporation Name Value Range Interpretation Description Data Sup porting Code Source(s) Document(s ) Leukocytes 5.0 k/mm3 4.5-10 <td> [place] [#/volume] in .8 09/01/2019 [facility] Blood by k/mm3 14:15</td><td> Health Care Automated count WBC </td><td> Corporati on 5.0
(4.5-10.8) k/mm3 </td> Hemoglobin 14.9 g/dL 12.3-1 <td> [place] [Mass/volume] in 6.0 09/01/2019 [facility] Blood g/dL 14:15</td><td> Health Care HGB </td><td> Lex[place] 14.9
(12.3-16.0) g/dL </td> Erythrocytes 4.76 m/mm3 4.20-5 <td> [place] [#/volume] in .50 09/01/2019 [facility] Blood m/mm3 14:15</td><td> Health Care RBC </td><td> Lex[place] 4.76
(4.20-5.50) m/mm3 </td> Hematocrit 44.1 % 38.0-4 <td> [place] [Volume 7.0 % 09/01/2019 [facility] Fraction] of 14:15</td><td> Health Care Blood by HCT </td><td> [place] Automated count 44.1
(38.0-47.0) % </td> Erythrocyte mean 92.6 fL 80.0-9 <td> [place] corpuscular 5.0 fL 09/01/2019 [facility] volume [Entitic 14:15</td><td> Health Ca re volume] by MCV </td><td> [place] Automated count 92.6
(80.0-95.0) fL </td> Erythrocyte 13.2 % 11.5-1 <td> [place] distribution 4.5 % 09/01/2019 [facility] width [Entitic 14:15</td><td> Health Car e volume] by RDW </td><td> [place] Automated count 13.2
(11.5-14.5) % </td> Erythrocyte mean 33.8 % 32.0-3 <td> [place] corpuscular 6.0 % 09/01/2019 [facility] hemoglobin 14:15</td><td> Health Care concentration [employer] [Mass/volume] in </td><td> Blood from F[place] by Automated 33.8 count
(32.0-36.0) % </td> Erythrocyte mean 31.3 pg 27.0-3 <td> [place] corpuscular 1.5 pg 09/01/2019 [facility] hemoglobin 14:15</td><td> Health Care [Entitic mass] MCH </td><td> Corporatio n by Automated count 31.3
(27.0-31.5) pg </td> Platelets 232 k/mm3 160-41 <td> [place] [#/volume] in 0 09/01/2019 [facility] Blood by k/mm3 14:15</td><td> Health Care Automated count Platelet Count Corporati on </td><td> 232
(160-410) k/mm3 </td> Lymphocytes 38.2 % 21.0-5 <td> [place] [#/volume] in 5.0 % 09/01/2019 [facility] Blood by 14:15</td><td> Health Care Automated count Lymphocytes Corporation </td><td> 38.2
(21.0-55.0) % </td> Platelet mean 10.5 fL 9.8-12 <td> [place] volume [Entitic .8 fL 09/01/2019 [facility] volume] in Blood 14:15</td><td> Health C are by Automated MPV </td><td> Corporation count 10.5
(9.8-12.8) fL </td> Monocytes/Leukoc 10.9 % 0.0-11 <td> [place] ytes [Pure .0 % 09/01/2019 [facility] number fraction] 14:15</td><td> Health C are in Blood by Monocytes. Corporation Automated count </td><td> 10.9
(0.0-11.0) % </td> Basophils+Eosino 2.8 % 0.0-5. <td> [place] phils+Monocytes 0 % 09/01/2019 [facility] [#/volume] in 14:15</td><td> Health Care Blood by Eosinophils Lex[facility] Automated count </td><td> 2.8
(0.0-5.0) % </td> Immature 0.0 % 0.0-0. <td> [place] granulocytes/100 5 % 09/01/2019 [facility] leukocytes in 14:15</td><td> Health Care Blood by IG% </td><td> [place] Automated count 0.0
(0.0-0.5) %
The IG fraction represents metamyelocytes , myelocytes and/or
promyelocytes and is only reported as part of the automated
differential when found at a percentage of less than 6.
If higher than 6%, a manual differential will be performed.

(0.0-0.5) % </td> Basophils 0.8 % 0.0-2. <td> [place] [#/volume] in 0 % 09/01/2019 [facility] Blood by 14:15</td><td> [employer] Automated count Basophils Lexy </td><td> 0.8
(0.0-2.0) % </td> Neutrophils [#] 47.3 % 32.0-7 <td> [place] in Body fluid by 0.0 % 09/01/2019 [facility] Manual count 14:15</td><td> Health Care Neutrophils [place] </td><td> 47.3
(32.0-70.0) % </td> Sodium 135 mEq/L 135-14 <td> [place] [Moles/volume] 5 09/01/2019 [facility] in Serum or mEq/L 14:15</td><td> Health Care Plasma Sodium-Serum Lex[place] </td><td> 135
(135-145) mEq/L </td> Glucose 90 mg/dL 70-105 <td> [place] [Mass/volume] in mg/dL 09/01/2019 [facility] Blood 14:15</td><td> Health Care Glucose-Serum Lex[place] </td><td> 90
(70-105) mg/dL </td> Potassium 4.8 mEq/L 3.5-5. <td> [place] [Moles/volume] 1 09/01/2019 [facility] in Serum or mEq/L 14:15</td><td> Health Care Plasma Potassium-Seru Lexy yamil </td><td> 4.8
(3.5-5.1) mEq/L </td> Carbon dioxide, 27 mEq/L 22-30 <td> [place] total mEq/L 09/01/2019 [facility] [Moles/volume] 14:15</td><td> Health Car e in Serum or CO2 </td><td> [place] Plasma 27
(22-30) mEq/L </td> Chloride 100 mEq/L 98-107 <td> [place] [Moles/volume] mEq/L 09/01/2019 [facility] in Serum or 14:15</td><td> Health Care Plasma Chloride Lexy </td><td> 100
(98-107) mEq/L </td> Creatinine 1.19 mg/dL 0.72-1 <td> [place] [Moles/volume] .25 09/01/2019 [facility] in Serum or mg/dL 14:15</td><td> Health Care Plasma Creatinine. Lex[place] </td><td> 1.19
(0.72-1.25) mg/dL </td> Aspartate 23 U/L 4-35 <td> [place] aminotransferase U/L 09/01/2019 [facility] [Enzymatic 14:15</td><td> Health Care activity/volume] AST (SGOT) [place] in Serum or </td><td> Plasma 23
(4-35) U/L </td> Urea nitrogen 25 mg/dL 6-22 <td> [place] [Mass/volume] in mg/dL 09/01/2019 [facility] Blood 14:15</td><td> Health Care [employer]UN Corporation </td><td><para graph styleCode="Ary d"> 25 H </paragraph><b r/> (6-22) mg/dL </td> Alanine 6 U/L 6-55 <td> [place] aminotransferase U/L 09/01/2019 [facility] [Enzymatic 14:15</td><td> Health Care activity/volume] ALT (SGPT) Corporation in Serum or </td><td> Plasma 6
(6-55) U/L </td> Bilirubin.total 0.6 mg/dL 0.2-1. <td> [place] [Mass/volume] in 3 09/01/2019 [facility] Blood mg/dL 14:15</td><td> Health Care Bilirubin - Corporation Total </td><td> 0.6
(0.2-1.3) mg/dL </td> Albumin 4.7 g/dL 3.4-4. <td> [place] [Mass/volume] in 8 g/dL 09/01/2019 [facility] Serum or Plasma 14:15</td><td> Health Ca re Albumin Corporation </td><td> 4.7
(3.4-4.8) g/dL </td> Calcium 9.5 mg/dL 8.6-10 <td> [place] [Mass/volume] in .2 09/01/2019 [facility] Blood mg/dL 14:15</td><td> Health Care Calcium Corporation </td><td> 9.5
(8.6-10.2) mg/dL </td> Proteins - Total 8.1 g/dL 6.4-8. <td> [place] 3 g/dL 09/01/2019 [facility] 14:15</td><td> Health Care Proteins - Corporation Total </td><td> 8.1
(6.4-8.3) g/dL </td> Globulin 3.4 gm/dL 2.9-4. <td> [place] [Mass/volume] in 0 09/01/2019 [facility] Serum gm/dL 14:15</td><td> Health Care Globulin Corporation </td><td> 3.4
(2.9-4.0) gm/dL </td> Hemolysis index No <td> [place] of Serum or Hemolysis 09/01/2019 [facility] Plasma 14:15</td><td> Health Care Hemolysis [place] Index </td><td> No Hemolysis
</td> Anion gap in 8 mEq/L 7-13 <td> [place] Serum or Plasma mEq/L 09/01/2019 [facility] 14:15</td><td> Health Care Anion Gap [place] </td><td> 8
(7-13) mEq/L </td> Lipemic index of No Lipemia <td> [place] Serum or Plasma 09/01/2019 [facility] 14:15</td><td> [facility] Care Lipemia Index Lex[place] </td><td> No Lipemia
</td> Icteric index of Not <td> [place] Serum or Plasma Icteric 09/01/2019 [facility] 14:15</td><td> [facility] Care Icteric Index Lex[place] </td><td> Not Icteric
</td> Cholesterol in 59 mg/dL >60 <td> [place] HDL mg/dL 09/02/2019 [facility] [Mass/volume] in 09:21</td><td> Health C are Serum or Plasma HDL [place] Cholesterol </td><td> 59
(>60) mg/dL </td> Hemoglobin A1C 5.7 % 4.0-5. <td> [place] 6 % 09/02/2019 [facility] 09:21</td><td> Health Care Hemoglobin [place] A1C </td><td><para graph styleCode="Ary d"> 5.7 H [...]
11 -269
12 -298
Source: Adapted from [place] [employer]. Standards of medical
care in diabetes-2014. Diabetes Care.2014;37(S p 1):S14-S80, table 8.

(4.0-5.6) % </td> Cholesterol 227 mg/dL 125-24 <td> [place] [Moles/volume] 0 09/02/2019 [place] in Serum or mg/dL 09:21</td><td> [facility] Plasma Cholesterol [facility] </td><td> 227
(125-240) mg/dL </td> Cholesterol in 160 mg/dL <150 <td> [place] LDL mg/dL 09/02/2019 [facility] [Mass/volume] in 09:21</td><td> Health C are Serum or Plasma LDL Corporation Cholesterol </td><td><para graph styleCode="Ary d"> 160 * AB </paragraph><b r/> (<150) mg/dL </td> Triglyceride 41 mg/dL 30-200 <td> [place] [Mass/volume] in mg/dL 09/02/2019 [facility] Serum or Plasma 09:21</td><td> Health Ca re Triglyceride Corporation </td><td> 41
(30-200) mg/dL </td> ID Date Data Source [id number] 08/27/2019 03:53:00 PM EDT [facility] Name Value Range Interpretation Code Description Data Daisy rce(s) Supporting Document(s ) SARS-CoV-2 [facility] Ql MARIVEL+probe This lab was ordered by [facility] nd reported by [facility]. ID Date Data Source [id number] 07/07/2019 04:05:00 AM EDT [facility] Name Value Range Interpretation Description Data Sup porting Code Source(s) Document(s ) SARS [facility] coronavirus 2 RNA [Presence] in Respiratory specimen by MARIVEL with probe detection This lab was ordered by [facility] and reported by [facility]. ID Date Data Source [id number] 07/05/2019 10:00:00 AM EDT [facility] Name Value Range Interpretation Description Data Sup porting Code Source(s) Document(s ) SARS [facility] coronavirus 2 RNA [Presence] in Respiratory specimen by MARIVEL with probe detection This lab was ordered by [facility] and reported by [facility]. ID Date Data Source [id number] 07/03/2019 04:20:00 PM EDT [facility] Name Value Range Interpretation Description Data Sup porting Code Source(s) Document(s ) SARS [facility] coronavirus 2 RNA [Presence] in Respiratory specimen by MARIVEL with probe detection This lab was ordered by [facility] and reported by [facility]. ID Date Data Source [id number] 06/30/2019 06:00:00 PM EDT [facility] Name Value Range Interpretation Description Data Sup porting Code Source(s) Document(s ) SARS [facility] coronavirus 2 RNA [Presence] in Respiratory specimen by MARIVEL with probe detection This lab was ordered by [facility] and reported by [facility]. ID Date Data Source [id number] 06/30/2019 06:00:00 PM EDT [facility] Name Value Range Interpretation Description Data Sup porting Code Source(s) Document(s ) SARS [facility] coronavirus 2 RNA [Presence] in Respiratory specimen by MARIVEL with probe detection This lab was ordered by [facility] and reported by [facility]. Procedure Social History Code Duration Value Status Description Data Source(s ) Smoking 12/24/2018 Never Smoker completed Never Smoker eCW3 ([facility] 12:00:[address] [facility]) Smoking Unknown if ever completed Unknown if ever [facility] smoked smoked [facility] Never Smoker completed Never Smoker eCW3 ([facility]) Smoking Unknown if ever completed Unknown if ever [facility] smoked iubenda Vital Signs ID Date Data Source UNK Name Value Range Interpretation Code Description Data Source(s) Diastolic blood 72 mm[Hg] 72 mm[Hg] eCW3 ([facility]) Systolic blood 106 mm[Hg] 106 mm[Hg] eCW3 ([facility]) Body temperature 97.9 [degF] 97.9 [degF] eCW3 ( [facility]) Body mass index 25.36 kg/m2 25.36 kg/m2 eCW3 (H udson (BMI) [Ratio] [facility]) Body weight 187 [lb_av] 187 [lb_av] eCW3 ([facility]) Body height [in_i] eCW3 ([facility]) Diastolic blood 80 mmHg 80 mmHg [facility] Systolic blood 130 mmHg 130 mmHg [facility] Heart rate 122 bpm 122 bpm [facility] Diastolic blood 85 mmHg 85 mmHg [facility] Systolic blood 111 mmHg 111 mmHg [facility] Respiratory rate 18 bpm 18 bpm [facility] Heart rate 111 bpm 111 bpm [facility] Respiratory rate 19 bpm 19 bpm [facility] Diastolic blood 76 mmHg 76 mmHg [facility] Systolic blood 124 mmHg 124 mmHg [facility] Heart rate 122 bpm 122 bpm [facility] No Vital Sign [facility] for this episode. Care Co rporation Patient Treatment Plan of Care Planned Activity Planned Date Details Description Data Source (s) Ativan (Lorazepam) O 09/01/2019 03:09:16 [facility] Tylenol (Acetaminoph 09/01/2019 02:58:01 [facility] Ativan (Lorazepam) O 09/01/2019 02:07:46 [facility] poration
[2020-01-09 06:30] VITALS: TEMP 98.3
[2020-01-09 06:36] LABS: ANION GAP 7 MMOL/L (8-16); BLOOD UREA NITROGEN 23.8 mg/dL (7-18); CALCIUM 9.2 mg/dL (8.5-10.1); CHLORIDE 102 mmol/L (98-107); CO2 30 mmol/L (21-32); GLUCOSE,RANDOM 86 mg/dL (74-106); POTASSIUM 4.4 mmol/L (3.5-5.1); SODIUM 138 mmol/L (136-145)
[2020-01-09 06:50] LABS: BILIRUBIN,TOTAL 0.6 mg/dL (0.2-1)
[2020-01-09] MEDS ORDERED: LEVOTHYROXINE NA 75 MCG TABLET (FP) PO SCH (08:15)
[2020-01-09] MEDS ORDERED: LEVOTHYROXINE NA 25 MCG TABLET (FP) ONE (08:58)
[2020-01-09] MEDS ORDERED: metoPROLOL SUCCINATE 25 MG TAB.SR.24H (FP) ONE (08:58)
[2020-01-09] MEDS ORDERED: ENOXAPARIN NA (PORCINE) 40 MG/0.4 ML DISP.SYRIN SQ ONE (08:59)
[2020-01-09] MEDS ORDERED: FUROSEMIDE 40 MG TABLET (FP) ONE (09:43)
[2020-01-09] MEDS ORDERED: SACUBITRIL/VALSARTAN 24 MG-26 MG TABLET PO SCH (10:00)
[2020-01-09] MEDS ORDERED: SPIRONOLACTONE 25 MG TABLET PO SCH (10:00)
[2020-01-09] MEDS ORDERED: metoPROLOL SUCCINATE 25 MG TAB.SR.24H (FP) PO SCH (10:00)
[2020-01-09] MEDS ORDERED: ENOXAPARIN NA (PORCINE) 40 MG/0.4 ML DISP.SYRIN SQ SCH (10:00)
[2020-01-09] MEDS ORDERED: PATIENT'S OWN MEDICATION (NON-FORMULARY) (Furosemide [Lasix] 80 MG) PO SCH (10:00)
--- NOTE | 2020-01-09 10:34 | EKG ---
Test Reason : Blood Pressure : / mmHG Vent. Rate : 081 BPM Atrial Rate : 081 BPM P-R Int : 192 ms QRS Dur : 164 ms QT Int : 448 ms P-R-T Axes : 069 144 036 degrees QTc Int : 520 ms NORMAL SINUS RHYTHM RIGHT AXIS DEVIATION LEFT BUNDLE BRANCH BLOCK ABNORMAL ECG WHEN COMPARED WITH ECG OF 09-JAN-2019 22:04, QUESTIONABLE CHANGE IN QRS AXIS Confirmed by SRAVANTHI DÍAZ MD ([id number]) on 01/09/2020 10:34:31 AM Referred By: Confirmed By:SRAVANTHI DÍAZ MD
--- NOTE | 2020-01-09 10:36 | EKG ---
Test Reason : Blood Pressure : / mmHG Vent. Rate : 089 BPM Atrial Rate : 089 BPM P-R Int : 202 ms QRS Dur : 154 ms QT Int : 416 ms P-R-T Axes : 076 -64 078 degrees QTc Int : 506 ms SINUS RHYTHM WITH OCCASIONAL PREMATURE VENTRICULAR COMPLEXES LEFT AXIS DEVIATION LEFT BUNDLE BRANCH BLOCK ABNORMAL ECG WHEN COMPARED WITH ECG OF 09-JAN-2019 22:04, PREMATURE VENTRICULAR COMPLEXES ARE NOW PRESENT Confirmed by SRAVANTHI DÍAZ MD ([id number]) on 01/09/2020 10:36:08 AM Referred By: Confirmed By:SRAVANTHI DÍAZ MD
[2020-01-09 10:41] VITALS: BP 98/72; PULSE 89
[2020-01-09] MEDS ORDERED: FUROSEMIDE 40 MG TABLET (FP) PO SCH (10:47)
--- NOTE | 2020-01-09 11:13 | ECHO ---
Version: 1 Name: KRAIG ABDUL Exam: Adult Echocardiogram Study Date: 01/09/2020, 10:21 AM Age: 34 Years MMode/2D Measurements & Calculations IVSd: 0.76 cm LVIDs: 5.4 cm LVIDd: 5.8 cm LVPWd: 1.71 cm LAV (MOD-bp): 141.0 ml LVOT diam: 2.02 cm Ao root diam: 2.6 cm LA dimension: 4.1 cm Doppler Measurements & Calculations MR max P.6 mmHg Ao max P.2 mmHg Ao V2 max: 89.4 cm/sec Left Ventricle The left ventricle is moderately dilated. Left ventricular systolic function is severely reduced. Ej ection Fraction = <15%. There is severe global hypokinesis of the left ventricle. Right Ventricle The right ventricle is mildly dilated. The right ventricular systolic function is mildly reduced. Atria The left atrium is mildly dilated. Right atrial size is normal. Mitral Valve The mitral valve leaflets appear normal. There is no evidence of stenosis, fluttering, or prolapse. There is no mitral valve stenosis. There is mild mitral regurgitation. Tricuspid Valve There is mild tricuspid regurgitation. Right ventricular systolic pressure is normal. Aortic Valve The aortic valve is trileaflet. No hemodynamically significant valvular aortic stenosis. No aortic regurgitation is present. Pulmonic Valve The pulmonic valve is not well seen, but is grossly normal. There is no pulmonic valvular stenosis. Trace pulmonic valvular regurgitation. Great Vessels The aortic root is normal size. Pericardium/Pleura There is no pericardial effusion. Summary Statements The left ventricle is moderately dilated. Left ventricular systolic function is severely reduced. Ejection Fraction = <15%. There is severe global hypokinesis of the left ventricle. The right ventricle is mildly dilated. The right ventricular systolic function is mildly reduced. The left atrium is mildly dilated. There is mild mitral regurgitation. There is mild tricuspid regurgitation. There is no pericardial effusion. MD Morejon *Carla 01/09/2020, 11:12 AM Ordering Physician: Sunday Miller Referring Physician: SUNDAY MILLER Performed By: Angela Currie
[2020-01-09 12:12] LABS: CHOLESTEROL 201 mg/dL (50-200); HDL CHOLESTEROL 69 mg/dL (40-60); LDL CHOLESTEROL (ONLY SJRH) 123 mg/dL (5-100); TRIGLYCERIDES 53 mg/dL (0-150)
--- NOTE | 2020-01-09 12:19 | PN ---
Teaching Attending Note Name of Resident: Miguel Garcia ATTENDING PHYSICIAN STATEMENT I reviewed the resident's note and discussed the case with the resident. The patient eloped from the ED prior to my encounter. Informed by nursing staff after patient eloped. No medical interview or physical exam was performed by me.
--- NOTE | 2020-01-09 12:27 | DS ---
Physical Exam: SUBJECTIVE: Patient seen and examined. Complaining of chest pain, dizziness. Pt reported to have eloped per ED nurse. OBJECTIVE: Vital Signs Period Temp Pulse Resp BP Sys/Hicks Pulse Ox Last 24 Hr 97.8 F-98.3 F 86-91 18-18 98-114/72-78 97-100 PHYSICAL EXAM GENERAL: The patient is awake, alert, and fully oriented, in no acute distress. HEAD: Normal with no signs of trauma. EYES: PERRL, extraocular movements intact, sclera anicteric, conjunctiva clear. ENT: Ears normal, nares patent, oropharynx clear without exudates, moist mucous membranes. NECK: Trachea midline, full range of motion, supple. LUNGS: Breath sounds equal, clear to auscultation bilaterally, no wheezes, no crackles, no accessory muscle use. HEART: Regular rate and rhythm, S1, S2 without murmur, rub or gallop. ABDOMEN: Soft, nontender, nondistended, normoactive bowel sounds, no guarding, no rebound, no hepatosplenomegaly, no masses. EXTREMITIES: 2+ pulses, warm, well-perfused, no edema. NEUROLOGICAL: Cranial nerves II through XII grossly intact. Normal speech, gait not observed. PSYCH: Normal mood, normal affect. SKIN: Warm, dry, normal turgor, no rashes or lesions noted. LABS Laboratory Results - last 24 hr 01/09/20 01/09/20 01/09/20 03:15 03:15 03:15 WBC 6.6 RBC 4.61 Hgb 15.0 Hct 44.2 D MCV 95.9 MCH 32.5 MCHC 33.9 RDW 14.8 Plt Count 169 MPV 9.8 Absolute Neuts (auto) 3.3 Neutrophils % 50.1 Lymphocytes % 36.3 Monocytes % 11.1 H Eosinophils % 1.7 Basophils % 0.8 Nucleated RBC % 0 PT with INR 13.60 H INR 1.15 H PTT (Actin FS) 26.6 Sodium 138 Potassium 6.0 H Chloride 102 Carbon Dioxide 30 Anion Gap 6 L BUN 24.2 H Creatinine 1.2 Est GFR (CKD-EPI)AfAm 89.62 Est GFR (CKD-EPI)NonAf 77.33 Random Glucose 84 Calcium 9.0 Total Bilirubin 0.6 AST 44 H ALT 16 Alkaline Phosphatase 67 Creatine Kinase 400 H Creatine Kinase Index 0.5 CK-MB (CK-2) 2.0 Troponin I < 0.02 B-Natriuretic Peptide 865.4 H Total Protein 8.0 Albumin 4.5 Triglycerides Cholesterol Total LDL Cholesterol HDL Cholesterol TSH 2.41 D 01/09/20 05:40 WBC RBC Hgb Hct MCV MCH MCHC RDW Plt Count MPV Absolute Neuts (auto) Neutrophils % Lymphocytes % Monocytes % Eosinophils % Basophils % Nucleated RBC % PT with INR INR PTT (Actin FS) Sodium 138 Potassium 4.4 Chloride 102 Carbon Dioxide 30 Anion Gap 7 L BUN 23.8 H Creatinine 1.0 Est GFR (CKD-EPI)AfAm 111.73 Est GFR (CKD-EPI)NonAf 96.40 Random Glucose 86 Calcium 9.2 Total Bilirubin AST ALT Alkaline Phosphatase Creatine Kinase Creatine Kinase Index CK-MB (CK-2) Troponin I < 0.02 B-Natriuretic Peptide Total Protein Albumin Triglycerides 53 Cholesterol 201 H Total LDL Cholesterol 123 H HDL Cholesterol 69 H TSH 2.04 D HOSPITAL COURSE: Date of Admission:01/09/20 Date of Discharge: 01/09/20 Minutes to complete discharge: 36 Discharge Summary Problems reviewed: Yes Reason For Visit: CHEST PAIN,DIZZINESS Condition: Unchanged/Unknown - Instructions Disposition: ELOPED - Home Medications Comprehensive Discharge Medication List: Ambulatory Orders Furosemide [Lasix] 80 mg PO DAILY 01/09/20 Levothyroxine [Synthroid -] 75 mcg PO DAILY 01/09/20 Metoprolol Succinate [Toprol Xl] 75 mg PO DAILY 01/09/20 Sacubitril/Valsartan [Entresto 24 mg-26 mg Tablet] 1 each PO DAILY 01/09/20 Spironolactone 25 mg PO DAILY 01/09/20 This patient is new to me today: No Emergency Visit: Yes ED Registration Date: 01/09/20 Care time: The patient presented to the Emergency Department on the above date and was hospitalized for further evaluation of their emergent condition. Critical Care patient: No - Discharge Referral Referred to [facility] Med P.C[facility] No ATTENDING PHYSICIAN STATEMENT I saw and evaluated the patient. I reviewed the resident's note and discussed the case with the resident. I agree with the resident's findings and plan as documented. SUBJECTIVE: OBJECTIVE: ASSESSMENT AND PLAN:
== END 2020-01-09 12:00 | disposition left against medical advice (07) | DRG 111 ==
LOC: JER 03:00 → JERBED 04:51
PROVIDERS: ADMIT Internal Medicine
DX: R42 Dizziness and giddiness (principal); I50.22 Chronic systolic (congestive) heart failure; E05.00 Thyrotoxicosis with diffuse goiter without thyrotoxic crisis or storm; K21.9 Gastro-esophageal reflux disease without esophagitis; G40.909 Epilepsy, unspecified, not intractable, without status epilepticus; F41.9 Anxiety disorder, unspecified; R07.9 Chest pain, unspecified; E78.00 Pure hypercholesterolemia, unspecified
CPT/HCPCS: 36415; 70450-TC; 71046-TC-FY; 80048; 80053; 80061; 82550; 82553; 83721; 83880; 84443; 84484; 85025; 85610; 85730; 93005; 93010; 93306-TC; 99285-25; U0003

== ENCOUNTER 2020-03-11 17:57 | Inpatient (IN) | payer OTHER ==
[2020-03-11 18:07] VITALS: BMI 24.3
[2020-03-11] MEDS ORDERED: ASPIRIN 325 MG TABLET PO ONE (18:57)
[2020-03-11] MEDS ORDERED: ASPIRIN 81 MG CHEWABLE TABLETS ONE ×2 (19:05→19:06)
[2020-03-11 19:30] LABS: BASO % 0.6 % (0-2.0); EOS % 2.1 % (0-4.5); HEMATOCRIT 39.8 % (35.4-49); HEMOGLOBIN 13.2 GM/dL (11.7-16.9); LYMPH % 33.7 % (8-40); MCH 31.5 pg (25.7-33.7); MCHC 33.1 g/dl (32.0-35.9); MEAN CELL VOLUME 95.2 fl (80-96); MEAN PLT VOLUME 9.9 fl (7.5-11.1); NEUT % 52.6 % (42.8-82.8); PLATELET COUNT 128 K/MM3 (134-434); RBC 4.19 M/mm3 (4.00-5.60); RDW 13.5 % (11.9-15.9); WHITE BLOOD COUNT 4.9 K/mm3 (4.0-10.0)
[2020-03-11 19:39] LABS: INR 1.08 (0.83-1.09)
[2020-03-11 19:47] LABS: CHLORIDE 102 mmol/L (98-107); SODIUM 136 mmol/L (136-145)
[2020-03-11 19:52] LABS: ALBUMIN 3.9 g/dl (3.4-5.0); CALCIUM 8.7 mg/dL (8.5-10.1); GLUCOSE,RANDOM 80 mg/dL (74-106)
[2020-03-11 19:53] LABS: ANION GAP 5 MMOL/L (8-16); BLOOD UREA NITROGEN 12.3 mg/dL (7-18); CO2 30 mmol/L (21-32); MAGNESIUM 1.7 mg/dL (1.8-2.4)
[2020-03-11 19:55] LABS: SGOT/AST 25 U/L (15-37); SGPT/ALT 11 U/L (13-61)
[2020-03-11 19:57] LABS: BILIRUBIN,TOTAL 0.3 mg/dL (0.2-1); TOT PROT 6.5 g/dl (6.4-8.2)
[2020-03-11 19:58] LABS: ALK PHOS 61 U/L (45-117)
[2020-03-11 20:01] LABS: N-TERMINAL BNP 831.8 pg/ml (5-125)
[2020-03-11 21:11] LABS: COCAINE, UR NEGATIVE ng/ml (CUTOFF=300); URINE BARBITURATES NEGATIVE ng/ml (CUTOFF=200)
[2020-03-11 21:12] LABS: PHENCYCLIDINE,URINE NEGATIVE ng/ml (CUTOFF=25)
[2020-03-11 21:15] LABS: METHADONE, UR NEGATIVE ng/ml (CUTOFF=300); OPIATES, URI NEGATIVE ng/ml (CUTOFF=300); URINE AMPHETAMINES NEGATIVE ng/ml (CUTOFF=500); URINE BENZODIAZEPINES NEGATIVE ng/ml (CUTOFF=200)
[2020-03-11] MEDS ORDERED: MAGNESIUM SULF 50% (8.12 MEQ/2 ML-1 GM VIAL) IVPB ONE (21:55)
[2020-03-11] MEDS ORDERED: MAGNESIUM SULFATE IN WATER 2 GM/50 ML IVPB IVPB ONE (22:01)
[2020-03-11 23:47] LABS: PH,URINE 8.5 (5.0-8.0); URINE APPEARANCE CLEAR; URINE BILIRUBIN NEGATIVE (NEGATIVE); URINE COLOR YELLOW; URINE GLUCOSE (UA) NEGATIVE (NEGATIVE); URINE KETONE NEGATIVE (NEGATIVE); URINE LEUK ESTERASE NEGATIVE (NEGATIVE); URINE NITRITE NEGATIVE (NEGATIVE); URINE PROTEIN NEGATIVE (NEGATIVE)
[2020-03-12] MEDS ORDERED: SODIUM CHLORIDE 0.9% 500 ML INFUS.BAG IV ONE (03:33)
[2020-03-12 06:13] LABS: HEMATOCRIT 40.7 % (35.4-49); HEMOGLOBIN 13.2 GM/dL (11.7-16.9); MCH 30.6 pg (25.7-33.7); MCHC 32.4 g/dl (32.0-35.9); MEAN CELL VOLUME 94.6 fl (80-96); MEAN PLT VOLUME 9.8 fl (7.5-11.1); PLATELET COUNT 126 K/MM3 (134-434); RBC 4.31 M/mm3 (4.00-5.60); RDW 13.2 % (11.9-15.9); WHITE BLOOD COUNT 4.2 K/mm3 (4.0-10.0)
[2020-03-12 06:19] LABS: POTASSIUM 4.1 mmol/L (3.5-5.1)
[2020-03-12 06:21] LABS: ALBUMIN 3.6 g/dl (3.4-5.0); CALCIUM 8.6 mg/dL (8.5-10.1); MAGNESIUM 2.3 mg/dL (1.8-2.4)
[2020-03-12 06:22] LABS: BLOOD UREA NITROGEN 10.8 mg/dL (7-18)
[2020-03-12 06:24] LABS: CREATININE 0.8 mg/dL (0.55-1.3)
[2020-03-12 06:25] LABS: PHOSPHOROUS 4.4 mg/dL (2.5-4.9)
[2020-03-12 06:26] LABS: TOT PROT 6.3 g/dl (6.4-8.2)
[2020-03-12 06:27] LABS: BILIRUBIN,TOTAL 0.3 mg/dL (0.2-1)
[2020-03-12] MEDS ORDERED: FUROSEMIDE 40 MG TABLET (FP) ONE (09:21)
[2020-03-12] MEDS ORDERED: SPIRONOLACTONE 25 MG TABLET ONE (09:41)
[2020-03-12] MEDS: SPIRONOLACTONE 25 MG TABLET PO SCH (09:46)
[2020-03-12] MEDS ORDERED: FUROSEMIDE 40 MG TABLET (FP) PO SCH (10:00)
[2020-03-12] MEDS ORDERED: SACUBITRIL/VALSARTAN 24 MG-26 MG TABLET PO SCH ×2 (10:00)
[2020-03-12] MEDS: SACUBITRIL/VALSARTAN 24 MG-26 MG TABLET PO SCH ×2 (10:25→21:30)
[2020-03-12] MEDS ORDERED: ACETAMINOPHEN 325 MG TABLET (FP) PO ONE ×2 (10:38→20:17)
[2020-03-12] MEDS ORDERED: ACETAMINOPHEN 325 MG TABLET (FP) ONE (10:49)
[2020-03-12] MEDS ORDERED: PT OWN MED DRAWER 7, Y5N ONE ×2 (14:16→20:38)
[2020-03-12] MEDS: FUROSEMIDE 40 MG TABLET (FP) PO SCH (21:31)
[2020-03-13 09:11] LABS: HEMATOCRIT 42.2 % (35.4-49); MCH 31.7 pg (25.7-33.7); MCHC 33.3 g/dl (32.0-35.9); MEAN CELL VOLUME 95.3 fl (80-96); MEAN PLT VOLUME 9.8 fl (7.5-11.1); PLATELET COUNT 124 K/MM3 (134-434); RBC 4.42 M/mm3 (4.00-5.60); RDW 13.4 % (11.9-15.9); WHITE BLOOD COUNT 3.6 K/mm3 (4.0-10.0)
[2020-03-13] MEDS ORDERED: PT OWN MED DRAWER 7, Y5N ONE ×2 (09:15→21:13)
[2020-03-13 09:23] LABS: BLOOD UREA NITROGEN 19.4 mg/dL (7-18); MAGNESIUM 1.9 mg/dL (1.8-2.4)
[2020-03-13] MEDS: SACUBITRIL/VALSARTAN 24 MG-26 MG TABLET PO SCH ×2 (09:24→21:33)
[2020-03-13] MEDS: SPIRONOLACTONE 25 MG TABLET PO SCH (09:24)
[2020-03-13] MEDS: ACETAMINOPHEN 325 MG TABLET (FP) PO PRN ×2 (09:25→21:23)
[2020-03-13 09:26] LABS: PHOSPHOROUS 3.7 mg/dL (2.5-4.9)
[2020-03-13] MEDS: ENOXAPARIN NA (PORCINE) 40 MG/0.4 ML DISP.SYRIN SQ SCH ×2 (09:26→09:48)
[2020-03-13] MEDS: FUROSEMIDE 40 MG TABLET (FP) PO SCH (09:26)
[2020-03-14] MEDS: SPIRONOLACTONE 25 MG TABLET PO SCH (09:43)
[2020-03-14] MEDS: SACUBITRIL/VALSARTAN 24 MG-26 MG TABLET PO SCH ×2 (09:43→21:41)
[2020-03-14] MEDS: FUROSEMIDE 40 MG TABLET (FP) PO SCH (09:43)
[2020-03-14] MEDS: ENOXAPARIN NA (PORCINE) 40 MG/0.4 ML DISP.SYRIN SQ SCH (09:44)
[2020-03-14] MEDS: ACETAMINOPHEN 325 MG TABLET (FP) PO PRN ×2 (09:45→15:57)
[2020-03-14 15:47] LABS: POTASSIUM 4.3 mmol/L (3.5-5.1)
[2020-03-14 15:48] LABS: CALCIUM 8.9 mg/dL (8.5-10.1)
[2020-03-14 15:49] LABS: BLOOD UREA NITROGEN 21.9 mg/dL (7-18); MAGNESIUM 1.9 mg/dL (1.8-2.4)
[2020-03-14 15:52] LABS: CREATININE 1.4 mg/dL (0.55-1.3)
[2020-03-14] MEDS: LIDOCAINE 5% TOPICAL PATCH TP SCH (17:48)
[2020-03-14] MEDS: LIDOCAINE PATCH REMOVAL MC SCH (21:40)
[2020-03-15 07:06] LABS: HEMATOCRIT 41.7 % (35.4-49); HEMOGLOBIN 13.7 GM/dL (11.7-16.9); MCH 31.1 pg (25.7-33.7); MCHC 32.9 g/dl (32.0-35.9); MEAN CELL VOLUME 94.4 fl (80-96); MEAN PLT VOLUME 9.4 fl (7.5-11.1); PLATELET COUNT 130 K/MM3 (134-434); RBC 4.42 M/mm3 (4.00-5.60); RDW 13.6 % (11.9-15.9); WHITE BLOOD COUNT 4.6 K/mm3 (4.0-10.0)
[2020-03-15 07:42] LABS: POTASSIUM 4.1 mmol/L (3.5-5.1)
[2020-03-15 08:02] LABS: CALCIUM 9.3 mg/dL (8.5-10.1)
[2020-03-15 08:03] LABS: BLOOD UREA NITROGEN 23.3 mg/dL (7-18); MAGNESIUM 2.1 mg/dL (1.8-2.4)
[2020-03-15 08:06] LABS: CREATININE 0.9 mg/dL (0.55-1.3); PHOSPHOROUS 4.5 mg/dL (2.5-4.9)
[2020-03-15] MEDS ORDERED: PT OWN MED DRAWER 7, Y5N ONE (09:01)
[2020-03-15] MEDS: ENOXAPARIN NA (PORCINE) 40 MG/0.4 ML DISP.SYRIN SQ SCH ×2 (09:03→09:09)
[2020-03-15] MEDS: SPIRONOLACTONE 25 MG TABLET PO SCH (09:05)
[2020-03-15] MEDS: LIDOCAINE 5% TOPICAL PATCH TP SCH (09:06)
[2020-03-15] MEDS: SACUBITRIL/VALSARTAN 24 MG-26 MG TABLET PO SCH ×2 (09:06→22:46)
[2020-03-15] MEDS: FUROSEMIDE 40 MG TABLET (FP) PO SCH (09:06)
[2020-03-15] MEDS: ACETAMINOPHEN 325 MG TABLET (FP) PO PRN (16:09)
[2020-03-15] MEDS: LIDOCAINE PATCH REMOVAL MC SCH (22:49)
[2020-03-16 08:37] LABS: HEMATOCRIT 42.1 % (35.4-49); MCH 31.7 pg (25.7-33.7); MCHC 33.2 g/dl (32.0-35.9); MEAN CELL VOLUME 95.5 fl (80-96); MEAN PLT VOLUME 10.5 fl (7.5-11.1); PLATELET COUNT 141 K/MM3 (134-434); RBC 4.41 M/mm3 (4.00-5.60); RDW 13.8 % (11.9-15.9)
[2020-03-16 08:51] LABS: POTASSIUM 4.3 mmol/L (3.5-5.1)
[2020-03-16 09:00] LABS: CALCIUM 8.8 mg/dL (8.5-10.1)
[2020-03-16 09:01] LABS: MAGNESIUM 1.9 mg/dL (1.8-2.4)
[2020-03-16 09:03] LABS: CREATININE 1.1 mg/dL (0.55-1.3); PHOSPHOROUS 5.2 mg/dL (2.5-4.9)
[2020-03-16] MEDS: SPIRONOLACTONE 25 MG TABLET PO SCH (09:30)
[2020-03-16] MEDS: FUROSEMIDE 40 MG TABLET (FP) PO SCH (09:30)
[2020-03-16] MEDS: SACUBITRIL/VALSARTAN 24 MG-26 MG TABLET PO SCH (09:30)
[2020-03-16] MEDS: LIDOCAINE 5% TOPICAL PATCH TP SCH (09:31)
[2020-03-16] MEDS: ENOXAPARIN NA (PORCINE) 40 MG/0.4 ML DISP.SYRIN SQ SCH (09:31)
[2020-03-16 10:44] VITALS: BP 95/51; PULSE 80; TEMP 97.7
== END 2020-03-16 18:35 | disposition left against medical advice (07) | DRG 205 ==
LOC: JER 17:57 → INTOOBSV 20:50 → JERBED 20:50 → OBSVTOIN 20:50 → J4W 03-12 11:49 → OBSVTOIN 03-14 16:45
PROVIDERS: ADMIT Hospitalist
DX: I42.8 Other cardiomyopathies (principal); E05.00 Thyrotoxicosis with diffuse goiter without thyrotoxic crisis or storm; I47.2 Ventricular tachycardia; I50.22 Chronic systolic (congestive) heart failure; R55 Syncope and collapse; R42 Dizziness and giddiness; R07.89 Other chest pain
CPT/HCPCS: 36415; 70450-TC; 71045-TC-FY; 71046-TC-FY; 80048; 80053; 80061; 80307; 81003; 83036; 83721; 83735; 83880; 84100; 84439; 84443; 84484; 85025; 85027; 85610; 85730; 93005; 93010; 93306-TC; 93880-TC; 99285-25; C9803; G0378; U0003

== ENCOUNTER 2020-05-27 02:11 | Inpatient (IN) | payer OTHER ==
[2020-05-27 03:33] LABS: BASO % 0.9 % (0-2.0); HEMATOCRIT 40.5 % (35.4-49); HEMOGLOBIN 13.5 GM/dL (11.7-16.9); LYMPH % 34.7 % (8-40); MCH 31.3 pg (25.7-33.7); MCHC 33.2 g/dl (32.0-35.9); MEAN CELL VOLUME 94.1 fl (80-96); MEAN PLT VOLUME 9.2 fl (7.5-11.1); MONO % 8.2 % (3.8-10.2); NEUT % 54.2 % (42.8-82.8); PLATELET COUNT 197 K/MM3 (134-434); RDW 14.2 % (11.9-15.9)
[2020-05-27] MEDS ORDERED: SODIUM CHLORIDE 0.9% 500 ML INFUS.BAG IV ONE (03:50)
[2020-05-27 03:55] LABS: CHLORIDE 105 mmol/L (98-107); POTASSIUM 5.8 mmol/L (3.5-5.1); SODIUM 136 mmol/L (136-145)
[2020-05-27 03:57] LABS: CALCIUM 8.4 mg/dL (8.5-10.1)
[2020-05-27 03:58] LABS: ALBUMIN 3.8 g/dl (3.4-5.0); ANION GAP 5 MMOL/L (8-16); BLOOD UREA NITROGEN 19.1 mg/dL (7-18); CO2 26 mmol/L (21-32); GLUCOSE,RANDOM 124 mg/dL (74-106)
[2020-05-27 04:01] LABS: CREATININE 1.1 mg/dL (0.55-1.3); SGOT/AST 59 U/L (15-37); SGPT/ALT 18 U/L (13-61)
[2020-05-27 04:02] LABS: BILIRUBIN,TOTAL 0.4 mg/dL (0.2-1)
[2020-05-27 04:03] LABS: TOT PROT 7.4 g/dl (6.4-8.2)
[2020-05-27 04:04] LABS: ALK PHOS 81 U/L (45-117)
[2020-05-27 08:40] LABS: CHLORIDE 105 mmol/L (98-107); POTASSIUM 3.8 mmol/L (3.5-5.1); SODIUM 138 mmol/L (136-145)
[2020-05-27 08:41] LABS: CALCIUM 8.3 mg/dL (8.5-10.1)
[2020-05-27 08:42] LABS: ANION GAP 5 MMOL/L (8-16); BLOOD UREA NITROGEN 20.7 mg/dL (7-18); CO2 29 mmol/L (21-32); GLUCOSE,RANDOM 99 mg/dL (74-106)
[2020-05-27 08:45] LABS: CREATININE 0.9 mg/dL (0.55-1.3)
[2020-05-27] MEDS ORDERED: FUROSEMIDE 40 MG TABLET (FP) ONE (10:16)
[2020-05-27] MEDS ORDERED: metoPROLOL SUCCINATE 25 MG TAB.SR.24H (FP) ONE (10:16)
[2020-05-27] MEDS ORDERED: SPIRONOLACTONE 25 MG TABLET ONE (10:17)
[2020-05-27] MEDS: SPIRONOLACTONE 25 MG TABLET PO SCH (10:49)
[2020-05-27] MEDS: FUROSEMIDE 40 MG TABLET (FP) PO SCH (10:50)
[2020-05-27] MEDS: SACUBITRIL/VALSARTAN 24 MG-26 MG TABLET PO SCH (10:50)
[2020-05-27 15:32] VITALS: BMI 27.4
[2020-05-28 08:06] LABS: HEMATOCRIT 40.1 % (35.4-49); HEMOGLOBIN 13.6 GM/dL (11.7-16.9); MCHC 33.8 g/dl (32.0-35.9); MEAN CELL VOLUME 94.4 fl (80-96); MEAN PLT VOLUME 9.5 fl (7.5-11.1); PLATELET COUNT 180 K/MM3 (134-434); RBC 4.25 M/mm3 (4.00-5.60); RDW 14.1 % (11.9-15.9); WHITE BLOOD COUNT 4.6 K/mm3 (4.0-10.0)
[2020-05-28 08:30] LABS: POTASSIUM 4.1 mmol/L (3.5-5.1)
[2020-05-28 08:53] LABS: BLOOD UREA NITROGEN 26.3 mg/dL (7-18)
[2020-05-28 09:01] LABS: CALCIUM 8.7 mg/dL (8.5-10.1)
[2020-05-28] MEDS ORDERED: PT OWN MED DRAWER 7, Y5N ONE (09:32)
[2020-05-28] MEDS: SACUBITRIL/VALSARTAN 24 MG-26 MG TABLET PO SCH (10:10)
[2020-05-28] MEDS: FUROSEMIDE 40 MG TABLET (FP) PO SCH (10:11)
[2020-05-28] MEDS: SPIRONOLACTONE 25 MG TABLET PO SCH (10:11)
[2020-05-29] MEDS: FUROSEMIDE 40 MG TABLET (FP) PO SCH (10:10)
[2020-05-29] MEDS: SPIRONOLACTONE 25 MG TABLET PO SCH (10:10)
[2020-05-29] MEDS: SACUBITRIL/VALSARTAN 24 MG-26 MG TABLET PO SCH (10:17)
[2020-05-29] MEDS ORDERED: PT OWN MED DRAWER 7, Y5N ONE (11:55)
[2020-05-30] MEDS: FUROSEMIDE 40 MG TABLET (FP) PO SCH (10:06)
[2020-05-30] MEDS: SPIRONOLACTONE 25 MG TABLET PO SCH (10:07)
[2020-05-30] MEDS ORDERED: PT OWN MED DRAWER 7, Y5N ONE (10:09)
[2020-05-30] MEDS: SACUBITRIL/VALSARTAN 24 MG-26 MG TABLET PO SCH (10:10)
[2020-05-30] MEDS ORDERED: FAMOTIDINE 20 MG TABLET PO ONE (17:36)
[2020-05-31] MEDS ORDERED: PT OWN MED DRAWER 7, Y5N ONE (08:58)
[2020-05-31] MEDS: SACUBITRIL/VALSARTAN 24 MG-26 MG TABLET PO SCH (09:37)
[2020-05-31] MEDS: SPIRONOLACTONE 25 MG TABLET PO SCH (09:37)
[2020-05-31] MEDS: FUROSEMIDE 40 MG TABLET (FP) PO SCH (09:37)
[2020-05-31 10:57] LABS: BASO % 0.9 % (0-2.0); EOS % 2.9 % (0-4.5); HEMATOCRIT 40.9 % (35.4-49); HEMOGLOBIN 13.9 GM/dL (11.7-16.9); LYMPH % 24.2 % (8-40); MCHC 34.1 g/dl (32.0-35.9); MEAN CELL VOLUME 93.8 fl (80-96); MEAN PLT VOLUME 9.4 fl (7.5-11.1); MONO % 13.8 % (3.8-10.2); NEUT % 58.2 % (42.8-82.8); PLATELET COUNT 194 K/MM3 (134-434); RBC 4.36 M/mm3 (4.00-5.60); RDW 13.9 % (11.9-15.9); WHITE BLOOD COUNT 5.6 K/mm3 (4.0-10.0)
[2020-05-31] MEDS: LORATADINE 10 MG TABLET PO SCH (11:03)
[2020-05-31 11:26] LABS: POTASSIUM 4.1 mmol/L (3.5-5.1)
[2020-05-31 11:28] LABS: BLOOD UREA NITROGEN 19.8 mg/dL (7-18); CALCIUM 9.1 mg/dL (8.5-10.1)
[2020-05-31 11:29] LABS: ALBUMIN 3.6 g/dl (3.4-5.0); MAGNESIUM 1.9 mg/dL (1.8-2.4)
[2020-05-31 11:32] LABS: CREATININE 0.9 mg/dL (0.55-1.3)
[2020-05-31 11:33] LABS: BILIRUBIN,TOTAL 0.3 mg/dL (0.2-1); TOT PROT 6.8 g/dl (6.4-8.2)
[2020-06-01 00:24] VITALS: TEMP 97.3
[2020-06-01] MEDS: FUROSEMIDE 40 MG TABLET (FP) PO SCH (09:41)
[2020-06-01] MEDS: SPIRONOLACTONE 25 MG TABLET PO SCH (09:41)
[2020-06-01] MEDS: LORATADINE 10 MG TABLET PO SCH (09:41)
[2020-06-01] MEDS: SACUBITRIL/VALSARTAN 24 MG-26 MG TABLET PO SCH (09:43)
[2020-06-01 10:27] VITALS: BP 103/60; PULSE 80
== END 2020-06-01 13:55 | disposition home or self-care (01) | DRG 201 ==
LOC: JER 02:11 → JERBED 03:43 → J4W 11:42
PROVIDERS: ADMIT Hospitalist; ATTEND Internal Medicine
DX: I49.8 Other specified cardiac arrhythmias (principal); E05.00 Thyrotoxicosis with diffuse goiter without thyrotoxic crisis or storm; I44.7 Left bundle-branch block, unspecified; K21.9 Gastro-esophageal reflux disease without esophagitis; E78.00 Pure hypercholesterolemia, unspecified; I11.0 Hypertensive heart disease with heart failure; I50.22 Chronic systolic (congestive) heart failure; I43 Cardiomyopathy in diseases classified elsewhere; G40.909 Epilepsy, unspecified, not intractable, without status epilepticus
CPT/HCPCS: 36415; 71045-TC-FY; 80048; 80053; 82550; 82553; 83735; 83880; 84436; 84439; 84443; 84479; 84484; 85025; 85027; 85379; 93005; 93010; 93306-TC; 93880-TC; 99285-25; C9803; U0003

== ENCOUNTER 2020-08-27 03:52 | Inpatient (IN) | payer OTHER ==
[2020-08-27 04:32] VITALS: BMI 28.8
[2020-08-27 04:37] LABS: EOS % 2.6 % (0-4.5); HEMATOCRIT 39.8 % (35.4-49); HEMOGLOBIN 13.4 GM/dL (11.7-16.9); LYMPH % 40.2 % (8-40); MCH 31.5 pg (25.7-33.7); MCHC 33.5 g/dl (32.0-35.9); MEAN CELL VOLUME 93.8 fl (80-96); MEAN PLT VOLUME 9.1 fl (7.5-11.1); MONO % 10.7 % (3.8-10.2); NEUT % 45.5 % (42.8-82.8); PLATELET COUNT 177 K/MM3 (134-434); RBC 4.25 M/mm3 (4.00-5.60); RDW 13.4 % (11.9-15.9); WHITE BLOOD COUNT 4.5 K/mm3 (4.0-10.0)
[2020-08-27 04:51] LABS: CHLORIDE 105 mmol/L (98-107); SODIUM 137 mmol/L (136-145)
[2020-08-27 04:53] LABS: CALCIUM 8.6 mg/dL (8.5-10.1)
[2020-08-27 04:54] LABS: ALBUMIN 3.9 g/dl (3.4-5.0); ANION GAP 2 MMOL/L (8-16); CO2 30 mmol/L (21-32); GLUCOSE,RANDOM 109 mg/dL (74-106); MAGNESIUM 1.8 mg/dL (1.8-2.4)
[2020-08-27 04:57] LABS: PHOSPHOROUS 2.4 mg/dL (2.5-4.9); SGOT/AST 22 U/L (15-37); SGPT/ALT 10 U/L (13-61)
[2020-08-27 04:58] LABS: BILIRUBIN,TOTAL 0.5 mg/dL (0.2-1)
[2020-08-27 04:59] LABS: TOT PROT 6.8 g/dl (6.4-8.2)
[2020-08-27 05:00] LABS: ALK PHOS 66 U/L (45-117)
[2020-08-27 05:02] LABS: N-TERMINAL BNP 580.3 pg/ml (5-125)
[2020-08-27] MEDS ORDERED: MAGNESIUM 1GM/D5W 100ML - 100 ML IVPB IVPB ONE (09:15)
[2020-08-27] MEDS ORDERED: NAPH,MB-DB/K PH,MBDB POWDER PACKET PO ONE (09:15)
[2020-08-27] MEDS ORDERED: POTASSIUM CHLORIDE TABS 20 MEQ TABLET.ER (FP) PO ONE (09:15)
[2020-08-27] MEDS ORDERED: SPIRONOLACTONE 25 MG TABLET ONE ×2 (10:06→10:13)
[2020-08-27] MEDS ORDERED: ENOXAPARIN NA (PORCINE) 40 MG/0.4 ML DISP.SYRIN SQ ONE (10:06)
[2020-08-27] MEDS ORDERED: MAGNESIUM 1GM/D5W - 1 GM/100 ML IVPB IVPB ONE (10:06)
[2020-08-27] MEDS ORDERED: metoPROLOL SUCCINATE 25 MG TAB.SR.24H (FP) ONE (10:12)
[2020-08-27] MEDS ORDERED: POTASSIUM CHLORIDE TABS 10 MEQ TABLET.ER (FP) ONE (10:12)
[2020-08-27] MEDS: SACUBITRIL/VALSARTAN 24 MG-26 MG TABLET PO SCH ×2 (11:23→21:45)
[2020-08-27] MEDS: SPIRONOLACTONE 25 MG TABLET PO SCH (11:23)
[2020-08-27] MEDS: FUROSEMIDE 40 MG TABLET (FP) PO SCH (11:23)
[2020-08-27] MEDS: ENOXAPARIN NA (PORCINE) 40 MG/0.4 ML DISP.SYRIN SQ SCH (11:23)
[2020-08-27] MEDS ORDERED: ACETAMINOPHEN 325 MG TABLET (FP) PO ONE (23:04)
[2020-08-28 07:22] LABS: BASO % 0.6 % (0-2.0); HEMATOCRIT 41.4 % (35.4-49); LYMPH % 46.2 % (8-40); MCH 31.7 pg (25.7-33.7); MCHC 33.8 g/dl (32.0-35.9); MEAN CELL VOLUME 93.9 fl (80-96); MONO % 12.9 % (3.8-10.2); NEUT % 37.3 % (42.8-82.8); PLATELET COUNT 171 K/MM3 (134-434); RBC 4.41 M/mm3 (4.00-5.60); RDW 13.5 % (11.9-15.9); WHITE BLOOD COUNT 4.5 K/mm3 (4.0-10.0)
[2020-08-28 07:49] LABS: CALCIUM 8.7 mg/dL (8.5-10.1)
[2020-08-28 07:50] LABS: BLOOD UREA NITROGEN 16.2 mg/dL (7-18)
[2020-08-28 07:52] LABS: CREATININE 0.9 mg/dL (0.55-1.3)
[2020-08-28] MEDS ORDERED: PT OWN MED DRAWER 7, Y5N ONE (09:06)
[2020-08-28] MEDS: ENOXAPARIN NA (PORCINE) 40 MG/0.4 ML DISP.SYRIN SQ SCH (10:04)
[2020-08-28] MEDS: FUROSEMIDE 40 MG TABLET (FP) PO SCH (10:04)
[2020-08-28] MEDS: SPIRONOLACTONE 25 MG TABLET PO SCH (10:04)
[2020-08-28] MEDS: SACUBITRIL/VALSARTAN 24 MG-26 MG TABLET PO SCH ×2 (10:05→21:12)
[2020-08-29 07:18] LABS: HEMATOCRIT 42.6 % (35.4-49); HEMOGLOBIN 14.6 GM/dL (11.7-16.9); MCH 31.8 pg (25.7-33.7); MCHC 34.3 g/dl (32.0-35.9); MEAN CELL VOLUME 92.7 fl (80-96); MEAN PLT VOLUME 8.9 fl (7.5-11.1); PLATELET COUNT 170 K/MM3 (134-434); RDW 13.1 % (11.9-15.9); WHITE BLOOD COUNT 4.7 K/mm3 (4.0-10.0)
[2020-08-29 07:43] LABS: BLOOD UREA NITROGEN 26.1 mg/dL (7-18); CALCIUM 8.7 mg/dL (8.5-10.1)
[2020-08-29 07:47] LABS: CREATININE 1.1 mg/dL (0.55-1.3); PHOSPHOROUS 4.2 mg/dL (2.5-4.9)
[2020-08-29 09:13] VITALS: BP 101/68; PULSE 84; TEMP 98.4
[2020-08-29] MEDS ORDERED: PT OWN MED DRAWER 7, Y5N ONE (10:21)
[2020-08-29] MEDS: SACUBITRIL/VALSARTAN 24 MG-26 MG TABLET PO SCH (10:24)
[2020-08-29] MEDS: SPIRONOLACTONE 25 MG TABLET PO SCH (10:24)
[2020-08-29] MEDS: FUROSEMIDE 40 MG TABLET (FP) PO SCH (10:24)
[2020-08-29] MEDS: ENOXAPARIN NA (PORCINE) 40 MG/0.4 ML DISP.SYRIN SQ SCH (10:24)
== END 2020-08-29 12:03 | disposition home or self-care (01) | DRG 201 ==
LOC: JER 03:52 → JERBED 05:24 → J4W 18:24
PROVIDERS: ADMIT Hospitalist; ATTEND Internal Medicine
DX: I47.1 Supraventricular tachycardia (principal); R00.2 Palpitations; I42.8 Other cardiomyopathies; E05.00 Thyrotoxicosis with diffuse goiter without thyrotoxic crisis or storm; G40.909 Epilepsy, unspecified, not intractable, without status epilepticus; F41.9 Anxiety disorder, unspecified; I44.7 Left bundle-branch block, unspecified; R07.89 Other chest pain; R42 Dizziness and giddiness; K21.9 Gastro-esophageal reflux disease without esophagitis; E78.00 Pure hypercholesterolemia, unspecified; I11.0 Hypertensive heart disease with heart failure; I50.22 Chronic systolic (congestive) heart failure; R94.31 Abnormal electrocardiogram [ECG] [EKG]
CPT/HCPCS: 36415; 71046-TC-FY; 80048; 80053; 80061; 82550; 82553; 83036; 83721; 83735; 83880; 84100; 84439; 84443; 84484; 85025; 85027; 93005; 93010; 99285-25; C9803; U0003; U0005

== ENCOUNTER 2020-09-24 21:15 | Observation (INO) | payer OTHER ==
[2020-09-24 21:21] VITALS: BMI 29.5
[2020-09-24 22:35] LABS: BASO % 0.9 % (0-2.0); HEMATOCRIT 42.2 % (35.4-49); HEMOGLOBIN 13.9 GM/dL (11.7-16.9); LYMPH % 35.2 % (8-40); MCH 30.9 pg (25.7-33.7); MCHC 32.8 g/dl (32.0-35.9); MEAN CELL VOLUME 94.2 fl (80-96); MEAN PLT VOLUME 8.9 fl (7.5-11.1); MONO % 9.7 % (3.8-10.2); NEUT % 48.2 % (42.8-82.8); PLATELET COUNT 160 K/MM3 (134-434); RBC 4.48 M/mm3 (4.00-5.60); RDW 14.2 % (11.9-15.9); WHITE BLOOD COUNT 5.9 K/mm3 (4.0-10.0)
[2020-09-24 22:43] LABS: INR 1.02 (0.83-1.09); PROTHROMBIN TIME (PATIENT) 12.5 SEC (9.7-13.0)
[2020-09-24 22:45] LABS: ACTIVATED PTT 26.4 SECONDS (25.2-36.5)
[2020-09-24 22:56] LABS: ALBUMIN 3.9 g/dl (3.4-5.0); CALCIUM 8.9 mg/dL (8.5-10.1)
[2020-09-24 22:59] LABS: CREATININE 0.9 mg/dL (0.55-1.3)
[2020-09-24 23:01] LABS: BILIRUBIN,TOTAL 0.3 mg/dL (0.2-1)
[2020-09-24 23:20] LABS: N-TERMINAL BNP 655.3 pg/ml (5-125)
[2020-09-24] MEDS ORDERED: ASPIRIN 81 MG CHEWABLE TABLETS PO ONE (23:48)
[2020-09-24] MEDS ORDERED: ASPIRIN 81 MG CHEWABLE TABLETS ONE (23:58)
[2020-09-25] MEDS: FUROSEMIDE 40 MG TABLET (FP) PO SCH (09:57)
[2020-09-25] MEDS: SPIRONOLACTONE 25 MG TABLET PO SCH (09:57)
[2020-09-25] MEDS: ENOXAPARIN NA (PORCINE) 40 MG/0.4 ML DISP.SYRIN SQ SCH ×2 (09:57→10:05)
[2020-09-25] MEDS: SACUBITRIL/VALSARTAN 24 MG-26 MG TABLET PO SCH ×2 (09:57→22:16)
[2020-09-25 14:39] LABS: CHOLESTEROL 202 mg/dL (50-200); TRIGLYCERIDES 71 mg/dL (0-150)
[2020-09-25 14:40] LABS: LDL CHOLESTEROL (ONLY SJRH) 111 mg/dL (5-100)
[2020-09-25 14:42] LABS: HDL CHOLESTEROL 57 mg/dL (40-60)
[2020-09-26 08:43] VITALS: BP 101/60; PULSE 70; TEMP 98
[2020-09-26] MEDS ORDERED: PT OWN MED DRAWER 7, Y5N ONE (08:51)
[2020-09-26] MEDS: SPIRONOLACTONE 25 MG TABLET PO SCH (09:26)
[2020-09-26] MEDS: FUROSEMIDE 40 MG TABLET (FP) PO SCH (09:26)
[2020-09-26] MEDS: SACUBITRIL/VALSARTAN 24 MG-26 MG TABLET PO SCH (09:27)
[2020-09-26] MEDS: ENOXAPARIN NA (PORCINE) 40 MG/0.4 ML DISP.SYRIN SQ SCH (09:27)
== END 2020-09-26 10:00 | disposition home or self-care (01) ==
LOC: JER 21:15 → JERBED 23:20 → INTOOBSV 23:20 → J4W 09-25 02:01
PROVIDERS: ADMIT Hospitalist; ATTEND Nurse Practitioner Family
DX: E05.00 Thyrotoxicosis with diffuse goiter without thyrotoxic crisis or storm (principal); R07.9 Chest pain, unspecified; I42.8 Other cardiomyopathies; Z91.013 Allergy to seafood
CPT/HCPCS: 36415; 71046-TC-FY; 80053; 80061; 82550; 82553; 83036; 83721; 83880; 84443; 84484; 85025; 85610; 85730; 93005; 93010; 99285-25; C9803; G0378; U0003; U0005

== ENCOUNTER 2020-10-17 10:18 | Observation (INO) | payer OTHER ==
[2020-10-17 10:24] VITALS: BMI 29.7
[2020-10-17] MEDS ORDERED: ASPIRIN 81 MG CHEWABLE TABLETS PO ONE (10:46)
[2020-10-17] MEDS ORDERED: ASPIRIN 81 MG CHEWABLE TABLETS ONE (10:47)
[2020-10-17] MEDS ORDERED: SODIUM CHLORIDE 0.9% 500 ML INFUS.BAG IV ONE (10:47)
[2020-10-17 11:25] LABS: BASO % 1.4 % (0-2.0); HEMATOCRIT 40.5 % (35.4-49); HEMOGLOBIN 13.7 GM/dL (11.7-16.9); LYMPH % 31.2 % (8-40); MCH 31.5 pg (25.7-33.7); MCHC 33.7 g/dl (32.0-35.9); MEAN CELL VOLUME 93.4 fl (80-96); MEAN PLT VOLUME 8.4 fl (7.5-11.1); MONO % 11.8 % (3.8-10.2); NEUT % 52.6 % (42.8-82.8); PLATELET COUNT 179 10^3/uL (134-434); RBC 4.34 M/mm3 (4.00-5.60); RDW 13.8 % (11.9-15.9); WHITE BLOOD COUNT 3.4 K/mm3 (4.0-10.0)
[2020-10-17 11:33] LABS: INR 1.08 (0.83-1.09)
[2020-10-17 11:36] LABS: ACTIVATED PTT 27.2 SECONDS (25.2-36.5)
[2020-10-17 11:51] LABS: CHLORIDE 105 mmol/L (98-107); SODIUM 141 mmol/L (136-145)
[2020-10-17 11:53] LABS: CALCIUM 8.1 mg/dL (8.5-10.1)
[2020-10-17 11:54] LABS: ALBUMIN 3.9 g/dl (3.4-5.0); ANION GAP 6 MMOL/L (8-16); BLOOD UREA NITROGEN 10.4 mg/dL (7-18); CO2 30 mmol/L (21-32); GLUCOSE,RANDOM 123 mg/dL (74-106)
[2020-10-17 11:57] LABS: CREATININE 0.9 mg/dL (0.55-1.3); SGOT/AST 30 U/L (15-37); SGPT/ALT 17 U/L (13-61)
[2020-10-17 11:58] LABS: BILIRUBIN,TOTAL 0.5 mg/dL (0.2-1); TOT PROT 6.7 g/dl (6.4-8.2)
[2020-10-17 11:59] LABS: ALK PHOS 64 U/L (45-117)
[2020-10-17 12:02] LABS: N-TERMINAL BNP 338.2 pg/ml (5-125)
[2020-10-17 12:44] LABS: CHOLESTEROL 208 mg/dL (50-200); TRIGLYCERIDES 36 mg/dL (0-150)
[2020-10-17 12:46] LABS: LDL CHOLESTEROL (ONLY SJRH) 124 mg/dL (5-100)
[2020-10-17 12:47] LABS: HDL CHOLESTEROL 59 mg/dL (40-60)
[2020-10-17] MEDS ORDERED: MELATONIN 5 MG TABLETS PO ONE (20:51)
[2020-10-17] MEDS ORDERED: SACUBITRIL/VALSARTAN 24 MG-26 MG TABLET PO SCH (22:00)
[2020-10-17 23:19] VITALS: TEMP 97.8
[2020-10-18 02:32] VITALS: BP 93/55; PULSE 72
[2020-10-18] MEDS ORDERED: FUROSEMIDE 20 MG TABLET (FP) PO SCH (10:00)
[2020-10-18] MEDS ORDERED: SPIRONOLACTONE 25 MG TABLET PO SCH (10:00)
[2020-10-18] MEDS ORDERED: ENOXAPARIN NA (PORCINE) 40 MG/0.4 ML DISP.SYRIN SQ SCH (10:00)
== END 2020-10-18 08:55 | disposition left against medical advice (07) ==
LOC: JER 10:18 → JERBED 12:15 → J4W 15:57
PROVIDERS: ATTEND Internal Medicine
PROC: 3E0337Z Introduction of Electrolytic and Water Balance Substance into Peripheral Vein, Percutaneous Approach (ICD-10-PCS; principal; 2020-10-17)
DX: R07.9 Chest pain, unspecified (principal); E05.00 Thyrotoxicosis with diffuse goiter without thyrotoxic crisis or storm; R56.9 Unspecified convulsions; E78.00 Pure hypercholesterolemia, unspecified; K21.9 Gastro-esophageal reflux disease without esophagitis; I44.7 Left bundle-branch block, unspecified; I11.0 Hypertensive heart disease with heart failure; Z91.013 Allergy to seafood; Z87.891 Personal history of nicotine dependence
CPT/HCPCS: 36415; 71045-TC-FY; 80053; 80061; 83721; 83880; 84443; 84484; 85025; 85610; 85730; 93005; 93010; 96360; 99285-25; C9803; G0378; U0003; U0005

== ENCOUNTER 2020-11-12 19:36 | Observation (INO) | payer OTHER ==
[2020-11-12 21:20] LABS: BASO % 1.3 % (0-2.0); EOS % 3.1 % (0-4.5); HEMATOCRIT 39.6 % (35.4-49); HEMOGLOBIN 13.4 GM/dL (11.7-16.9); LYMPH % 30.8 % (8-40); MCH 31.7 pg (25.7-33.7); MCHC 33.9 g/dl (32.0-35.9); MEAN CELL VOLUME 93.5 fl (80-96); MEAN PLT VOLUME 8.8 fl (7.5-11.1); MONO % 8.1 % (3.8-10.2); NEUT % 56.7 % (42.8-82.8); PLATELET COUNT 159 10^3/uL (134-434); RBC 4.23 M/mm3 (4.00-5.60); RDW 13.6 % (11.9-15.9); WHITE BLOOD COUNT 6.1 K/mm3 (4.0-10.0)
[2020-11-12 21:27] LABS: INR 1.1 (0.83-1.09); PROTHROMBIN TIME (PATIENT) 13.5 SEC (9.7-13.0)
[2020-11-12 21:29] LABS: ACTIVATED PTT 25.3 SECONDS (25.2-36.5)
[2020-11-12] MEDS ORDERED: SODIUM CHLORIDE 0.9% 500 ML INFUS.BAG IV ONE (21:29)
[2020-11-12 21:39] LABS: CHLORIDE 102 mmol/L (98-107); SODIUM 140 mmol/L (136-145)
[2020-11-12 21:43] LABS: ANION GAP 7 MMOL/L (8-16); BLOOD UREA NITROGEN 18.7 mg/dL (7-18); CALCIUM 8.7 mg/dL (8.5-10.1); CO2 30 mmol/L (21-32); GLUCOSE,RANDOM 111 mg/dL (74-106)
[2020-11-12 21:46] LABS: CREATININE 1.1 mg/dL (0.55-1.3); SGOT/AST 23 U/L (15-37); SGPT/ALT 14 U/L (13-61)
[2020-11-12 21:48] LABS: BILIRUBIN,TOTAL 0.5 mg/dL (0.2-1); TOT PROT 6.9 g/dl (6.4-8.2)
[2020-11-12 21:49] LABS: ALK PHOS 65 U/L (45-117)
[2020-11-12 21:52] LABS: N-TERMINAL BNP 932.3 pg/ml (5-125)
[2020-11-12] MEDS ORDERED: FUROSEMIDE 40 MG/4 ML INJECTABLE VIAL IVPUSH ONE (23:51)
[2020-11-12] MEDS ORDERED: POTASSIUM CHLORIDE TABS 20 MEQ TABLET.ER (FP) PO ONE (23:52)
[2020-11-13] MEDS: KCL 10 MEQ IVPB 10 MEQ/100 ML INFUS.BAG IVPB SCH ×2 (00:56→02:04)
[2020-11-13 02:42] VITALS: BMI 30.1
[2020-11-13 02:42] LABS: PH,URINE 6.5 (5.0-8.0); URINE APPEARANCE CLEAR; URINE BILIRUBIN NEGATIVE (NEGATIVE); URINE COLOR YELLOW; URINE GLUCOSE (UA) NEGATIVE (NEGATIVE); URINE KETONE NEGATIVE (NEGATIVE); URINE LEUK ESTERASE NEGATIVE (NEGATIVE); URINE NITRITE NEGATIVE (NEGATIVE); URINE PROTEIN NEGATIVE (NEGATIVE); URINE UROBILINOGEN 0.2 mg/dL (0.2-1.0)
[2020-11-13 03:00] LABS: METHADONE, UR NEGATIVE (NEGATIVE); OPIATES, URI NEGATIVE (NEGATIVE); PHENCYCLIDINE,URINE NEGATIVE (NEGATIVE); URINE AMPHETAMINES NEGATIVE (NEGATIVE); URINE BENZODIAZEPINES NEGATIVE (NEGATIVE)
[2020-11-13 03:01] LABS: COCAINE, UR NEGATIVE (NEGATIVE)
[2020-11-13 03:02] LABS: URINE BARBITURATES NEGATIVE (NEGATIVE)
[2020-11-13 07:47] LABS: HEMATOCRIT 38.1 % (35.4-49); HEMOGLOBIN 13.2 GM/dL (11.7-16.9); MCH 32.7 pg (25.7-33.7); MCHC 34.8 g/dl (32.0-35.9); MEAN CELL VOLUME 94.1 fl (80-96); MEAN PLT VOLUME 8.8 fl (7.5-11.1); PLATELET COUNT 148 10^3/uL (134-434); RBC 4.05 M/mm3 (4.00-5.60); RDW 13.7 % (11.9-15.9); WHITE BLOOD COUNT 5.5 K/mm3 (4.0-10.0)
[2020-11-13 08:03] LABS: ALBUMIN 3.8 g/dl (3.4-5.0); BLOOD UREA NITROGEN 16.3 mg/dL (7-18); MAGNESIUM 1.7 mg/dL (1.8-2.4)
[2020-11-13 08:06] LABS: CREATININE 0.9 mg/dL (0.55-1.3); PHOSPHOROUS 3.1 mg/dL (2.5-4.9)
[2020-11-13 08:07] LABS: BILIRUBIN,TOTAL 0.4 mg/dL (0.2-1); CALCIUM 8.1 mg/dL (8.5-10.1)
[2020-11-13 08:08] LABS: TOT PROT 6.4 g/dl (6.4-8.2)
[2020-11-13] MEDS ORDERED: MAGNESIUM OXIDE 400 MG TABLET (FP) PO ONE (08:45)
[2020-11-13] MEDS ORDERED: POTASSIUM CHLORIDE TABS 20 MEQ TABLET.ER (FP) PO ONE (08:50)
[2020-11-13] MEDS: ENOXAPARIN NA (PORCINE) 40 MG/0.4 ML DISP.SYRIN SQ SCH ×2 (09:43→09:45)
[2020-11-13] MEDS: SACUBITRIL/VALSARTAN 24 MG-26 MG TABLET PO SCH ×2 (11:09→21:46)
[2020-11-13] MEDS: FUROSEMIDE 40 MG TABLET (FP) PO SCH (11:09)
[2020-11-13] MEDS: SPIRONOLACTONE 25 MG TABLET PO SCH (11:09)
[2020-11-13] MEDS: ACETAMINOPHEN 325 MG TABLET (FP) PO PRN (11:36)
[2020-11-13 14:35] LABS: HIV INTERPRETATION NEGATIVE (NEGATIVE)
[2020-11-14 08:09] LABS: HEMATOCRIT 39.9 % (35.4-49); HEMOGLOBIN 13.7 GM/dL (11.7-16.9); MCH 32.4 pg (25.7-33.7); MCHC 34.4 g/dl (32.0-35.9); MEAN CELL VOLUME 94.1 fl (80-96); MEAN PLT VOLUME 9.1 fl (7.5-11.1); PLATELET COUNT 165 10^3/uL (134-434); RBC 4.23 M/mm3 (4.00-5.60); RDW 13.5 % (11.9-15.9); WHITE BLOOD COUNT 4.8 K/mm3 (4.0-10.0)
[2020-11-14 08:11] LABS: CHLORIDE 103 mmol/L (98-107); SODIUM 139 mmol/L (136-145)
[2020-11-14 08:15] LABS: CALCIUM 8.2 mg/dL (8.5-10.1)
[2020-11-14 08:16] LABS: ANION GAP 6 MMOL/L (8-16); BLOOD UREA NITROGEN 14.5 mg/dL (7-18); CO2 30 mmol/L (21-32); GLUCOSE,RANDOM 96 mg/dL (74-106); MAGNESIUM 1.7 mg/dL (1.8-2.4)
[2020-11-14 08:19] LABS: CREATININE 0.9 mg/dL (0.55-1.3); PHOSPHOROUS 3.3 mg/dL (2.5-4.9)
[2020-11-14] MEDS: ACETAMINOPHEN 325 MG TABLET (FP) PO PRN ×2 (08:57→16:38)
[2020-11-14] MEDS: FUROSEMIDE 40 MG TABLET (FP) PO SCH (09:01)
[2020-11-14] MEDS: SACUBITRIL/VALSARTAN 24 MG-26 MG TABLET PO SCH ×2 (09:01→23:35)
[2020-11-14] MEDS: ENOXAPARIN NA (PORCINE) 40 MG/0.4 ML DISP.SYRIN SQ SCH (09:01)
[2020-11-14] MEDS: SPIRONOLACTONE 25 MG TABLET PO SCH (09:01)
[2020-11-14] MEDS: POTASSIUM CHLORIDE ORAL LIQUID 20 MEQ/15 ML PO SCH (11:10)
[2020-11-14] MEDS: MAGNESIUM OXIDE 400 MG TABLET (FP) PO SCH (11:11)
[2020-11-14] MEDS ORDERED: PT OWN MED DRAWER 7, Y5N ONE (11:11)
[2020-11-14] MEDS ORDERED: FUROSEMIDE 40 MG TABLET (FP) PO ONE (16:00)
[2020-11-15] MEDS ORDERED: MELATONIN 5 MG TABLETS PO PRN (00:57)
[2020-11-15] MEDS: ACETAMINOPHEN 325 MG TABLET (FP) PO PRN (01:09)
[2020-11-15 07:52] LABS: CALCIUM 8.3 mg/dL (8.5-10.1)
[2020-11-15 07:53] LABS: BLOOD UREA NITROGEN 18.4 mg/dL (7-18); MAGNESIUM 1.7 mg/dL (1.8-2.4)
[2020-11-15 07:56] LABS: PHOSPHOROUS 5.2 mg/dL (2.5-4.9)
[2020-11-15 09:14] VITALS: BP 104/57; PULSE 89; TEMP 98.2
[2020-11-15] MEDS: MAGNESIUM OXIDE 400 MG TABLET (FP) PO SCH (09:14)
[2020-11-15] MEDS: FUROSEMIDE 40 MG TABLET (FP) PO SCH (09:14)
[2020-11-15] MEDS: SPIRONOLACTONE 25 MG TABLET PO SCH (09:14)
[2020-11-15] MEDS: SACUBITRIL/VALSARTAN 24 MG-26 MG TABLET PO SCH (09:14)
[2020-11-15] MEDS: ENOXAPARIN NA (PORCINE) 40 MG/0.4 ML DISP.SYRIN SQ SCH (09:17)
[2020-11-15] MEDS: POTASSIUM CHLORIDE ORAL LIQUID 20 MEQ/15 ML PO SCH (09:17)
== END 2020-11-15 12:33 | disposition home or self-care (01) ==
LOC: JER 19:36 → JERBED 22:06 → J4S 11-13 00:15 → OBSVTOIN 11-13 00:31 → INTOOBSV 11-13 00:31
PROVIDERS: ADMIT Internal Medicine; ATTEND Internal Medicine
PROC: 3E033GC Introduction of Other Therapeutic Substance into Peripheral Vein, Percutaneous Approach (ICD-10-PCS; principal; 2020-11-12)
PROC: 3E0337Z Introduction of Electrolytic and Water Balance Substance into Peripheral Vein, Percutaneous Approach (ICD-10-PCS; 2020-11-12)
DX: I50.20 Unspecified systolic (congestive) heart failure (principal); I42.8 Other cardiomyopathies; E05.00 Thyrotoxicosis with diffuse goiter without thyrotoxic crisis or storm; G40.909 Epilepsy, unspecified, not intractable, without status epilepticus; F41.9 Anxiety disorder, unspecified; R55 Syncope and collapse; R07.89 Other chest pain; Z91.013 Allergy to seafood
CPT/HCPCS: 36415; 71046-TC-FY; 73610-TC-RT-FY; 80048; 80053; 80307; 81003; 82550; 82553; 83735; 83880; 84100; 84439; 84443; 84479; 84484; 85025; 85027; 85610; 85730; 87389; 93005; 93010; 96361; 96374; 99285-25; C9803; G0378; U0003; U0005

== ENCOUNTER 2021-01-11 20:35 | Observation (INO) | payer OTHER ==
[2021-01-11] MEDS ORDERED: KETOROLAC TROMETHAMINE 30 MG/1 ML VIAL IVPUSH ONE (21:53)
[2021-01-11] MEDS ORDERED: ACETAMINOPHEN 1000 MG/100 ML VIAL (NON FORMULARY) IVPB ONE (21:53)
[2021-01-11] MEDS ORDERED: ACETAMINOPHEN INJECTION 100 ML IVPB ONE (22:31)
[2021-01-11] MEDS ORDERED: KETOROLAC TROMETHAMINE 30 MG/1 ML VIAL ONE (22:32)
[2021-01-11 22:43] LABS: EOS % 3.3 % (0-4.5); HEMOGLOBIN 14.1 GM/dL (11.7-16.9); LYMPH % 44.1 % (8-40); MCH 31.5 pg (25.7-33.7); MCHC 34.3 g/dl (32.0-35.9); MEAN CELL VOLUME 91.9 fl (80-96); MEAN PLT VOLUME 8.7 fl (7.5-11.1); MONO % 12.4 % (3.8-10.2); NEUT % 39.2 % (42.8-82.8); PLATELET COUNT 177 10^3/uL (134-434); RBC 4.46 M/mm3 (4.00-5.60); RDW 13.3 % (11.9-15.9); WHITE BLOOD COUNT 5.9 K/mm3 (4.0-10.0)
[2021-01-11 23:00] LABS: CHLORIDE 105 mmol/L (98-107); SODIUM 140 mmol/L (136-145)
[2021-01-11 23:02] LABS: ALBUMIN 3.6 g/dl (3.4-5.0); BLOOD UREA NITROGEN 28.5 mg/dL (7-18)
[2021-01-11 23:03] LABS: ANION GAP 6 MMOL/L (8-16); CO2 29 mmol/L (21-32); GLUCOSE,RANDOM 97 mg/dL (74-106)
[2021-01-11 23:06] LABS: CREATININE 1.2 mg/dL (0.55-1.3); SGOT/AST 20 U/L (15-37); SGPT/ALT 12 U/L (13-61)
[2021-01-11 23:07] LABS: BILIRUBIN,TOTAL 0.3 mg/dL (0.2-1); TOT PROT 6.8 g/dl (6.4-8.2)
[2021-01-11 23:08] LABS: ALK PHOS 73 U/L (45-117)
[2021-01-11 23:11] LABS: N-TERMINAL BNP 418.4 pg/ml (5-125)
[2021-01-12] MEDS ORDERED: MORPHINE SULFATE 2 MG/ML VIAL IVPUSH PRN (01:56)
[2021-01-12 06:58] LABS: BASO % 0.8 % (0-2.0); EOS % 4.6 % (0-4.5); HEMOGLOBIN 13.4 GM/dL (11.7-16.9); LYMPH % 43.7 % (8-40); MCH 31.4 pg (25.7-33.7); MCHC 34.3 g/dl (32.0-35.9); MEAN CELL VOLUME 91.3 fl (80-96); MEAN PLT VOLUME 8.8 fl (7.5-11.1); MONO % 11.3 % (3.8-10.2); NEUT % 39.6 % (42.8-82.8); PLATELET COUNT 155 10^3/uL (134-434); RBC 4.27 M/mm3 (4.00-5.60); RDW 13.2 % (11.9-15.9); WHITE BLOOD COUNT 4.7 K/mm3 (4.0-10.0)
[2021-01-12 07:23] LABS: CALCIUM 8.8 mg/dL (8.5-10.1)
[2021-01-12 07:24] LABS: ALBUMIN 3.5 g/dl (3.4-5.0); BLOOD UREA NITROGEN 29.4 mg/dL (7-18); MAGNESIUM 1.7 mg/dL (1.8-2.4)
[2021-01-12 07:26] LABS: BILIRUBIN,TOTAL 0.4 mg/dL (0.2-1); TOT PROT 6.5 g/dl (6.4-8.2)
[2021-01-12 07:27] LABS: CREATININE 1.2 mg/dL (0.55-1.3)
[2021-01-12] MEDS ORDERED: metoPROLOL SUCCINATE 25 MG TAB.SR.24H (FP) ONE (09:45)
[2021-01-12] MEDS ORDERED: SPIRONOLACTONE 25 MG TABLET ONE (09:45)
[2021-01-12] MEDS ORDERED: MAGNESIUM OXIDE 400 MG TABLET (FP) ONE (09:45)
[2021-01-12] MEDS ORDERED: POTASSIUM CHLORIDE TABS 10 MEQ TABLET.ER (FP) ONE (09:45)
[2021-01-12] MEDS ORDERED: ENOXAPARIN NA (PORCINE) 40 MG/0.4 ML DISP.SYRIN SQ ONE (09:46)
[2021-01-12] MEDS: SPIRONOLACTONE 25 MG TABLET PO SCH (09:54)
[2021-01-12] MEDS: POTASSIUM CHLORIDE TABS 20 MEQ TABLET.ER (FP) PO SCH (09:54)
[2021-01-12] MEDS: SACUBITRIL/VALSARTAN 24 MG-26 MG TABLET PO SCH ×2 (09:54→22:37)
[2021-01-12] MEDS: ENOXAPARIN NA (PORCINE) 40 MG/0.4 ML DISP.SYRIN SQ SCH (09:55)
[2021-01-12] MEDS: MAGNESIUM OXIDE 400 MG TABLET (FP) PO SCH (09:56)
[2021-01-12] MEDS: FUROSEMIDE 40 MG TABLET (FP) PO SCH (10:29)
[2021-01-12] MEDS ORDERED: ACETAMINOPHEN INJECTION 100 ML IVPB ONE (12:48)
[2021-01-12] MEDS ORDERED: ACETAMINOPHEN 1000 MG/100 ML VIAL (NON FORMULARY) IVPB ONE ×2 (13:45→21:08)
[2021-01-12] MEDS ORDERED: MAGNESIUM SULF 50% (8.12 MEQ/2 ML-1 GM VIAL) IVPB ONE (18:10)
[2021-01-12] MEDS ORDERED: MAGNESIUM SULFATE IN WATER 2 GM/50 ML IVPB IVPB ONE (18:29)
[2021-01-12] MEDS: LORazepam 0.5 MG TABLET PO PRN (22:37)
[2021-01-13] MEDS: LORazepam 0.5 MG TABLET PO PRN (00:21)
[2021-01-13 04:14] VITALS: BMI 31.1
[2021-01-13 06:51] LABS: BASO % 1.1 % (0-2.0); EOS % 3.9 % (0-4.5); HEMOGLOBIN 13.4 GM/dL (11.7-16.9); LYMPH % 36.1 % (8-40); MCH 31.5 pg (25.7-33.7); MCHC 34.4 g/dl (32.0-35.9); MEAN CELL VOLUME 91.6 fl (80-96); MONO % 11.3 % (3.8-10.2); NEUT % 47.6 % (42.8-82.8); PLATELET COUNT 162 10^3/uL (134-434); RBC 4.25 M/mm3 (4.00-5.60); RDW 13.1 % (11.9-15.9); WHITE BLOOD COUNT 4.9 K/mm3 (4.0-10.0)
[2021-01-13 07:20] LABS: ALBUMIN 3.2 g/dl (3.4-5.0); CALCIUM 8.3 mg/dL (8.5-10.1)
[2021-01-13 07:21] LABS: BLOOD UREA NITROGEN 21.9 mg/dL (7-18); MAGNESIUM 2.3 mg/dL (1.8-2.4)
[2021-01-13 07:23] LABS: CREATININE 0.9 mg/dL (0.55-1.3)
[2021-01-13 07:25] LABS: BILIRUBIN,TOTAL 0.5 mg/dL (0.2-1); TOT PROT 6.1 g/dl (6.4-8.2)
[2021-01-13] MEDS ORDERED: ACETAMINOPHEN 1000 MG/100 ML VIAL (NON FORMULARY) IVPB ONE (09:30)
[2021-01-13] MEDS ORDERED: PT OWN MED DRAWER 7, Y5N ONE (09:42)
[2021-01-13] MEDS: POTASSIUM CHLORIDE TABS 20 MEQ TABLET.ER (FP) PO SCH (10:02)
[2021-01-13] MEDS: SPIRONOLACTONE 25 MG TABLET PO SCH (10:02)
[2021-01-13] MEDS: MAGNESIUM OXIDE 400 MG TABLET (FP) PO SCH (10:02)
[2021-01-13] MEDS: FUROSEMIDE 40 MG TABLET (FP) PO SCH (10:02)
[2021-01-13] MEDS: ENOXAPARIN NA (PORCINE) 40 MG/0.4 ML DISP.SYRIN SQ SCH (10:03)
[2021-01-13] MEDS: SACUBITRIL/VALSARTAN 24 MG-26 MG TABLET PO SCH (10:03)
[2021-01-13 13:26] VITALS: BP 121/62; PULSE 86; TEMP 98.4
== END 2021-01-13 14:15 | disposition home or self-care (01) ==
LOC: JER 20:35 → JERBED 21:59 → INTOOBSV 21:59 → UNDOADMOB 21:59 → J4W 01-12 20:33 → JERBED 01-12 20:33 → J4W 01-12 21:59 → JERBED 01-13 08:40 → J4W 01-13 08:40
PROVIDERS: ADMIT Internal Medicine; ATTEND Nurse Practitioner Family
PROC: 3E033GC Introduction of Other Therapeutic Substance into Peripheral Vein, Percutaneous Approach (ICD-10-PCS; principal; 2021-01-13)
PROC: 3E033NZ Introduction of Analgesics, Hypnotics, Sedatives into Peripheral Vein, Percutaneous Approach (ICD-10-PCS; 2021-01-13)
PROC: 3E013GC Introduction of Other Therapeutic Substance into Subcutaneous Tissue, Percutaneous Approach (ICD-10-PCS; 2021-01-13)
DX: R07.89 Other chest pain (principal); I11.0 Hypertensive heart disease with heart failure; I44.7 Left bundle-branch block, unspecified; I50.21 Acute systolic (congestive) heart failure; I42.8 Other cardiomyopathies; I47.2 Ventricular tachycardia; E05.00 Thyrotoxicosis with diffuse goiter without thyrotoxic crisis or storm; K21.9 Gastro-esophageal reflux disease without esophagitis; E78.5 Hyperlipidemia, unspecified; G44.89 Other headache syndrome; G40.909 Epilepsy, unspecified, not intractable, without status epilepticus; R93.1 Abnormal findings on diagnostic imaging of heart and coronary circulation; F41.9 Anxiety disorder, unspecified; K73.9 Chronic hepatitis, unspecified; E05.90 Thyrotoxicosis, unspecified without thyrotoxic crisis or storm; E66.9 Obesity, unspecified; Z68.31 Body mass index [BMI] 31.0-31.9, adult
CPT/HCPCS: 36415; 70450-TC; 71046-TC-FY; 80053; 82550; 82553; 83735; 83880; 84100; 84439; 84443; 84481; 84484; 85025; 93005; 93010; 96372; 96374; 96375; 96376; 99285-25; C9803; G0378; J0131; U0003; U0005

== ENCOUNTER 2021-06-02 19:02 | Inpatient (IN) | payer OTHER ==
[2021-06-02 20:31] LABS: BASO % 0.9 % (0-2.0); EOS % 2.5 % (0-4.5); HEMATOCRIT 44.3 % (35.4-49); HEMOGLOBIN 14.8 GM/dL (11.7-16.9); LYMPH % 29.2 % (8-40); MCH 30.6 pg (25.7-33.7); MCHC 33.4 g/dl (32.0-35.9); MEAN CELL VOLUME 91.6 fl (80-96); MEAN PLT VOLUME 8.8 fl (7.5-11.1); MONO % 8.6 % (3.8-10.2); NEUT % 58.8 % (42.8-82.8); PLATELET COUNT 196 10^3/uL (134-434); RBC 4.83 M/mm3 (4.00-5.60); RDW 13.9 % (11.9-15.9)
[2021-06-02 20:38] LABS: INR 1.38 (0.83-1.09); PROTHROMBIN TIME (PATIENT) 15.9 SEC (9.7-13.0)
[2021-06-02 20:51] LABS: CALCIUM 9.3 mg/dL (8.5-10.1)
[2021-06-02 20:52] LABS: ALBUMIN 4.4 g/dl (3.4-5.0); BLOOD UREA NITROGEN 34.2 mg/dL (7-18)
[2021-06-02 20:55] LABS: CREATININE 1.9 mg/dL (0.55-1.3)
[2021-06-02 20:57] LABS: BILIRUBIN,TOTAL 0.4 mg/dL (0.2-1); TOT PROT 7.4 g/dl (6.4-8.2)
[2021-06-02] MEDS ORDERED: SODIUM CHLORIDE 0.9% 500 ML INFUS.BAG IV ONE (21:41)
[2021-06-03] MEDS ORDERED: ACETAMINOPHEN 325 MG TABLET (FP) PO PRN (02:43)
[2021-06-03] MEDS ORDERED: APIXABAN 5 MG TABLET PO SCH (10:00)
[2021-06-03] MEDS ORDERED: SPIRONOLACTONE 25 MG TABLET PO SCH (10:00)
[2021-06-03] MEDS ORDERED: METHIMAZOLE 5 MG TABLET PO SCH ×2 (10:00)
[2021-06-03] MEDS ORDERED: FUROSEMIDE 40 MG/4 ML INJECTABLE VIAL IVPUSH SCH ×2 (10:00→11:30)
[2021-06-03] MEDS ORDERED: APIXABAN 5 MG TABLET ONE (10:26)
[2021-06-03] MEDS ORDERED: GABAPENTIN 100 MG CAPSULE ONE (10:27)
[2021-06-03] MEDS ORDERED: LIDOCAINE 5% TOPICAL PATCH ONE (10:27)
[2021-06-03] MEDS: APIXABAN 5 MG TABLET PO SCH ×2 (10:41→21:23)
[2021-06-03] MEDS: GABAPENTIN 100 MG CAPSULE PO SCH (10:42)
[2021-06-03] MEDS: SACUBITRIL/VALSARTAN 24 MG-26 MG TABLET PO SCH ×2 (10:42→21:27)
[2021-06-03] MEDS: METHIMAZOLE 5 MG TABLET PO SCH ×2 (10:42→21:23)
[2021-06-03] MEDS: LIDOCAINE 5% TOPICAL PATCH TP SCH (10:42)
[2021-06-03 15:49] LABS: PH,URINE 6.5 (5.0-8.0); URINE APPEARANCE CLEAR; URINE BILIRUBIN NEGATIVE (NEGATIVE); URINE COLOR YELLOW; URINE GLUCOSE (UA) NEGATIVE (NEGATIVE); URINE KETONE NEGATIVE (NEGATIVE); URINE LEUK ESTERASE NEGATIVE (NEGATIVE); URINE NITRITE NEGATIVE (NEGATIVE); URINE PROTEIN NEGATIVE (NEGATIVE)
[2021-06-03] MEDS ORDERED: LIDOCAINE PATCH REMOVAL MC SCH (22:00)
[2021-06-03] MEDS ORDERED: GABAPENTIN 100 MG CAPSULE PO ONE (22:34)
[2021-06-03] MEDS ORDERED: HYDROCORTISONE 0.5% TOPICAL CREAM 30 GM TUBE TP ONE (22:35)
[2021-06-03] MEDS ORDERED: LORATADINE 10 MG TABLET PO ONE (22:55)
[2021-06-04 01:19] VITALS: BMI 32.1
[2021-06-04 07:39] LABS: HEMATOCRIT 40.6 % (35.4-49); HEMOGLOBIN 13.7 GM/dL (11.7-16.9); MCH 31.2 pg (25.7-33.7); MCHC 33.8 g/dl (32.0-35.9); MEAN CELL VOLUME 92.5 fl (80-96); MEAN PLT VOLUME 8.7 fl (7.5-11.1); PLATELET COUNT 154 10^3/uL (134-434); RBC 4.39 M/mm3 (4.00-5.60); RDW 13.9 % (11.9-15.9); WHITE BLOOD COUNT 3.6 K/mm3 (4.0-10.0)
[2021-06-04 07:57] LABS: CALCIUM 8.7 mg/dL (8.5-10.1)
[2021-06-04 07:58] LABS: BLOOD UREA NITROGEN 24.3 mg/dL (7-18); MAGNESIUM 2.2 mg/dL (1.8-2.4)
[2021-06-04 08:01] LABS: CREATININE 1.2 mg/dL (0.55-1.3); PHOSPHOROUS 3.6 mg/dL (2.5-4.9)
[2021-06-04 10:24] VITALS: BP 107/86; PULSE 85; TEMP 98.5
[2021-06-04] MEDS: GABAPENTIN 100 MG CAPSULE PO SCH (10:55)
[2021-06-04] MEDS: LIDOCAINE 5% TOPICAL PATCH TP SCH (10:55)
[2021-06-04] MEDS: APIXABAN 5 MG TABLET PO SCH (10:55)
[2021-06-04] MEDS: METHIMAZOLE 5 MG TABLET PO SCH (10:56)
[2021-06-04] MEDS: SACUBITRIL/VALSARTAN 24 MG-26 MG TABLET PO SCH (10:57)
== END 2021-06-04 12:45 | disposition left against medical advice (07) | DRG 469 ==
LOC: JER 19:02 → JERBED 21:58 → J4W 06-03 20:43
PROVIDERS: ADMIT Hospitalist; ATTEND Internal Medicine
DX: N17.9 Acute kidney failure, unspecified (principal); I11.0 Hypertensive heart disease with heart failure; I50.23 Acute on chronic systolic (congestive) heart failure; I44.7 Left bundle-branch block, unspecified; K21.9 Gastro-esophageal reflux disease without esophagitis; G40.909 Epilepsy, unspecified, not intractable, without status epilepticus; F41.9 Anxiety disorder, unspecified; I42.8 Other cardiomyopathies; I47.2 Ventricular tachycardia; E05.90 Thyrotoxicosis, unspecified without thyrotoxic crisis or storm; I25.10 Atherosclerotic heart disease of native coronary artery without angina pectoris; I51.3 Intracardiac thrombosis, not elsewhere classified; E66.9 Obesity, unspecified; Z68.32 Body mass index [BMI] 32.0-32.9, adult
CPT/HCPCS: 36415; 71045-TC-FY; 76604; 76775-TC; 80048; 80053; 81003; 82570; 83735; 83880; 84100; 84443; 84484; 84540; 85025; 85027; 85610; 85730; 86850; 86900; 86901; 93005; 93010; 93306-TC; 93308; 99285-25; C9803; U0003; U0005

== ENCOUNTER 2021-07-18 06:15 | Emergency (ER) | payer OTHER ==
[2021-07-18 06:46] VITALS: BP 100/61; PULSE 83; TEMP 97.8; BMI 29.7
[2021-07-18] MEDS ORDERED: ACETAMINOPHEN 1000 MG/100 ML BAG IVPB ONE (09:02)
[2021-07-18 09:08] LABS: EOS % 5.3 % (0-4.5); HEMATOCRIT 41.6 % (35.4-49); HEMOGLOBIN 13.9 GM/dL (11.7-16.9); LYMPH % 34.5 % (8-40); MCH 30.7 pg (25.7-33.7); MCHC 33.3 g/dl (32.0-35.9); MEAN CELL VOLUME 92.3 fl (80-96); MEAN PLT VOLUME 8.8 fl (7.5-11.1); MONO % 11.3 % (3.8-10.2); NEUT % 47.9 % (42.8-82.8); PLATELET COUNT 166 10^3/uL (134-434); RBC 4.51 M/mm3 (4.00-5.60); RDW 14.4 % (11.9-15.9); WHITE BLOOD COUNT 4.9 K/mm3 (4.0-10.0)
[2021-07-18] MEDS ORDERED: ACETAMINOPHEN INJECTION 100 ML IVPB ONE (09:22)
[2021-07-18 09:23] LABS: CHLORIDE 105 mmol/L (98-107); SODIUM 139 mmol/L (136-145)
[2021-07-18 09:25] LABS: CALCIUM 9.7 mg/dL (8.5-10.1); GLUCOSE,RANDOM 99 mg/dL (74-106)
[2021-07-18 09:26] LABS: ANION GAP 8 MMOL/L (8-16); BLOOD UREA NITROGEN 38.4 mg/dL (7-18); CO2 26 mmol/L (21-32)
[2021-07-18 09:29] LABS: CREATININE 1.1 mg/dL (0.55-1.3); SGOT/AST 39 U/L (15-37); SGPT/ALT 28 U/L (13-61)
[2021-07-18 09:31] LABS: BILIRUBIN,TOTAL 0.5 mg/dL (0.2-1); TOT PROT 6.4 g/dl (6.4-8.2)
[2021-07-18 09:32] LABS: ALK PHOS 64 U/L (45-117)
== END 2021-07-18 13:00 | disposition home or self-care (01) ==
LOC: JER 06:15
PROC: 3E0333Z Introduction of Anti-inflammatory into Peripheral Vein, Percutaneous Approach (ICD-10-PCS; principal; 2021-07-18)
DX: R10.9 Unspecified abdominal pain (principal)
CPT/HCPCS: 36415; 74177-TC; 80053; 84439; 84443; 85025; 93005; 93010; 96374; 99285-25; Q9967

== ENCOUNTER 2021-07-31 20:09 | Inpatient (IN) | payer OTHER ==
[2021-07-31 20:32] VITALS: TEMP 97.4; BMI 31.4
[2021-07-31] MEDS ORDERED: SODIUM CHLORIDE 0.9% 500 ML INFUS.BAG IV ONE ×2 (21:04)
[2021-07-31] MEDS ORDERED: MAG HYDROX/AL HYDROX/SIMETH 30 ML UNIT-DOSE CUP PO ONE (21:04)
[2021-07-31] MEDS ORDERED: FAMOTIDINE 20 MG/50 ML IVPB 20 MG/50 ML MG IVPB ONE (21:04)
[2021-07-31] MEDS ORDERED: MAG HYDROX/AL HYDROX/SIMETH 30 ML UNIT-DOSE CUP ONE (21:07)
[2021-07-31] MEDS ORDERED: FAMOTIDINE 10 MG TABLET PO ONE (21:08)
[2021-07-31] MEDS ORDERED: FAMOTIDINE 20 MG TABLET ONE (21:09)
[2021-07-31 21:48] LABS: BASO % 0.8 % (0-2.0); EOS % 4.2 % (0-4.5); HEMATOCRIT 45.2 % (35.4-49); HEMOGLOBIN 15.4 GM/dL (11.7-16.9); LYMPH % 42.6 % (8-40); MCH 31.1 pg (25.7-33.7); MEAN CELL VOLUME 91.4 fl (80-96); MEAN PLT VOLUME 8.6 fl (7.5-11.1); MONO % 7.3 % (3.8-10.2); NEUT % 45.1 % (42.8-82.8); PLATELET COUNT 189 10^3/uL (134-434); RBC 4.94 M/mm3 (4.00-5.60); RDW 14.4 % (11.9-15.9); WHITE BLOOD COUNT 6.7 K/mm3 (4.0-10.0)
[2021-07-31 21:55] LABS: CALCIUM 8.8 mg/dL (8.5-10.1)
[2021-07-31 21:56] LABS: BLOOD UREA NITROGEN 33.4 mg/dL (7-18)
[2021-07-31 21:58] LABS: CREATININE 1.6 mg/dL (0.55-1.3)
[2021-07-31 22:00] LABS: BILIRUBIN,TOTAL 0.9 mg/dL (0.2-1); TOT PROT 6.8 g/dl (6.4-8.2)
[2021-07-31 22:03] LABS: N-TERMINAL BNP 3222.2 pg/ml (5-125)
[2021-07-31] MEDS ORDERED: ACETAMINOPHEN 1000 MG/100 ML BAG IVPB ONE (22:34)
[2021-07-31] MEDS ORDERED: FUROSEMIDE 40 MG/4 ML INJECTABLE VIAL IVPUSH ONE (22:35)
[2021-07-31] MEDS ORDERED: ACETAMINOPHEN INJECTION 100 ML IVPB ONE (23:41)
[2021-07-31] MEDS ORDERED: FUROSEMIDE 40 MG/4 ML INJECTABLE VIAL ONE (23:41)
[2021-08-01] MEDS ORDERED: ACETAMINOPHEN INJECTION 100 ML IVPB ONE
[2021-08-01] MEDS ORDERED: MAG HYDROX/AL HYDROX/SIMETH 30 ML UNIT-DOSE CUP PO PRN (01:40)
[2021-08-01] MEDS ORDERED: SIMETHICONE 80 MG TAB.CHEW (FP) PO PRN (01:40)
[2021-08-01] MEDS: POLYETHYLENE GLYCOL (HEALTHYLAX) 3350 17 GM PACKET PO SCH ×2 (02:32→10:31)
[2021-08-01 07:12] LABS: BASO % 0.7 % (0-2.0); EOS % 4.5 % (0-4.5); HEMATOCRIT 41.9 % (35.4-49); MCH 30.4 pg (25.7-33.7); MCHC 33.3 g/dl (32.0-35.9); MEAN CELL VOLUME 91.1 fl (80-96); MEAN PLT VOLUME 9.1 fl (7.5-11.1); MONO % 9.4 % (3.8-10.2); NEUT % 49.4 % (42.8-82.8); PLATELET COUNT 170 10^3/uL (134-434); RDW 14.2 % (11.9-15.9); WHITE BLOOD COUNT 6.1 K/mm3 (4.0-10.0)
[2021-08-01 08:40] LABS: ALBUMIN 3.5 g/dl (3.4-5.0); BLOOD UREA NITROGEN 34.2 mg/dL (7-18); CALCIUM 8.5 mg/dL (8.5-10.1)
[2021-08-01 08:48] LABS: BILIRUBIN,TOTAL 0.6 mg/dL (0.2-1); CREATININE 1.5 mg/dL (0.55-1.3); TOT PROT 6.2 g/dl (6.4-8.2)
[2021-08-01] MEDS ORDERED: FUROSEMIDE 40 MG/4 ML INJECTABLE VIAL IVPUSH SCH (10:00)
[2021-08-01] MEDS ORDERED: GABAPENTIN 100 MG CAPSULE PO SCH (10:00)
[2021-08-01] MEDS ORDERED: APIXABAN 5 MG TABLET PO SCH (10:00)
[2021-08-01] MEDS ORDERED: FAMOTIDINE 20 MG TABLET PO SCH (10:00)
[2021-08-01] MEDS ORDERED: SPIRONOLACTONE 25 MG TABLET PO SCH (10:00)
[2021-08-01] MEDS ORDERED: METHIMAZOLE 5 MG TABLET PO SCH (10:00)
[2021-08-01] MEDS ORDERED: FAMOTIDINE 20 MG TABLET ONE (10:19)
[2021-08-01] MEDS ORDERED: POLYETHYLENE GLYCOL (HEALTHYLAX) 3350 17 GM PACKET ONE (10:19)
[2021-08-01] MEDS ORDERED: SPIRONOLACTONE 25 MG TABLET ONE (10:19)
[2021-08-01] MEDS ORDERED: APIXABAN 5 MG TABLET ONE (10:19)
[2021-08-01] MEDS ORDERED: GABAPENTIN 100 MG CAPSULE ONE (10:20)
[2021-08-01] MEDS ORDERED: FUROSEMIDE 40 MG/4 ML INJECTABLE VIAL ONE (10:20)
[2021-08-01 11:05] LABS: URINE APPEARANCE CLEAR; URINE BILIRUBIN NEGATIVE (NEGATIVE); URINE COLOR YELLOW; URINE GLUCOSE (UA) NEGATIVE (NEGATIVE); URINE KETONE NEGATIVE (NEGATIVE); URINE LEUK ESTERASE NEGATIVE (NEGATIVE); URINE NITRITE NEGATIVE (NEGATIVE); URINE PROTEIN NEGATIVE (NEGATIVE); URINE UROBILINOGEN 0.2 mg/dL (0.2-1.0)
[2021-08-01 11:07] VITALS: BP 123/82; PULSE 92
[2021-08-01] MEDS ORDERED: FUROSEMIDE 40 MG TABLET (FP) PO SCH (13:00)
[2021-08-01] MEDS ORDERED: ACETAMINOPHEN 1000 MG/100 ML BAG IVPB PRN (17:01)
== END 2021-08-01 20:00 | disposition left against medical advice (07) | DRG 194 ==
LOC: JER 20:09 → JERBED 23:36
PROVIDERS: ADMIT Hospitalist; ATTEND Internal Medicine
DX: I11.0 Hypertensive heart disease with heart failure (principal); I50.23 Acute on chronic systolic (congestive) heart failure; N17.9 Acute kidney failure, unspecified; E78.5 Hyperlipidemia, unspecified; E05.90 Thyrotoxicosis, unspecified without thyrotoxic crisis or storm; I44.7 Left bundle-branch block, unspecified; I47.2 Ventricular tachycardia; R74.01 Elevation of levels of liver transaminase levels; I25.10 Atherosclerotic heart disease of native coronary artery without angina pectoris; G40.909 Epilepsy, unspecified, not intractable, without status epilepticus; I42.8 Other cardiomyopathies; F41.9 Anxiety disorder, unspecified; K21.9 Gastro-esophageal reflux disease without esophagitis; E66.9 Obesity, unspecified; Z68.31 Body mass index [BMI] 31.0-31.9, adult; K59.00 Constipation, unspecified; Z95.5 Presence of coronary angioplasty implant and graft
CPT/HCPCS: 36415; 71045-TC-FY; 76705-TC; 76775-TC; 80053; 81003; 82570; 83735; 83880; 84100; 84300; 84436; 84439; 84443; 84484; 84540; 85025; 87086; 93005; 93010; 99285-25; C9803-CS; U0003; U0005

== ENCOUNTER 2021-10-01 10:18 | Emergency (ER) | payer OTHER ==
[2021-10-01 10:39] VITALS: BP 111/82; PULSE 107; TEMP 97.8; BMI 31.8
[2021-10-01] MEDS ORDERED: ATENOLOL 25 MG TABLET (FP) PO ONE (11:03)
[2021-10-01] MEDS ORDERED: ATENOLOL 25 MG TABLET (FP) ONE (11:15)
[2021-10-01 12:23] LABS: BASO % 0.8 % (0-2.0); EOS % 1.8 % (0-4.5); HEMOGLOBIN 14.6 GM/dL (11.7-16.9); LYMPH % 24.6 % (8-40); MCH 30.1 pg (25.7-33.7); MCHC 33.2 g/dl (32.0-35.9); MEAN CELL VOLUME 90.7 fl (80-96); MONO % 7.7 % (3.8-10.2); NEUT % 65.1 % (42.8-82.8); PLATELET COUNT 195 10^3/uL (134-434); RBC 4.85 M/mm3 (4.00-5.60); RDW 15.7 % (11.9-15.9)
[2021-10-01 12:48] LABS: CALCIUM 8.9 mg/dL (8.5-10.1)
[2021-10-01 12:49] LABS: BLOOD UREA NITROGEN 30.8 mg/dL (7-18)
[2021-10-01 12:53] LABS: CREATININE 1.4 mg/dL (0.55-1.3)
[2021-10-01] MEDS ORDERED: SODIUM CHLORIDE 1,000 ML IV STA (13:09)
[2021-10-01 13:43] LABS: HIV INTERPRETATION NEGATIVE (NEGATIVE)
== END 2021-10-01 14:41 | disposition home or self-care (01) ==
LOC: JERFT 10:18 → JER 10:18 → JERFT 14:41
PROC: 3E0337Z Introduction of Electrolytic and Water Balance Substance into Peripheral Vein, Percutaneous Approach (ICD-10-PCS; principal; 2021-10-01)
DX: R25.2 Cramp and spasm (principal)
CPT/HCPCS: 36415; 80048; 85025; 87389; 99284-25